=== PATIENT | male | born 1950 | race Caucasian/White ===

== ENCOUNTER 2025-01-01 07:08 | Outpatient (CLI) | payer OTHER, SELFPAY ==
--- NOTE | ~2025-01-01 | CT_ITS ---
EXAMINATION: CT abdomen pelvis wo/w con DATE: 01/01/2025 08:11 INDICATION: Stage III chronic kidney disease TECHNIQUE: Computed tomography (CT) of the abdomen and pelvis was performed without intravenous contr ast. CT of the abdomen and pelvis was then performed with a total of 130 mL Omnipaque-350 intravenous contrast using a double-bolus technique for simultaneous opacification of the renal parenchyma and r enal collecting system. Automated exposure control and iterative reconstruction technique were employ ed. The dose-length product was 4096.37 mGy-cm. COMPARISON: None FINDINGS: Mild discoid atelectasis/scarring at the bilateral lung bases. Heart size is normal. No pericardial o r pleural effusion. Diffuse hepatic steatosis with focal sparing along the gallbladder fossa. Gallbla dder, spleen, pancreas and bilateral adrenal glands are normal. Extensive diverticulosis without salvador cent from trace stranding to suggest diverticular colitis. Likely prior sigmoidectomy with anastomoti c suture line along the short sigmoid colon. Small bowel and appendix are normal. Nephrolithiasis with 2 nonobstructing stones in the right kidney the larger measuring 11 mm at the re nal pelvis and the smaller 2 mm stone in a middle calyx.. No hydronephrosis. The right ureter is opac ified in its near entirety on the post contrast images. No contrast evident within the normal caliber left ureter. No urothelial irregularity is identified at the bilateral renal collecting systems and right ureter. Decompressed bladder is normal. Prostatomegaly. Small fat-containing left inguinal karyna ia. No free intraperitoneal gas or fluid. Severe lumbar and lower thoracic spondylosis. Severe left-s ided and moderate to severe right-sided hip osteoarthritis. IMPRESSION: 1. Bilateral nephrolithiasis including a 3 mm stone in the proximal left ureter without hydronephrosi s. 2. Diffuse hepatic steatosis. 3. Diverticulosis. Reviewed, dictated and finalized at location A. IMPRESSION: 1. Bilateral nephrolithiasis including a 3 mm stone in the proximal left ureter without hydronephrosis. 2. Diffuse hepatic steatosis. 3. Diverticulosis.
--- OUTSIDE RECORDS SUMMARY | 2025-01-01 07:12 | XMS_ITS | Encounter Summary ---
Author Organization [facility] Address 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
--- OUTSIDE RECORDS SUMMARY | 2025-01-01 07:12 | XMS_ITS | Encounter Summary ---
Author Organization [facility] Address [address] [place] [address] Care Team Providers Care Etymology Teacher Name Role Phone Unavailable Primary Care Provider Unavailabl e Encounter Details Date Type Department Care Team (Late st Contact Info) Description 07/24/2018 Lab Requisition [facility] [address] [facility] [place] [address] Gary Bergeron MD [facility] [address] [address] Social History Tobacco Use Types Packs/Day Years Used Date Smoking Tobacco: Never Smokeless Tobacco: Never Sex and Gender Information Value Date Recorded Sex Assigned at Not on file Legal Sex Male 7:37 AM CDT Gender Identity Not on file Sexual Orientation Not on file documented as of this encounter Plan of Treatment Not on file documented as of this encounter Procedures Procedure Name Priority Date/Time Associated Diagnosis Comments DERMATOPATHOLOGY Routine 07/23/2018 12:0 0 AM FLUOROSCOPE OPERATOR documented in this encounter Results * DERMATOPATHOLOGY (07/23/2018 12:00 AM FLUOROSCOPE OPERATOR) Case Report Dermatopathology Report Case: [id number] Authorizing Provider: Gary Bergeron MD Collected: 07/23/2018 12:00 AM Pathologist: Remedios Barriga MD Received: 07/24/2018 09:32 AM Specimen: Skin, mid upper back 8 12:56 PM FLUOROSCOPE OPERATOR DERMATOPATHOLOGY LABORATORY Final Diagnosis Specimen A. SKIN, mid upper back: BASAL CELL CARCINOMA, NODULAR TYPE (C44.519) 8 12:56 PM FLUOROSCOPE OPERATOR DERMATOPATHOLOGY LABORATORY Clinical History R/O BCC 12:56 PM [facility] DERMATOPATHOLOGY LABORATORY Gross Description Specimen A: Received is one formalin filled container labeled with the patient's name and designated mid upper back. The specimen consists of a shave biopsy measuring 6x5x1 mm. Jar 0. 12:56 PM [facility] DERMATOPATHOLOGY LABORATORY Microscopic Description Specimen A. SKIN, mid upper back: Within the dermis there are aggregates of basaloid cells with a high nuclear to cytoplasmic ratio and peripheral palisading. 12:56 PM [facility] DERMATOPATHOLOGY LABORATORY Disclaimer An external and internal positive and negative controls are appropriate for the histochemical, immunohistochemical and immunofluorescence stain(s) in this case (if any), except where stated explicitly. The performance characteristics of the stain(s) cited in this report were developed and its performance characteristic determined by the Dermatopathology Laboratory at [facility]. These tests need not be, and therefore are not, approved by the [place] Food and Drug Administration. The tests are used for clinical purposes. Billing Codes Specimen Charges Stain Charges 93716 1 12:56 PM [facility] DERMATOPATHOLOGY LABORATORY Embedded Images 12:56 PM [facility] DERMATOPATHOLOGY LABORATORY Pathology/Cytolog y TISSUE SPECIMEN FROM SKIN / Unknown 07/23/2018 07/24/2018 9:32 AM FLUOROSCOPE OPERATOR us Gary Bergeron MD LAB - PATHOLOGY/CYTOLOGY ORDERAB LES Final Result DERMATOPATHOLOGY LABORATORY [facility] - Department of Dermatology [address] [place] [address], [address] [place] [address], [facility] [phone] documented in this encounter Visit Diagnoses Not on filedocumented in this encounter
--- OUTSIDE RECORDS SUMMARY | 2025-01-01 07:12 | XMS_ITS | Referral Summary ---
Author Organization [facility] Address [address] [place] [address] Care Team Providers [employer] Engraver Name Role Phone Ever Gr MD Primary Care Provider + Jack Washington MD Unavailable [phone] Ever Gaspar MD Unavailable + [phone] Matt Martinez NP Unavailable [phone] Encounters Date Type Department Care Team Description 12/31/2024 8:28 AM CDT - 12/31/2024 11:59 PM CDT Hospital Encounter [facility] Cardiology [address] [place] [id number] Dyspnea, unspecified type Discharge Disposition: Discharge to home or self care 12/22/2024 8:25 AM CDT Lab [address] [address] 12/17/2024 9:25 AM CDT Lab [address] [address] 12/12/2024 8:10 AM CDT Lab [address] [address] 12/11/2024 10:50 AM CDT [address] [address] 12/08/2024 Orders Only [facility] [address] [place] [id number] Gary Bergeron MD 12/07/2024 8:10 PM CDT - 12/07/2024 10:41 PM CDT Emergency [facility] Emergency Department [address] [place] [address] Rash (Primary Dx) Discharge Disposition: Discharge to home or self care 10/28/2024 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/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:59 PM 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 Hospital Encounter [facility] Diagnostic Imaging [address] [place] [address] Kaleb Noel MD Dyspnea, unspecified type Discharge Disposition: Discharge to home or self care from Last 3 Months Allergies Active Allergy Reactions Criticality Noted Date Comments Hydromorphone Hallucinations Medium 10/14/2017 Naproxen Other (See comments) Low GI upset Penicillins Hives,Other (See comments),Urticaria Medium 07/12/2017 Penicillin Allergy Form Completed Phenytoin Nausea & Vomiting Low 01/21/2019 Medications cholecalciferol (VITAMIN D-3) 1,000 unit tablet Take 2 tablets (2,000 Units total) by mouth daily Active memantine (NAMENDA) 10 mg tablet Take 1 tablet (10 mg total) by mouth 2 (two) times a day Active vitamin B complex capsule Take 1 capsule by mouth daily Active fluticasone-umec lidin-vilanter (Trelegy Ellipta) 200-62.5-25 mcg inhaler Inhale 1 puff daily Active omega-3 fatty acids 1,000 mg capsule Take 1,000 mg by mouth daily Active rosuvastatin (CRESTOR) 40 mg tablet Take 1 tablet (40 mg total) by mouth daily Active donepeziL (ARICEPT) 10 mg tablet Take 1 tablet (10 mg total) by mouth nightly Active tadalafiL (CIALIS) 5 mg tablet Take 0.5 tablets (2.5 mg total) by mouth daily 30 tablet 11 06/08/20 22 Active albuterol 2.5 mg /3 mL (0.083 %) nebulizer solution Take 3 mL (2.5 mg total) by nebulization every 6 (six) hours as needed for wheezing Active Tezspire 210 mg/1.91 mL (110 mg/mL) pen injector 01/08/20 24 Active lactobacillus combination no.4 (Probiotic) 3 billion cell capsule Active Airsupra 90-80 mcg/actuation HFA aerosol inhaler Inhale 2 puffs every 6 (six) hours as needed 05/01/20 24 Active magnesium oxide (MAG-OX) 400 mg (241.3 mg elemental magnesium) tablet Take 1 tablet (400 mg total) by mouth daily Active polyethylene glycol (MIRALAX) 17 gram/dose bulk powder Take 17 g by mouth daily Active multivit-min/fol ic/vit K/lycop (MEN'S MULTIVITAMIN ORAL) Take by mouth Active senna-docusate (PERICOLACE) 8.6-50 mg 1-2 times daily as needed for constipation 60 tablet 1 06/03/20 24 Active ondansetron (ZOFRAN) 4 mg tablet Every 4-6 hours as needed 30 tablet 1 06/03/20 24 Active ascorbic acid (VITAMIN C) 500 mg tablet,chewable Take 1 tablet/chew tab (500 mg total) by mouth 2 (two) times a day 60 tablet/chew tab 06/03/20 24 Active aspirin 81 mg chewable tablet Take 1 tablet (81 mg total) by mouth 2 (two) times a day 60 tablet 06/03/20 24 Active oxyCODONE-acetam inophen (PERCOCET) 5-325 mg per tabletIndication s:Pain Take 1-2 tablets by mouth every 4 (four) hours as needed for pain 63 tablet 06/03/20 24 Active traMADoL (ULTRAM) 50 mg tablet Take 1 tablet (50 mg total) by mouth every 6 (six) hours as needed for pain Active predniSONE (DELTASONE) 10 mg tablet Take 6 tablets (60 mg) by mouth daily for 2 days, THEN 4 tablets (40 mg) daily for 2 days, THEN 3 tablets (30 mg) daily for 2 days, THEN 2 tablets (20 mg) daily for 2 days, THEN 1 tablet (10 mg) daily for 2 days. 32 tablet 12/08/19 25 025 Active Problems Problem Noted Date Diagnosed Date S/P TKR (total knee replacement), right 06/02/20 24 Primary osteoarthritis of right knee 05/14/2024 Arthritis 01/10/2024 Rhinitis 01/10/2024 Mixed hyperlipidemia 05/28/2023 Assessment & Plan (04/28/2024 9:04 AM CDT): Continue Crestor Assessment & Plan (05/28/2023 1:20 PM CDT): Continue Crestor for hyperlipidemia. 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 There are no new EKG changes. The pattern of the chest pain is not compatible with coronary ischemia. I did offer the patient a stress test though he has had 2 negative stress tests over the last 3 years. He defers at this time. Seborrheic keratosis 05/19/2021 Senile angioma 05/19/2021 Sepsis 04/24/2021 Perirectal abscess 04/23/2021 Diastolic dysfunction 04/04/2021 Assessment & Plan (04/03/2022 10:16 AM CDT): Asymptomatic with no evidence of congestive heart failure. Assessment & Plan (04/04/2021 10:57 AM CDT): Stable. His dyspnea has improved with treatment of his asthma. No changes recommended. Left anterior fascicular block 04/04/2021 Assessment & Plan (04/28/2024 9:04 AM CDT): No signs or symptoms of advanced heart block. EKG is stable. Assessment & Plan (05/28/2023 1:19 PM CDT): Stable. No signs or symptoms of advancing heart block. Recheck in 1 year Assessment & Plan (04/03/2022 10:16 AM CDT): Stable and unchanged. Assessment & Plan (04/04/2021 10:57 AM CDT): Stable. No syncope. 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 06/23/2019 Primary osteoarthritis of left knee 05/14/2019 Overview (05/14/2019): Added automatically from request for surgery [id number] Abnormal CT scan 02/16/2019 Overview (02/16/2019): Added automatically from request for surgery [id number] Abnormal feces 02/16/2019 Overview (02/16/2019): Added automatically from request for surgery [id number] Chronic pain of left knee 08/27/2018 Arthritis of left knee 08/27/2018 Acute medial meniscus tear of left knee 08/27/20 18 Preoperative evaluation to r ule out surgical contraindication 06/11/2018 Assessment & Plan (04/28/2024 9:03 AM CDT): The patient is cleared for the proposed total knee replacement. Rotator cuff arthropathy of left shoulder 2017 Overview (05/27/2018): Added automatically from request for surgery [id number] Bicipital tendinitis, left 05/27/2018 Overview (05/27/2018): Added automatically from request for surgery [id number] Localized osteoarthritis of left shoulder 2017 Obstructive sleep apnea syndrome 03/21/2018 Myalgia 02/10/2018 Rotator cuff arthropathy, left 11/21/2017 Overview (11/21/2017): Added automatically from request for surgery [id number] Left bicipital tenosynovitis 11/21/2017 Overview (11/21/2017): Added automatically from request for surgery [id number] Cervicalgia 10/15/2017 Cervical radiculopathy 10/15/2017 Spondylosis of cervical joint without myelopathy 10/15/2017 Cervical spinal stenosis 10/15/2017 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 04/30/2017 Numbness of foot 08/24/2016 Overview (12/13/2016): Numbness of foot 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 Patient is tired of having these debilitating recurrent symptoms. Flex sigmoidoscopy done while in hospital, most recent colonoscopy done 2 years ago. The procedure of robotic assisted sigmoidectomy was explained to the patient along with the risks, benefits, and post operative period including short hospital stay after surgery to which the patient agrees. Immunizations Immunization Administration Dates Next Due Influenza, Unspecified 06/09/2021 Tdap 04/13/2020,10/09/2007 Social History Tobacco Use Types Packs/Day Years Used Date Smoking Tobacco: Never Smokeless Tobacco: Never Tobacco Cessation:Counseling Given: Not Answered Alcohol Use Standard Drinks/Week Comments Yes 1 (1 standard drink = 0.6 oz pur e alcohol) AUDIT-C Answer Date Recorded Q1: How often do you have a drink containing alc ohol? Monthly or less 06/02/2024 Q2: How many drinks containi ng alcohol do you have on a typical day when you are drinking? 1 or 2 06/02/2024 Frequency of Binge Drinking Not on file 05/11 PHQ-2 Answer Date Recorded PHQ-2 Total Score (If total score is 3 or more points, staff should administer the PHQ-9) 0 04/24/2021 Personal Safety Answer Date Recorded Have you ever been in or are you currently in a harmful physical or emotional relationship or is someone making you feel afraid or unsafe? 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 Gender Identity Not on file Sexual Orientation Not on file Last Filed Vital Signs Vital Sign Reading Time Taken Comments Blood Pressure 158/90 12/07/2024 8:06 PM CDT Pulse 73 12/07/2024 8:06 PM CDT Temperature 36.5 C (97.7 F) 12/07/2024 8:06 PM CDT Respiratory Rate 18 12/07/2024 8:06 PM CDT Oxygen Saturation 94% 12/07/2024 8:06 PM CDT Inhaled Oxygen Concentration - - Weight 101.6 kg (224 lb) 12/07/2024 8:06 PM CDT Height 177.8 cm (5' 10 ) 12/07/2024 8:06 PM CDT Body Mass Index 32.14 12/07/2024 8:06 PM CDT Plan of Treatment Not on file Medical Devices Implanted Type Area Tin Roofer Device Identifier Shelf Expiration Date Model / Serial / Lot Exactech 320-38-00 Equinoxe 38mm Reverse Shoulder +0mm Liner Humeral - [id number] - [id number] Implanted:Qty: 1 on 06/10/2018 by Steven Downs MD at [facility] Other - see comments Left: Shoulder Exactech 320-38-00 / [id number] / Exactech 320-01-38 38mm Glenosphere Reverse Shoulder Component Glenoid - [id number] - [id number] Implanted:Qty: 1 on 06/10/2018 by Steven Downs MD at [facility] Other - see comments Left: Shoulder Exactech 05/07/2028 320-01-38 / [id number] / Exactech 320-15-01 Equinoxe Reverse Shoulder Standard Plate Glenoid - [id number] - [id number] Implanted:Qty: 1 on 06/10/2018 by Steven Downs MD at [facility] Other - see comments Left: Shoulder Exactech 04/13/2028 320-15-01 / [id number] / Exactech 320-20-00 Reverse Torque Define Shoulder Kit Screw - [id number] - [id number] Implanted:Qty: 1 on 06/10/2018 by Steven Downs MD at [facility] Other - see comments Left: Shoulder Exactech 05/07/2023 320-20-00 / [id number] / Exactech 320-20-18 Equinoxe 4.5mm 18mm Kit Compression Lock Cap Reverse Shoulder - [id number] - [id number] Implanted:Qty: 1 on 06/10/2018 by Steven Downs MD at [facility] Other - see comments Left: Shoulder Exactech 01/14/2023 320-20-18 / [id number] / Exactech [id number]- Equinoxe Reverse Shoulder +0mm Tray Humeral Adapter - [id number] - [id number] Implanted:Qty: 1 on 06/10/2018 by Steven Downs MD at [facility] Other - see comments Left: Shoulder Exactech 04/07/2028 320-10-00 / [id number] / Exactech 300-30-08 Equinoxe 8mm 70mm Stem Humeral Sterile - [id number] - [id number] Implanted:Qty: 1 on 06/10/2018 by Steven Downs MD at [facility] Other - see comments Left: Shoulder Exactech 11/27/2027 300-30-08 / [id number] / Exactech 320-15-05 Equinoxe Lock Reverse Shoulder Glenosphere Screw Bone - [id number] - [id number] Implanted:Qty: 1 on 06/10/2018 by Steven Downs MD at [facility] Screw Left: Shoulder Exactech 06/08/2023 320-15-05 / [id number] / Exactech 320-20-38 Equinoxe 4.5mm 38mm Kit Compression Lock Cap Reverse Shoulder - [id number] - [id number] Implanted:Qty: 1 on 06/10/2018 by Steven Downs MD at [facility] Screw Left: Shoulder Exactech 01/08/2023 320-20-38 / [id number] / Exactech 320-20-18 Equinoxe 4.5mm 18mm Kit Compression Lock Cap Reverse Shoulder - [id number] - [id number] Implanted:Qty: 1 on 06/10/2018 by Steven Downs MD at [facility] Screw Left: Shoulder Exactech 03/22/2021 320-20-18 / [id number] / Depuy [employer] [id number] Attune 5mm Cruciate Retaining Rotate Platform Knee 8 Insert - [id number] Implanted:Qty: 1 on 06/02/2019 by Steven Downs MD at [facility] Left: Knee [employer] 04/08/2024 [id number] / / [id number] Depuy [employer] [id number] Attune Cruciate Retain Cementless Knee Left 8 Component Femoral - [id number] Implanted:Qty: 1 on 06/02/2019 by Steven Downs MD at [facility] Left: Knee [employer] 10/09/2027 [id number] / / [id number] [employer] [id number] Attune Cementless Rotate Platform Knee 8 Baseplate Tibial - [id number] Implanted:Qty: 1 on 06/02/2019 by Steven Downs MD at [facility] Left: Knee [employer] 06/08/2028 [id number] / / [id number] [employer] Attune Cruciate Retain Cementless Knee Right 8 Component Femoral [id number] - [id number] Implanted:Qty: 1 on 06/02/2024 by Steven Downs MD at [facility] Right: Knee [employer] [id number] 04/08/2034 [id number] / / [id number] [employer] Attune Fb Tib Base Sz 7 Por [id number] - [id number] Implanted:Qty: 1 on 06/02/2024 by Steven Downs MD at [facility] Right: Knee [employer] [id number] 03/08/2034 [id number] / / [id number] [employer] Insert Tibial Knee Fixed Rm Posterior Stabilized Attune 6mm Size 8 Polyethylene [id number] - [id number] Implanted:Qty: 1 on 06/02/2024 by Steven Downs MD at [facility] Right: Knee [employer] [id number] 02/06/2031 [id number] / / [id number] Explanted Type Area Tin Roofer Device Identifier Shelf Expiration Date Model / Serial / Lot [employer] [id number] 6fr 24cm 145cm Radiopaque Positioner Filiform Flexible Tip - [id number] Implanted:Qty: 1 on 09/13/2022 by Kristie Mcfarland MD at [facility] Explanted:Qty: 1 on 09/21/2022 by Kristie Mcfarland MD Left: Ureter [employer] [id number] 12/05/2024 [id number] / / [id number] [employer] [id number] 6fr 24cm 145cm Radiopaque Positioner Filiform Flexible Tip - [id number] Implanted:Qty: 1 on 09/13/2022 by Kristie Mcfarland MD at [facility] Explanted:Qty: 1 on 09/21/2022 by Kristie Mcfarland MD Right: Ureter [employer] [id number] 12/05/2024 [id number] / / [id number] Procedures Procedure Name Priority Date/Time Associated Diagnosis Comments TRANSTHORACIC ECHO (TTE) COMPLETE W DOPPLER/CF WO CONTRAST Routine 12/31/2024 9:39 AM CDT Dyspnea, unspecified type ANTI-DOUBLE STRANDED DNA ANTIBODIES Routine 12/22/2024 8:31 AM CDT ANN MARIE QUALITATIVE WITH REFLEX TO ANN MARIE QUANTITATIVE Routine 12/22/2024 8:31 AM CDT URINALYSIS, MICROSCOPIC ONLY Routine 12/17/2024 9:27 AM CDT URINE CULTURE Routine 12/17/2024 9:27 AM CDT URINALYSIS AND REFLEX TO MICROSCOPIC AND CULTURE Routine 12/17/2024 9:27 AM CDT CRYOGLOBULIN, SERUM ONLY Routine 12/12/2024 8:12 AM CDT URINALYSIS, MICROSCOPIC ONLY Routine 12/11/2024 11:00 AM CDT URINALYSIS AND REFLEX TO MICROSCOPIC Routine 12/11/2024 11:00 AM CDT HEPATITIS PANEL, ACUTE Routine 12/11/2024 11:00 AM CDT URINE CULTURE Routine 12/11/2024 11:00 AM CDT HIV 1/2 ANTIBODY PLUS P24 ANTIGEN Routine 12/11/2024 11:00 AM CDT SURGICAL PATHOLOGY Routine 12/08/2024 12 :00 AM CDT EGFR STAT 12/07/2024 9:48 PM CDT DIFFERENTIAL AUTO STAT 12/07/2024 9:4 8 PM CDT SEPSIS LACTATE WITH REFLEX Routine 12/07/2024 9:48 PM CDT COMPREHENSIVE METABOLIC PANEL STAT 12/07/2024 9:48 PM CDT CBC WITH AUTO DIFFERENTIAL STAT 12/07/2024 9:48 PM CDT XR CHEST PA LATERAL 2 VIEWS Schedule Routine, Read Routine (OP Routine) 10/28/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 Dyspnea, unspecified type PSA SCREEN Routine 02/18/2024 8:12 AM CDT FLEXIBLE SIGMOIDOSCOPY 04/24/2021 9:06 AM CDT COLONOSCOPY 03/10/2019 11:02 AM CDT from Last 3 Months or Most Recently Relevant to Health Maintenance Results * TRANSTHORACIC ECHO (TTE) COMPLETE W DOPPLER/CF WO CONTRAST (12/31/2024 9:39 AM CDT) LV EF 65 % CONS SCIMAGE Anatomical Region Laterality Modality Ultrasound 12/31/2024 9:04 AM CDT Narrative 12/31/2024 2:24 PM CDT [address] [address] Echocardiogram Report Patient Name: CINTHIA VOSS : 1950 Study Date: 12/31/2024 9:04:18 AM Gender: M Tech: CAROL Location: Echo Lab 2 Ref Provider: FRANKLYN NOEL Height(Cm): BSA: Weight(Kg): Quality: Adequate Order Provider: FRANKLYN NOEL PROCEDURES: Echocardiographic Report: Transthoracic echocardiogram with complete 2D, M-Mode, and color Doppler examination. INDICATIONS: Dyspnea and R06.00 Dyspnea, unspecified. MEASUREMENTS: 2D/MM Value Range Doppler Value Range EF Teich MM 47.8 % [ 52.0 - 72.0 ] MCKENZIE Vmax 3.37 cm2 Estimated EF 65 % AV Mean PG 1 mmHg LVIDd MM 4.35 cm [ 4.20 - 5.80 ] AV Peak Herve 0.64 m/s [ 1.00 - 1.70 ] LVIDs MM 3.32 cm [ 2.50 - 4.00 ] AV VTI 11.36 cm LVPWd MM 1.41 cm [ 0.60 - 1.00 ] LVOT Diam 2.43 cm IVSd MM 1.27 cm [ 0.60 - 1.00 ] LVOT Peak Herve 0.46 m/s [ 0.70 - 1.10 ] LA Dimension MM 3.76 cm [ 3.00 - 4.00 ] LVOT VTI 8.57 cm AoR Diam MM 3.80 cm [ 3.10 - 3.70 ] MV E Peak Herve 0.33 m/s [ 0.60 - 1.30 ] MV A Peak Herve 0.57 m/s [ 1.00 - 1.20 ] MV Mean PG 1 mmHg MV PHT 31 msec [ 20 - 100 ] MVA 7.00 MV Decel Time 108 msec [ 104 - 258 ] PV Peak Herve 0.75 m/s [ 0.40 - 0.80 ] RVSP 8.00 mmHg [ 10.00 - 36.00 ] E` 0.04 m/s E/E` 7.93 [ <= 10.00 ] PA Pressure 8.00 mmHg [ 10.00 - 36.00 ] 2D/MM Value Range Doppler Value Range - FINDINGS: Atrial Septum: Normal atrial septum. Left Ventricle: Normal left ventricular systolic function with no focal wall motion abnormalities. Normal left ventricular size. Mild concentric left ventricular hypertrophy. Impaired diastolic relaxation Grade I. Ejection Fraction is estimated to be 65 %. Left Atrium: The left atrium is normal in size. Right Ventricle: Normal right ventricular size. Normal right ventricular systolic function. Right Atrium: The right atrium is normal in size. Aortic Valve: Normal structure of the aortic valve. Mitral Valve: Normal structure of the mitral valve. Pulmonic Valve: Normal structure of the pulmonic valve. Tricuspid Valve: Right Ventricular Systolic Pressure could not be estimated due to inadequate visualization of TR jet. Pericardium: There is an anterior echo free space consistent with epicardial fat pad. Aorta: Normal aortic root. Sinus of Valsalva is normal. Aortic arch is normal. Descending aorta is normal. IVC: Normal size and normal respiratory collapse consistent with normal right atrial pressure (<5 mmHg). Pulmonary Artery: Normal pulmonary artery size. CONCLUSIONS: Normal left ventricular systolic function with no focal wall motion abnormalities. Normal left ventricular size. Mild concentric left ventricular hypertrophy. Impaired diastolic relaxation Grade I. Ejection Fraction is estimated to be 65 %. Right Ventricular Systolic Pressure could not be estimated due to inadequate visualization of TR jet. There is an anterior echo free space consistent with epicardial fat pad. Electronically Signed By: Callum Elias MD 12/31/2024 2:23:23 PM CDT Procedure Note Callum Elias MD - 12/31/[address] [address] Echocardiogram Report Patient Name: CINTHIA VOSS : 1950 Study Date: 12/31/2024 9:04:18 AM Gender: M Tech: CAROL Location: Echo Lab 2 Ref Provider: FRANKLYN NOEL Height(Cm): BSA: Weight(Kg): Quality: Adequate Order Provider: FRANKLYN NOEL PROCEDURES: Echocardiographic Report: Transthoracic echocardiogram with complete 2D, M-Mode, and color Dopplerexamination. INDICATIONS: Dyspnea and R06.00 Dyspnea, unspecified. MEASUREMENTS: 2D/MM Value Range Doppler ValueRange EF Teich MM 47.8 % [ 52.0 - 72.0 ] MCKENZIE Vmax 3.37cm2 Estimated EF 65 % AV Mean PG 1 mmHg LVIDd MM 4.35 cm [ 4.20 - 5.80 ] AV Peak Herve 0.64 m/s[ 1.00 - 1.70 ] LVIDs MM 3.32 cm [ 2.50 - 4.00 ] AV VTI 11.36cm LVPWd MM 1.41 cm [ 0.60 - 1.00 ] LVOT Diam 2.43cm IVSd MM 1.27 cm [ 0.60 - 1.00 ] LVOT Peak Herve 0.46 m/s[ 0.70 - 1.10 ] LA Dimension MM 3.76 cm [ 3.00 - 4.00 ] LVOT VTI 8.57cm AoR Diam MM 3.80 cm [ 3.10 - 3.70 ] MV E Peak Herve 0.33 m/s[ 0.60 - 1.30 ] MV A Peak Herve 0.57 m/s [ 1.00 - 1.20 ] MV Mean PG 1 mmHg MV PHT 31 msec [ 20 - 100 ] MVA 7.00 MV Decel Time 108 msec [ 104 - 258 ] PV Peak Herve 0.75 m/s [ 0.40 - 0.80 ] RVSP 8.00 mmHg [ 10.00 - 36.00 ] E` 0.04 m/s E/E` 7.93 [ <= 10.00 ] PA Pressure 8.00 mmHg [ 10.00 - 36.00 ] 2D/MM Value Range Doppler ValueRange - FINDINGS: Atrial Septum: Normal atrial septum. Left Ventricle: Normal left ventricular systolic function with no focal wall motionabnormalities. Normal left ventricular size. Mild concentric left ventricular hypertrophy.Impaired diastolic relaxation Grade I. Ejection Fraction is estimated to be 65 %. Left Atrium: The left atrium is normal in size. Right Ventricle: Normal right ventricular size. Normal right ventricular systolicfunction. Right Atrium: The right atrium is normal in size. Aortic Valve: Normal structure of the aortic valve. Mitral Valve: Normal structure of the mitral valve. Pulmonic Valve: Normal structure of the pulmonic valve. Tricuspid Valve: Right Ventricular Systolic Pressure could not be estimated due toinadequate visualization of TR jet. Pericardium: There is an anterior echo free space consistent with epicardial fat pad. Aorta: Normal aortic root. Sinus of Valsalva is normal. Aortic arch is normal.Descending aorta is normal. IVC: Normal size and normal respiratory collapse consistent with normal rightatrial pressure (<5 mmHg). Pulmonary Artery: Normal pulmonary artery size. CONCLUSIONS: Normal left ventricular systolic function with no focal wall motionabnormalities. Normal left ventricular size. Mild concentric left ventricular hypertrophy.Impaired diastolic relaxation Grade I. Ejection Fraction is estimated to be 65 %. Right Ventricular Systolic Pressure could not be estimated due toinadequate visualization of TR jet. There is an anterior echo free space consistent with epicardial fat pad. Electronically Signed By: Callum Elias MD 12/31/2024 2:23:23 PM CDT us Franklyn Noel MD CV ECHO PROCEDURES Gena l Result * ANN MARIE ab ql w/rflx to ANN MARIE qn (12/22/2024 8:31 AM CDT) ANN MARIE Negative Comment: Interpretive Data Normal range for ANN MARIE Qualitative Antibody = Negative. 1. ANN MARIE is performed using indirect immunofluorescence against HEp-2 cells 2. ANN MARIE titers are performed on all positive qualitative results. 3. A significantly positive ANN MARIE result is defined as a positive nuclear fluorescence at a titer of 1:80 or greater. 4. 15% of normal people above age 65 have significantly positive ANN MARIE results. 5% or less of normal people age 65 or under have significantly positive ANN MARIE results. Current interpretive data was last revised on 2020. Testing performed by: [facility], [address] [place] [address], [place]., [address] Blood 12/22/2024 8:31 AM CDT 12/22/2024 2:28 PM CDT us Gary Bergeron MD LAB BLOOD ORDERABLES Final Resu lt ASHLYN JASPAL ([place]) 1 [facility] Department [place] [address] * Anti-double stranded DNA abs (12/22/2024 8:31 AM CDT) dsDNA Ab <1.0 <=4.0 IUnits/mL Comment: Interpretive Data Negative: < or = 4 IUnits/mL Indeterminate: 5 - 9 IUnits/mL Positive: > or = 10 IUnits/mL Current interpretive data was last revised on 2017. Testing performed by: [facility], [address] [place] [address], [place]., [address] Blood 12/22/2024 8:31 AM CDT 12/22/2024 2:28 PM CDT Narrative ASHLYN SHAY ([place]) - 12/23/2024 10:57 AM CDT [id number] us Gary Bergeron MD LAB BLOOD ORDERABLES Final Resu lt Performing Organization Address City/[facility]/ZIP Co de Phone Number ASHLYN SHAY ([place]) 1 [facility] [employer] [address] * (ABNORMAL) Urinalysis reflex to microscopic and culture Urine (12/17/2024 9:27 AM CDT) Color, ur Dark-Yellow Clarity, ur Turbid(A) Clear [facility] ([place]) Specific gravity, ur 1.026 1.003 - 1.030 [facility] ([place]) pH, urine 6.0 [facility] ([place]) Comment: Interpretive Data U rine pH is affected by diet, medications, systemic acid-base disturbances, and renal tubular function. pH may affect urinary stone formation. For example, urine pH below 6.0 may help reduce the tendency for calcium phosphate stones and pH greater than 6.0 may reduce the tendency for uric acid stone formation. Source: [facility] [employer] Current Interpretive Data was last revised on 2017 Protein, ur ql 1+(A) Negative [facility] ([place]) Glucose, ur ql Negative Negative [facility] [place]) Ketones, ur Negative Negative [facility] ([place]) Bilirubin, ur Negative Negative [facility] ([place]) Blood, ur 3+(A) Negative [facility] [place]) Urobilinogen, ur <2.0 <2.0 mg/dL [facility] [place]) Nitrite, ur Negative Negative [facility] [place]) Leukocyte esterase, ur 2+(A) Negative [facility] [place]) UA reflex comment Reflex to microscopic UA will be performed. [facility] [place]) Urine 12/17/2024 9:27 AM CDT 12/17/2024 10:41 AM CDT us Ever Gr MD LAB MICROBIOLOGY - GENER AL ORDERABLES Final Result Performing Organization Address City/[facility]/ZIP Co de Phone Number ASHLYN SHAY ([place]) 1 [facility] [place] [address] * (ABNORMAL) Urinalysis, microscopic only (12/17/2024 9:27 AM CDT) WBC, ur 21-50(A) 0 - 5 /HPF RBC, ur >50(A) 0 - 2 /HPF [facility] Epithelial cells, squamous, ur 1-5 0 - 5 /HPF [facility] ([place]) Mucous, ur Present(A) [facility] [place] ([place]) Culture Reflex Comment Reflex to urine culture will be performed. [facility] ([place] Urine 12/17/2024 9:27 AM CDT 12/17/2024 10:41 AM CDT Ever Gr MD LAB URINE ORDERABLES Fin al Result Performing Organization Address [facility]/ZIP Co de Phone Number [facility] ([place]) [address] [place] [address] [place] [address] * Urine culture Urine (12/17/2024 9:27 AM CDT) Report Final Report: Less than 100,000 colonies/mL (clinically insignificant growth based on current clinical standards) Comment:Testing performed by : [facility], [address] [place]., [address] Organism (CLINICALLY INSIGNIFICANT GROWTH ASHLYN [facility] ([place]) Urine 12/17/2024 9:27 AM CDT 12/17/2024 3:34 PM CDT Narrative [facility] ([place]) - 12/19/2024 7:41 AM CDT Urine culture reflexed based upon urinalysis results. Testing performed by [facility] ([phone]) Ever Gr MD LAB MICROBIOLOGY - GENER AL ORDERABLES Final Result Performing Organization Address City/[facility]/ZIP Co de Phone Number ASHLYN [facility] ([place]) 1 [facility] [place] [place] [address] * Cryoglobulin, serum only (12/12/2024 8:12 AM CDT) [facility] Cryoglobulin, quant See Comment Negative [place] ref Lab Comment: Negative. The quantity of serum submitted and received is not sufficient to reliably rule out the presence of a cryoglobulin. Suggest submitting a serum sample of at least 2.0 - 2.5 mL. Test Performed by: [facility] [address] [place] [address] Component Assembler Supervisor: Emerald Solares Ph.D.; CLIA# [id number] Blood 12/12/2024 8:12 AM CDT 12/12/2024 8:17 AM CDT Ever Gr MD LAB BLOOD ORDERABLES Fin al Result Performing Organization Address [facility] Co de Phone Number ASHLYN SHAY ([place]) [address] [place] [id number] [facility] * HIV 1/2 Antibody plus p24 Antigen Blood (12/11/2024 11:00 AM CDT) [facility] HIV 1/2 ab + p24 ag Nonreactive Nonreactive Comment: Nonreactive for HIV-1 antigen and HIV-1/HIV-2 antibodies. No laboratory evidence of HIV infection. If acute HIV infection is suspected, consider testing for HIV-1 RNA. Testing performed by: [facility], [address] [place] [address]., [id number] Blood 12/11/2024 11:0 0 AM CDT 12/11/2024 7:15 PM CDT us Ever Gr MD LAB MICROBIOLOGY - GENER AL ORDERABLES Final Result Performing Organization Address [facility]/ZIP Co de Phone Number ASHLYN SHAY ([place]) 1 [facility] [place] [place] [address] * (ABNORMAL) Urinalysis reflex to microscopic (12/11/2024 11:00 AM CDT) [facility] Color, ur Dark-Yellow Clarity, ur Clear Clear ASHLYN GARCIA ([place]) Specific gravity, ur 1.024 1.003 - 1.030 [facility] ([place]) pH, urine 5.5 [facility] ([place]) Comment: Interpretive Data U rine pH is affected by diet, medications, systemic acid-base disturbances, and renal tubular function. pH may affect urinary stone formation. For example, urine pH below 6.0 may help reduce the tendency for calcium phosphate stones and pH greater than 6.0 may reduce the tendency for uric acid stone formation. Source: [facility] Current Interpretive Data was last revised on 2017 Protein, ur ql 1+(A) Negative [facility] ([place]) Glucose, ur ql Negative Negative [facility] [place]) Ketones, ur Negative Negative [facility] ([place]) Bilirubin, ur Negative Negative [facility] ([place]) Blood, ur 3+(A) Negative [facility] ([place]) Urobilinogen, ur <2.0 <2.0 mg/dL [facility] [place]) Nitrite, ur Negative Negative [facility] [place]) Leukocyte esterase, ur Negative Negative [facility] [place]) UA reflex comment Reflex to microscopic UA will be performed. [facility] ([place]) Urine 12/11/2024 11:0 0 AM CDT 12/11/2024 11:16 AM CDT us Ever Gr MD LAB URINE ORDERABLES Fin al Result [facility] ([place]) 1 [facility] [place] [address] * Hepatitis panel, acute Blood (12/11/2024 11:00 AM CDT) Hep A IgM Nonreactive Nonreactive Comment: Interpretive Data: If Hep A IgM Ab is reported as Equivocal, a new sample should be drawn in two weeks for testing. Current interpretive data was last revised on 19. Testing performed by: [facility], [address] [place] [address]., [id number] Hep B core IgM Nonreactive Nonreactive [facility] ([place]) Comment: Interpretive Data If HepB Core IgM Ab is reported as Equivocal, a new sample should be drawn in two weeks for testing. Current interpretive data was last revised on 19. Testing performed by: [facility], [address] [place] [address]., [id number] Hep C Ab Nonreactive Nonreactive ASHLYN SHAY ([place]) Comment: Interpretive Data Nonreactive: Antibodies to HCV not detected. Does NOT exclude the possibility of recent exposure to HCV. Equivocal: Equivocal for HCV antibodies. Supplemental molecular testing will be automatically performed to determine infection status in accordance with current CDC screening recommendations. Reactive: Positive for HCV antibodies. This may represent current or past HCV infection. Supplemental molecular testing will be automatically performed to determine current infection status in accordance with current CDC screening recommendations. Interpretive data was last revised on 2019. Testing performed by: [facility], [address] [place] [address]., [id number] HepBsAg Nonreactive Nonreactive ASHLYN SHAY ([place]) Comment:Testing performed by : [facility], [address] [place] [address]., [id number] Blood 12/11/2024 11:0 0 AM CDT 12/11/2024 4:22 PM CDT us Ever Gr MD LAB MICROBIOLOGY - GENER AL ORDERABLES Final Result Performing Organization Address [facility] Co de Phone Number ASHLYN SHAY ([place]) 1 [facility] [place] [address] * (ABNORMAL) Urinalysis, microscopic only (12/11/2024 11:00 AM CDT) WBC, ur 6-10(A) 0 - 5 /HPF RBC, ur >50(A) 0 - 2 /HPF [facility] ([place]) Epithelial cells, squamous, ur 1-5 0 - 5 /HPF ASHLYN [facility] ([place]) Mucous, ur Present(A) [facility] ([place]) Urine 12/11/2024 11:0 0 AM CDT 12/11/2024 11:16 AM CDT Ever Gr MD LAB URINE ORDERABLES Fin al Result Performing Organization Address City/[facility]/ZIP Co de Phone Number ASHLYN SHAY ([place]) 1 [facility] Department [place] [address] * Urine culture Urine (12/11/2024 11:00 AM CDT) Report Final Report: Less than 100,000 colonies/mL (clinically insignificant growth based on current clinical standards) Comment:Testing performed by : [facility], [address] [place]., [address] Organism (CLINICALLY INSIGNIFICANT GROWTH ASHLYN SHAY ([place]) Urine 12/11/2024 11:0 0 AM CDT 12/11/2024 2:10 PM CDT Narrative ASHLYN MOLINA) - 12/13/2024 10:27 AM CDT Testing performed by [facility] ([phone]) us Ever Gr MD LAB MICROBIOLOGY - GENER AL ORDERABLES Final Result ASHLYN SHAY ([place]) 1 [facility] Department [place] [address] * Surgical pathology (12/08/2024 12:00 AM CDT) Skin, shave biopsy 12/08/2024 12/09/2024 12:12 PM CDT Narrative 12/17/2024 9:39 PM CDT EPIC results best viewed via link to PDF [facility] [address] [place] [address], [address], [place] [address] [email or web address] Note to Patients: This report may contain a detailed description of human tissue sent by a health care provider to the laboratory for pathologic evaluation. The content of this report is essential for diagnosis and may provide important critical findings. This information may be unfamiliar to patients to review without a medical professional present. It is advised that the patient review this report in the presence of a health care provider who can answer questions and explain the details. FINAL REPORT Patient Information: PATIENT NAME: CINTHIA VOSS SEX: M : 1950 (Age: 74) Specimen Information: COLLECTED: 12/08/2024 RECEIVED: 12/09/2024 REPORTED: 12/17/2024 Submitting Physician Information: Dr. Gary Bergeron M.D. 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 There is no evidence of vasculitis seen in the sections examined. Multiple sections have been cut and studied. Clinical correlation is advised. This case has been reviewed with another member of the dermatopathology faculty who agrees with the diagnosis. exr/spng By this signature, I attest that the above diagnosis is based upon my personal examination of the slides(and/or other material indicated in the diagnosis). Donald Le MD, PhD Report Electronically Reviewed and Signed Out By Donald Le MD, PhD 12/17/2024 21:39:58 CLINICAL INFORMATION SUDDEN DEVELOPMENT OF MULTIPLE RED PAPULES AND SMALL PLAQUES, TORSO AND LOWER EXTS; PALPABLE PURPURA CLINICALLY R/O VASCULITIS, DRUG ERUPTION, ROS: ONE YEAR OF SOB (SHORTNESS OF BREATH), UNKNOWN CAUSE SPECIMEN DATA MICROSCOPIC DESCRIPTION: There is a superficial and deep perivascular inflammatory cell infiltrate that consists of lymphocytes and histiocytes. There is a background of extravasated erythrocytes within the dermis. A PAS stain is negative for the presence fungal hyphal elements. (L98.6) GROSS DESCRIPTION: Received in a formalin-containing bottle is a cylindrical piece of sams, finely scaling skin and adipose tissue measuring 0.4 by 0.3 by 0.3 cm. The surgical margin is inked blue. The specimen is sectioned into 2 pieces and submitted entirely in a single cassette. Due to shrinkage, measurements may be different than those at time of procedure. sxt/mat Clerical Data A; [address], [id number] The characteristics of special, immunohistochemical, and immunofluorescence stains and in-situ hybridization tests performed by the [facility] were deemed acceptable in ongoing clinical quality rn measures and in compliance with regulations drawn from the Clinical Laboratory Improvement Act ru6553 (CLIA '88). Control reactions for all stains performed were deemed adequate and appropriate by a pathologist prior to evaluation of patient tissue. Some diagnoses were rendered with the assistance of laboratory-developed tests utilizing analyte-specific reagents; the performance characteristic of these tests were determined by [facility] and are not cleared or approved by the [place] Food an Drug administration. Laboratory developed test may only be performed in a facility that is certified by the [facility] as a high-complexity laboratory under CLIA '88. These tests are used for clinical purposes and are not investigational. Gary Bergeron MD LAB PATHOLOGY ORDERABLES Final Result * Sepsis Lactate w/ Reflex (12/07/2024 9:48 PM CDT) Sepsis Lactate 1.0 0.7 - 2.0 mmol/L Blood 12/07/2024 9:48 PM CDT 12/07/2024 9:51 PM CDT Cecile MORAES LAB BLOOD ORDERABLES Final Resu lt ASHLYN SHAY [place] 1 [facility] [place] [address] * eGFR (12/07/2024 9:48 PM CDT) eGFR 67 >=60 mL/min/1. 73 m2 Comment: Interpretive Data Reference Interval Normal >/= 90 mL/min/1.73m2 Mildly decreased* 60 - 89 mL/min/1.73m2 Mildly to moderately decreased 45 - 59 mL/min/1.73m2 Moderately to severely decreased 30 - 44 mL/min/1.73m2 Severely decreased 15 - 29 mL/min/1.73m2 Kidney Failure < 15 mL/min/1.73m2 *Relative to young adult level Estimated glomerular filtration rate is determined by the 2020 CKD-EPI equation recommended by the National Kidney Foundation (A Unifying Approach to GFR Estimation: Recommendations of the NKF-ASK Task Force on Reassessing the Inclusion of Race in Diagnosing Kidney Disease, JASN 2020). The CKD-EPI equation should not be used for patients with unstable renal function and has not been validated in children and those over 70. Current interpretive data was last reviewed 2021. Blood 12/07/2024 9:48 PM CDT 12/07/2024 9:51 PM CDT us Cecile MORAES LAB BLOOD ORDERABLES Final Resu lt [facility] ([place]) 1 [facility] [place] [address] * (ABNORMAL) Differential, auto (12/07/2024 9:48 PM CDT) Neutrophil abs 10.8(H) 1.5 - 6.5 K/cumm Imm gran abs 0.1 0.0 - 0.1 K/cumm [facility] ([place]) Lymphocyte abs 2.1 0.8 - 3.3 K/cumm [facility] ([place]) Monocyte abs 0.9(H) 0.2 - 0.8 K/cumm [facility] ([place]) Eosinophil abs 0.2 0.0 - 0.5 K/cumm [facility] ([place]) Basophil abs 0.1 0.0 - 0.1 K/cumm [facility] ([place]) Neutrophil pct 76.4 % [facility] ([place]) Comment: Interpretive Data Percent cell count reference ranges are not reported, since discordance with absolute values may lead to misinterpretation of CBC data. Current Interpretive Data was last revised on 2017. Imm gran pct 0.8 % [facility] ([place]) Comment: Interpretive Data Percent cell count reference ranges are not reported, since discordance with absolute values may lead to misinterpretation of CBC data. Current Interpretive Data was last revised on 2017. Lymphocyte pct 14.9 % [facility] ([place]) Comment: Interpretive Data Percent cell count reference ranges are not reported, since discordance with absolute values may lead to misinterpretation of CBC data. Current Interpretive Data was last revised on 2017. Monocyte pct 6.4 % [facility] ([place]) Comment: Interpretive Data Percent cell count reference ranges are not reported, since discordance with absolute values may lead to misinterpretation of CBC data. Current Interpretive Data was last revised on 2017. Eosinophil pct 1.1 % [facility] ([place]) Comment: Interpretive Data Percent cell count reference ranges are not reported, since discordance with absolute values may lead to misinterpretation of CBC data. Current Interpretive Data was last revised on 2017. Basophil pct 0.4 % [facility] ([place]) Comment: Interpretive Data Percent cell count reference ranges are not reported, since discordance with absolute values may lead to misinterpretation of CBC data. Current Interpretive Data was last revised on 2017. Blood 12/07/2024 9:48 PM CDT 12/07/2024 9:51 PM CDT us Cecile MORAES LAB BLOOD ORDERABLES Final Resu lt [facility] ([place]) 1 [facility] [place] [address] * (ABNORMAL) CBC with auto differential (12/07/2024 9:48 PM CDT) WBC 14.1(H) 3.8 - 9.9 K/cumm Hgb 16.1 13.0 - 17.5 g/dL [facility] ([place]) Hct 47.0 38.9 - 50.3 % [facility] ([place]) Plt 237 150 - 400 K/cumm [facility] ([place]) MPV 9.0(L) 9.1 - 12.3 fL [facility] [place]) RBC 5.52 4.30 - 5.80 M/cumm [facility] [place]) MCV 85.1 81.3 - 96.4 fL [facility] [place]) MCH 29.2 27.1 - 33.3 pg [facility] [place]) MCHC 34.3 32.3 - 35.7 g/dL [facility] [place]) RDW CV 13.7 11.1 - 14.9 % [facility] [place] RDW SD 42.7 35.7 - 48.1 fL [facility] [place]) NRBC abs 0.00 0.00 - 0.01 K/cumm [facility] ([place]) Blood 12/07/2024 9:48 PM CDT 12/07/2024 9:51 PM CDT us Cecile MORAES LAB BLOOD ORDERABLES Final Resu lt [facility] ([place]) 1 [facility] [place] [address] * (ABNORMAL) Comprehensive metabolic panel (12/07/2024 9:48 PM CDT) Sodium 136 135 - 145 mmol/L Potassium, pl 4.0 3.3 - 4.9 mmol/L [facility] ([place]) Chloride 101 97 - 110 mmol/L [facility] [place]) CO2 24 22 - 32 mmol/L [facility] [place] Anion gap 11 2 - 15 mmol/L [facility] [place] BUN 12 6 - 25 mg/dL [facility] [place]) Creatinine 1.15 0.80 - 1.30 mg/dL [facility] [place]) Glucose 123 70 - 199 mg/dL [facility] ([place]) Comment: Interpretive Data Fasting glucose >/= 126 mg/dl is diagnostic for diabetes. Fasting is defined as no caloric intake for at least 8 hours. Fasting glucose between 100 mg/dl to 125 mg/dl is diagnostic of prediabetes. In a patient with classic symptoms of hyperglycemia or hyperglycemic crisis, a random glucose >/= 200 mg/dl is diagnostic for diabetes. In the absence of unequivocal hyperglycemia, results should be confirmed by repeat testing. The classification and Diagnosis of Diabetes Diabetes Care 202; 46: S19-S40. Current interpretive data was last revised 2022. Calcium 10.2 8.5 - 10.3 mg/dL [facility] ([place]) Bilirubin, total 0.8 0.1 - 1.2 mg/dL [facility] ([place]) Protein, pl 6.9 6.5 - 8.5 g/dL [facility] ([place]) Albumin 4.3 3.5 - 5.0 g/dL [facility] [place]) Alk phos 73 40 - 130 Units/L [facility] [place]) ALT 68(H) 7 - 55 Units/L [facility] [place]) AST 44 10 - 50 Units/L [facility] ([place]) Blood 12/07/2024 9:48 PM CDT 12/07/2024 9:51 PM CDT us Cecile MORAES LAB BLOOD ORDERABLES Final Resu lt [facility] ([place]) 1 [facility] [place] [address] * XR Chest PA Lateral 2 Views (10/28/2024 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) Anatomical Region Laterality Modality Body, Chest N/A Computed Radiogr aphy 10/28/2024 9:14 AM 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 Impressions 10/28/2024 9:14 AM 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 No active pulmonary disease. Electronically signed by: Anatoly Ferrari M.D. Narrative 10/28/2024 9:14 AM 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 EXAMINATION: XR CHEST PA LATERAL 2 VIEWS DATE: 10/28/2024 9:00 AM HISTORY: DYSPNEA FINDINGS: There is scarring in the left lower lobe. There is no infiltrate, effusion or pneumothorax. Heart size and pulmonary vascularity are normal. Procedure Note Anatoly Ferrari MD - 10/28/2024 EXAMINATION: XR CHEST PA LATERAL 2 VIEWS DATE: 10/28/2024 9:00 AM HISTORY: DYSPNEA FINDINGS: There is scarring in the left lower lobe. There is no infiltrate, effusion or pneumothorax. Heart size and pulmonary vascularity are normal. IMPRESSION: No active pulmonary disease. Electronically signed by: Anatoly Ferrari M.D. us Kaleb Noel MD IMG XR PROCEDURES Final Result * PSA screen (02/18/2024 8:12 AM CDT) PSA-Total 1.92 <=6.20 ng/mL Comment: Interpretive Data AGE SEX REFERENCE INTERVAL 0 minutes-150 years Female None 0 minutes-49 years Male None 50-59 years Male 0-3.90 60-69 years Male 0-5.40 70-79 years Male 0-6.20 80-150 years Male 0-6.20 The Juan A PSA Total assay procedure was used. Results from different manufacturers or methods may not be comparable. Serial testing should be performed using the same method. Current interpretive data last revised 22. Blood 02/18/2024 8:12 AM CDT 02/18/2024 10:05 AM CDT us Ever Gr MD LAB BLOOD ORDERABLES Fin al Result ASHLYN [facility] ([place]) 1 [facility] [place] [address] * FLEXIBLE SIGMOIDOSCOPY (04/24/2021 9:06 AM CDT) Anatomical Region Laterality Modality Other Narrative Procedure Note Rosa Maria Nielsen MD - 04/24/2021 9:06 AM CDT [facility] Patient Name: Cinthia Voss Procedure Date: 04/24/2021 9:06 AM Date of : 1950 Admit Type: Inpatient Age: 70 Gender: Male Attending MD: Rosa Maria Nielsen M.D. Room: [facility] ENDOSCOPY ROOM 1 Note Status: Finalized Patient Profile: This is a 70 year old male. Patient admitted withthe rectal pain and left lower quadrant pain. CT showed perirectal abscess and questionable mass lesions inside the rectum. Limited sigmoidoscopy forevaluation Procedure: Flexible Sigmoidoscopy Indications: Last colonoscopy: March 2017, Abnormal CT of the GI tract Referring MD: Ever Gr M.D. Providers: Rosa Maria Nielsen M.D. Impression: - No mass lesion inside the rectum. - Internal hemorrhoids - No specimens collected. Recommendation: - Continue present medications. - Surgery consultation - Continue antibiotics. Medicines: None Complications: No immediate complications. Estimated Blood Loss: Estimated blood loss: none. Procedure: Pre-Anesthesia Assessment: - Prior to the procedure, a History and Physicalwas performed, and patient medications and allergieswere reviewed. The patient's tolerance of previous anesthesia was also reviewed. The risks andbenefits of the procedure and the sedation options and risks were discussed with the patient. All questions were answered, and informed consent was obtained. Prior Anticoagulants: The patient has taken no previous anticoagulant or antiplatelet agents. ASA Grade Assessment: II - A patient with mild systemicdisease. After reviewing the risks and benefits, the patient was deemed in satisfactory condition to undergo the procedure. The benefits, risks, and alternatives to theprocedure and sedation were discussed and informed consentwas obtained. The scope was passed under direct vision. The Endoscope [id number] was introduced through the anus and advanced to the the sigmoid colon. The benefits, risks, and alternatives to the procedure and sedation were discussed and informed consent was obtained.The flexible sigmoidoscopy was accomplished without difficulty. The patienttolerated the procedure well. The quality of the bowel preparation was adequate. Findings: Her rectal exam performed earlier showed thickening of the rectalwall in bulging. The scope introduced into the rectum. Stool was found inthe rectum and distal sigmoid colon. Otherwise no mass lesions notedinside the rectum or the distal sigmoid colon. Internal hemorrhoids noted Electronically signed by Rosa Maria Nielsen M.D. Rosa Maria Nielsen M.D. 04/24/2021 9:47:11 AM Number of Addenda: 0 Note Initiated On: 04/24/2021 9:06 AM Procedure Code(s): --- Professional --- 77415, Sigmoidoscopy, flexible; diagnostic, including collection of specimen(s) by brushing or washing, when performed (separateprocedure) Diagnosis Code(s): --- Professional --- R93.3, Abnormal findings on diagnostic imaging of other parts of digestive tract CPT copyright 2019 [employer] [place] [employer]. All rights reserved. The codes documented in this report are preliminary and upon online producer reviewmay be revised to meet current compliance requirements. Recognized by the [employer] [place] [employer] Gastrointestinal End[employer] for promoting quality in endoscopy us Rosa Maria Nielsen MD ENDOSCOPY PROCEDURES Final Result * COLONOSCOPY (03/10/2019 11:02 AM CDT) Anatomical Region Laterality Modality Other Narrative Procedure Note Rosa Maria Nielsen MD - 03/10/2019 11:02 AM CDT Digestive [facility] Patient Name: Cinthia Voss Procedure Date: 03/10/2019 11:02 AM Date of : 1950 Admit Type: Outpatient Age: 68 Gender: Male Attending MD: Rosa Maria Nielsen M.D. Room: [facility] ENDOSCOPY ROOM 1 Note Status: Finalized Patient Profile: 68-year-old white male complains of pain in the left lower quadrant area and the abnormal thin shapedstool. He had recent CT scan of the abdomen pelvis which showed thick narrow segment in the sigmoid colon.Noted he had normal colonoscopy except for diverticulosisin 2018. Procedure: Colonoscopy Indications: Last colonoscopy: March 2017, Abdominal pain in theleft lower quadrant, Abnormal CT of the GI tract, Changein stool caliber Referring MD: Ever Gr M.D. Providers: Rosa Maria Nielsen M.D. Impression: - narrowing in the distal sigmoid colon with sharp angulation and fixation. This likely explain the patient's symptoms. If symptoms continued thenfurther evaluation barium enema and possible surgery can be considered. - Diverticulosis in the entire examined colon. - Internal hemorrhoids. - No specimens collected. Recommendation: - Continue present medications. - Return to GI office if abdominal pain symptoms continued Medicines: Monitored Anesthesia Care Complications: No immediate complications. Estimated Blood Loss: Estimated blood loss: none. Procedure: Pre-Anesthesia Assessment: - Prior to the procedure, a History and Physical was performed, and patient medications and allergieswere reviewed. The patient's tolerance of previous anesthesia was also reviewed. The risks and benefitsof the procedure and the sedation options and riskswere discussed with the patient. All questions were answered, and informed consent was obtained. Prior Anticoagulants: The patient has taken no previous anticoagulant or antiplatelet agents. ASA Grade Assessment: II - A patient with mild systemicdisease. After reviewing the risks and benefits, the patientwas deemed in satisfactory condition to undergo the procedure. The benefits, risks and alternatives of theprocedure and sedation were discussed and informed consent was obtained. All questions were answered. Please referto the signed informed consent document in the medical record. The scope was passed under direct vision.The Pediatric Colonoscope PCF-H190L [id number] was used initially but then replaced with an upper endoscope which was advanced to the hepatic flexure. The colonoscopy was performed without difficulty. The patient tolerated the procedure well. The quality of the bowel preparation was good. Findings: The perianal and digital rectal examinations were normal. There is sharp angulation and narrowing of the distal sigmoid colonat approximately 35 or 40 cm from the anal verge. We tried to pass the pediatric scope through this area but because of the angulation and fixation it was difficult. At this point we pulled out the pediatric scope and used a regular upper endoscopy for the procedure. Multiple small and large-mouthed diverticula were found in the entire colon but seems more prominent and severe and concentrated in thedistal sigmoid colon. No inflammatory changes noted endoscopically. Nopolyps or mass lesions noted.. Internal hemorrhoids were found during retroflexion. The hemorrhoids were small-sized. Electronically signed by Rosa Maria Nielsen M.D. Rosa Maria Nielsen M.D. 03/10/2019 12:31:14 PM Number of Addenda: 0 Note Initiated On: 03/10/2019 11:02 AM Procedure Code(s): --- Professional --- 02930, 52, Colonoscopy, flexible; diagnostic, including collection of specimen(s) by brushing or washing, when performed (separateprocedure) Diagnosis Code(s): --- Professional --- K56.699, Other intestinal obstruction unspecified as to partialversus complete obstruction K64.8, Other hemorrhoids R10.32, Left lower quadrant pain R19.5, Other fecal abnormalities K57.30, Diverticulosis of large intestine without perforation orabscess without bleeding R93.3, Abnormal findings on diagnostic imaging of other parts of digestive tract CPT copyright 2017 [employer] [place] [employer]. All rights reserved. The codes documented in this report are preliminary and upon online producer reviewmay be revised to meet current compliance requirements. Recognized by the [employer] [place] [employer] Gastrointestinal Endoscopy for promoting quality in endoscopy Rosa Maria Nielsen MD ENDOSCOPY PROCEDURES Final Result from Last 3 Months or Most Recently Relevant to Health Maintenance Insurance [facility] PPO MEDICARE 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 Address: [address] [address] [place] [address] AET MEDICARE [facility] H[facility] Address: [address] [address] [place] [address] MEDICARE 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 Address: [address] [address] [place] [address] AET [facility] [employer] [place] HMO/POS Advance Directives For more information, please contact: [phone] Documents on File Type Date Recorded Patient Consulting Project Director Expl anation ADVANCE DIRECTIVE 03/10/2018 6:52 PM * Full Code (Latest Code Status on File) Date Activated Date Inactivated Comments 06/02/2024 5:28 PM 06/03/2024 5:47 PM * Full Code Date Activated Date Inactivated Comments 04/24/2021 9:09 AM 04/27/2021 4:48 PM * Full Code Date Activated Date Inactivated Comments 04/24/2021 12:04 AM 04/24/2021 9:09 AM * Full Code Date Activated Date Inactivated Comments 06/02/2019 4:06 PM 06/05/2019 3:11 AM * Full Code Date Activated Date Inactivated Comments 03/10/2019 10:16 AM 03/10/2019 6:35 PM Care Teams Tire Mold Engraver Relationship Specialty Start Date End Date Ever Gr MD [address] [place] [address] PCP - General Internal Medicine 04/24/18 Jack Washington MD [facility] [facility] [place] [address] Consulting Physician Infectious Diseases 04/26/21 Ever Gaspar MD [facility] [facility] [place] [address] Surgeon General Surgery 04/26/21 Matt Martinez NP [address] [place] [address] [place] [address] Nurse Practitioner Orthopedic Surgery 06/03/24
--- OUTSIDE RECORDS SUMMARY | 2025-01-01 07:12 | XMS_ITS | Encounter Summary ---
Author Organization [facility] Healthcare Address [address] [place] [address] Care Team Providers Care Radio Sales Account Executive Name Role Phone Ever Gr MD Primary Care Provider + Jack Washington MD Unavailable [phone] Ever Gaspar MD Unavailable [phone] Matt Martinez NP Unavailable [phone] Reason for Referral * Cardiology (Routine) - Closed Specialty Diagnoses / Procedures Referred By Ana meraz Referred To Contact Diagnoses Dyspnea, unspecified type Procedures Transthoracic Echo (TTE) Complete W Doppler/[place] [address] [place] [address] Phone: tel: fax: [address] [phone] Referral ID Status Reason Start Date Expiration Date Visits Re quested Visits Authorized [id number] Closed 12/02/2024 01/01/2026 1 1 Reason for Visit * Cardiology (Routine) - Closed Specialty Diagnoses / Procedures Referred By Ana meraz Referred To Contact Diagnoses Dyspnea, unspecified type Procedures Transthoracic Echo (TTE) Complete W Doppler/[place] [address] [place] [address] Phone: tel: fax: [address] [phone] Referral ID Status Reason Start Date Expiration Date Visits Re quested Visits Authorized [id number] Closed 12/02/2024 01/01/2026 1 1 Encounter Details Date Type Department Care Team (Latest Contact Info) Description 12/31/2024 8:28 AM CDT - 12/31/2024 11:59 PM CDT Hospital Encounter [facility] Cardiology [address] [place] [address] Dyspnea, unspecified type Discharge Disposition: Discharge to home or self care Social History Tobacco Use Types Packs/Day Years Used Date Smoking Tobacco: Never Smokeless Tobacco: Never Alcohol Use Standard Drinks/Week Comments Yes 1 [...] on file Legal Sex Male 11:53 PM 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 THERAPY AIDE Gender Identity Not on file Sexual Orientation Not on file documented as of this encounter Medications at Time of Discharge Airsupra 90-80 mcg/actuation HFA aerosol inhaler Inhale 2 puffs every 6 (six) hours as needed 05/01/2024 albuterol 2.5 mg /3 mL (0.083 %) nebulizer solution Take 3 mL (2.5 mg total) by nebulization every 6 (six) hours as needed for wheezing cholecalciferol (VITAMIN D-3) 1,000 unit tablet Take 2 tablets (2,000 Units total) by mouth daily donepeziL (ARICEPT) 10 mg tablet Take 1 tablet (10 mg total) by mouth nightly fluticasone-umecl idin-vilanter (Trelegy Ellipta) 200-62.5-25 mcg inhaler Inhale 1 puff daily lactobacillus combination no.4 (Probiotic) 3 billion cell capsule magnesium oxide (MAG-OX) 400 mg (241.3 mg elemental magnesium) tablet Take 1 tablet (400 mg total) by mouth daily memantine (NAMENDA) 10 mg tablet Take 1 tablet (10 mg total) by mouth 2 (two) times a day multivit-min/foli c/vit K/lycop (MEN'S MULTIVITAMIN ORAL) Take by mouth omega-3 fatty acids 1,000 mg capsule Take 1,000 mg by mouth daily ondansetron (ZOFRAN) 4 mg tablet Every 4-6 hours as needed 30 tablet 1 06/03/2024 oxyCODONE-acetami nophen (PERCOCET) 5-325 mg per tabletIndications :Pain Take 1-2 tablets by mouth every 4 (four) hours as needed for pain 63 tablet 06/03/2024 polyethylene glycol (MIRALAX) 17 gram/dose bulk powder Take 17 g by mouth daily rosuvastatin (CRESTOR) 40 mg tablet Take 1 tablet (40 mg total) by mouth daily senna-docusate (PERICOLACE) 8.6-50 mg 1-2 times daily as needed for constipation 60 tablet 1 06/03/2024 Tezspire 210 mg/1.91 mL (110 mg/mL) pen injector 01/08/2024 traMADoL (ULTRAM) 50 mg tablet Take 1 tablet (50 mg total) by mouth every 6 (six) hours as needed for pain vitamin B complex capsule Take 1 capsule by mouth daily documented as of this encounter Discharge Disposition Disposition Code Departure Means Destination Discharge to home or self care documented in this encounter Plan of Treatment Not on file documented as of this encounter Procedures Procedure Name Priority Date/Time Associated Diagnosis Comments TRANSTHORACIC ECHO (TTE) COMPLETE W DOPPLER/CF WO CONTRAST Routine 12/31/2024 9:39 AM CDT Dyspnea, unspecified type documented in this encounter Results * TRANSTHORACIC ECHO (TTE) COMPLETE W DOPPLER/CF WO CONTRAST (12/31/2024 9:39 AM CDT) LV EF 65 % CONS SCIMAGE Anatomical Region Laterality Modality Ultrasound 12/31/2024 9:04 AM CDT Narrative 12/31/2024 2:24 PM CDT [address] [place] [address] Echocardiogram Report Patient Name: CINTHIA VOSS : [...] Procedure Note Callum Elias MD - 12/31/[address] [place] [address] Echocardiogram Report Patient Name: CINTHIA VOSS : [...] Callum Elias MD 12/31/2024 2:23:23 PM CDT Franklyn Noel MD CV ECHO PROCEDURES Gena l Result documented in this encounter Visit Diagnoses Diagnosis Dyspnea, unspecified type documented in this encounter Care Teams Radio Sales Account Executive Relationship Specialty Start Date End Date Ever Gr MD [address] [place] [address] PCP - General Internal Medicine 04/24/18 Jack Washington MD [facility] [facility] [address] Consulting Physician Infectious Diseases 04/26/21 Ever Gaspar MD [facility] [facility] [place] [address] Surgeon General Surgery 04/26/21 Matt Martinez NP [address] [place] [address] [place] [address] Nurse Practitioner Orthopedic Surgery 06/03/24 documented as of this encounter
--- OUTSIDE RECORDS SUMMARY | 2025-01-01 07:12 | XMS_ITS | Encounter Summary ---
Author Organization [facility] Address [address] [facility] [place] [address] Care Team Providers Care Respite Care Provider Name Role Phone Unavailable Primary Care Provider Unavailabl e Encounter Details Date Type Department Care Team (Late st Contact Info) Description 08/15/2022 Lab Requisition [facility] DermPath Lab [address] [facility] [place] [address] Gary Bergeron MD [facility] [address] Social History Tobacco Use Types [...] Priority Date/Time Associated Diagnosis Comments DERMATOPATHOLOGY Routine 08/14/2022 12:0 0 AM CHRONOMETER ASSEMBLER AND ADJUSTER documented in this encounter Results * DERMATOPATHOLOGY (08/14/2022 12:00 AM CHRONOMETER ASSEMBLER AND ADJUSTER) Case Report Dermatopathology Report Case: [id number] Authorizing Provider: Gary Bergeron MD Collected: 08/14/2022 12:00 AM Ordering Location: [facility] DermPath Lab Received: 08/15/2022 11:05 AM Pathologist: Jazmyne Gutierrez MD Specimen: Skin, upper back 3:24 PM CHRONOMETER ASSEMBLER AND ADJUSTER DERMATOPATHOLOGY LABORATORY Final Diagnosis Specimen A. SKIN, upper back: BASAL CELL CARCINOMA, KERATOTIC TYPE (C44.519) (see microscopic description) 2 3:24 PM [facility] DERMATOPATHOLOGY LABORATORY Clinical History R/O BCC, Sup 2 3:24 PM [facility] DERMATOPATHOLOGY LABORATORY Gross Description Specimen A: Received is one formalin filled container labeled with the patient's name and designated upper back. The specimen consists of a shave biopsy measuring 6x4x1 mm. Jar 0. 2 3:24 PM [facility] DERMATOPATHOLOGY LABORATORY Microscopic Description Specimen A. SKIN, upper back: The dermis is infiltrated by nests of basaloid cells that show peripheral palisading and are associated with fibromyxoid stroma. Both mitotic figures and necrotic cells are identified. There are also areas with squamous differentiation and keratinization within the nests. Additional deeper sections were obtained and reviewed. 3:24 PM [facility] DERMATOPATHOLOGY LABORATORY Disclaimer An external and internal positive and negative controls are appropriate for the histochemical, immunohistochemical and immunofluorescence stain(s) in this case (if any), except where stated explicitly. The performance characteristics of the stain(s) cited in this report were developed and its performance characteristic determined by the Dermatopathology Laboratory at [facility], directed by Dr. Shu Jimenez. These tests need not be, and therefore are not, approved by the [place] Food and Drug Administration. The tests are used for clinical purposes. Billing Codes Specimen Charges Stain Charges 87622 1 2 3:24 PM [facility] DERMATOPATHOLOGY LABORATORY Embedded Images 2 3:24 PM [facility] DERMATOPATHOLOGY LABORATORY Pathology/Cytolog y TISSUE SPECIMEN FROM SKIN / Unknown 08/14/2022 08/15/2022 11:05 AM CHRONOMETER ASSEMBLER AND ADJUSTER us Gary Bergeron MD LAB - PATHOLOGY/CYTOLOGY ORDERAB LES Final Result DERMATOPATHOLOGY LABORATORY [facility] - Department of Dermatology [address] [place] [address], [facility] [phone] documented in this encounter Visit Diagnoses Not on filedocumented in this encounter
--- OUTSIDE RECORDS SUMMARY | 2025-01-01 07:12 | XMS_ITS | Encounter Summary ---
Author Organization [facility] Address [address] [place] [address] Care Team Providers Care Mat Cutter Name Role Phone Unavailable Primary Care Provider Unavailabl e Encounter Details Date Type Department Care Team (Latest Contact Info) Description 02/11/2002 Outpatient Historical [facility] Geoff Landaverde MD [address] [place] [address] LUMBAR DISC DISPLACEMENT (Primary Dx) Social History Tobacco Use Types Packs/Day Years Used Date Smoking Tobacco: Never Assessed Sex and Gender Information Value Date Recorded Sex Assigned at Not on file Legal Sex Male 3:42 AM HEALTHCARE NETWORK CONSULTANT Gender Identity Not on file Sexual Orientation Not on file documented as of this encounter Plan of Treatment Not on file documented as of this encounter Visit Diagnoses Diagnosis Displacement of lumbar intervertebral disc without myelopathy- Primary documented in this encounter
--- OUTSIDE RECORDS SUMMARY | 2025-01-01 07:12 | XMS_ITS ---
Author Organization [facility] Address [address] [place] [address] Care Team Providers Care Architectural Coating Finisher Name Role Phone Ever Gr MD Primary Care Provider + Jack Washington MD Unavailable [phone] Ever Gaspar MD Unavailable + [phone] Matt Martinez NP Unavailable [phone] Active Problems Problem Noted Date Diagnosed Date S/P TKR (total knee replacement), right 06/02/20 Primary osteoarthritis of right knee 05/14/2024 Arthritis [...] (08/08/2022): Added automatically from request for surgery [id number] Kidney stone 08/08/2022 Overview (08/08/2022): Added automatically from request for surgery [id number] High cholesterol 07/27/2022 Other chest pain 04/03/2022 [...] (05/14/2019): Added automatically from request for surgery [id number] Abnormal CT scan 02/16/2019 Overview (02/16/2019): Added automatically from request for surgery [id number] Abnormal feces 02/16/2019 Overview (02/16/2019): Added automatically from request for surgery [id number] Chronic pain of left knee 08/27/2018 Arthritis of left knee 08/27/2018 Acute medial meniscus tear of left knee 08/27/20 18 Preoperative evaluation to r ule out surgical contraindication 06/11/2018 Assessment & Plan (04/28/2024 9:03 AM CDT): The patient is cleared for the proposed total knee replacement. Rotator cuff arthropathy of left shoulder 2017 Overview (05/27/2018): Added automatically from request for surgery [id number] Bicipital tendinitis, left 05/27/2018 Overview (05/27/2018): Added automatically from request for surgery [id number] Localized osteoarthritis of left shoulder 2017 Obstructive sleep apnea syndrome 03/21/2018 Myalgia 02/10/2018 Rotator cuff arthropathy, left 11/21/2017 Overview (11/21/2017): Added automatically from request for surgery [id number] Left bicipital tenosynovitis 11/21/2017 Overview (11/21/2017): Added automatically from request for surgery [id number] Cervicalgia 10/15/2017 Cervical radiculopathy 10/15/2017 Spondylosis of [...] Insomnia 01/23/2014 Overview (12/14/2016): INSOMNIA NEC Dyspnea Current Treatment and Therapy Plans No current plan information found. Past Treatment and Therapy Plans No past plan information found. Lifetime Dose Tracking * Chemical Lifetime Dose Automatic Entry Manual Entr y Fluoro Time 0.5 minutes 0.5 minutes 0 minutes Air kerma at the reference point (Ka,r) 5.8 mGy 5 .8 mGy 0 mGy Resolved Problems Problem Noted Date Diagnosed Date Resolved Date Diverticulitis 05/24/2021 07/18/2021 Overview (05/24/2021): Added automatically from request for surgery [id number] Assessment & Plan (06/16/2021 6:28 AM CDT): [...]
--- OUTSIDE RECORDS SUMMARY | 2025-01-01 07:12 | XMS_ITS | Clinical Summary ---
Author Organization [facility] Address [address] [place] [place] [address] Care Team Providers Care Qa Test Analyst Name Role Phone Unavailable Primary Care Provider Unavailabl e Source Comments [facility],non-owned Affiliates and Associated Physician Practices is amultiple site organization consisting of ambulatory clinics and hospital sitesin [place], [place], [place] and [place]. This disclosure is being madepursuant to the Care Everywhere program and may not contain all information available regarding this patient. Last updated 18.[facility] Allergies Active Allergy Reactions Criticality Noted Date Comments Naproxen Penicillins Urticaria Medium 07/12/2017 Medications * Be aware that medications may not be up to date on this document. Alwaysverify current medications with the patient. donepezil (ARICEPT) 10 MG tablet Take 10 mg by mouth at bedtime Active Memantine HCl (NAMENDA PO) Active Celecoxib (CELEBREX PO) Active Multiple Vitamins-Minera ls (MULTIVITAMIN ADULT PO) Active Cholecalciferol (VITAMIN D-3 PO) Active [place]-3 Fatty Acids (FISH OIL) 500 MG capsule Take by mouth 2 times daily Active rosuvastatin (CRESTOR) 40 MG tablet Take 40 mg by mouth once daily Active Encounters Date Type Department Care Team Description 12/31/2024 Lab Requisition [facility] Derm[facility] Lab [address] [place] [address] Gary Bergeron MD from Last 3 Months Social History Tobacco Use Types Packs/Day Years Used Date Smoking Tobacco: Never Smokeless Tobacco: Never Sex and Gender Information Value Date Recorded Sex Assigned at Not on file Legal Sex Male 7:37 AM CDT Gender Identity Not on file Sexual Orientation Not on file Last Filed Vital Signs Vital Sign Reading Time Taken Comments Blood Pressure 124/82 01/27/2018 8:14 AM CDT Pulse 65 01/27/2018 8:14 AM CDT Temperature 36.8 C (98.3 F) 01/27/2018 8:14 AM CDT Respiratory Rate - - Oxygen Saturation 94% 08/15/2017 8:45 AM ENGINEERING LECTURER Inhaled Oxygen Concentration - - Weight 97.5 kg (215 lb) 01/27/2018 8:14 AM CDT Height 177.8 cm (5' 10 ) 01/27/2018 8:14 AM CDT Body Mass Index 30.85 01/27/2018 8:14 AM CDT Plan of Treatment Health Maintenance Due Date Last Done Comments COLOGUARD (AGES 45-75) - COL ON CA SCREENING 1950 COLON MONITORING 1950 COLONOSCOPY - COLON CA SCREENING 1950 CT COLONOGRAPHY - COLON CA SCREENING 1950 Colorectal Cancer Screening 1950 FIT - COLON CA SCREENING 1950 FLEX SIG - COLON CA SCREENING 1950 HEPATITIS C SCREENING 09/15/1968 DTAP/TDAP/TD VACCINES (1 - Tdap) 1969 PNEUMOCOCCAL VACCINE 50+ (1 of 1 - PCV) 2000 ZOSTER VACCINE (1 of 2) 2000 COVID-19 VACCINE (3 - 2023-2 5 season) 2024 11/30/2020, 11/02/2020 DEPRESSION SCREENING 09/09/2024 INFLUENZA VACCINE (Season Ended) 2025 06/09/2021, 09/09/2013 Respiratory Syncytial Virus (RSV) Vaccine Pt: or over 60 yrs (1 - 1-dose 75+ series) 2025 HEPATITIS B VACCINE Aged Out No longe r eligible based on patient's age to complete this topic HIB VACCINE Aged Out No longer eligi ble based on patient's age to complete this topic HPV VACCINE Aged Out No longer eligi ble based on patient's age to complete this topic MENINGOCOCCAL (Group B) VACCINE SHARED DECISION-MAKING Aged Out No longer eligible based on patient's age to complete this topic MENINGOCOCCAL GROUPS A/C/Y/W VACCINE Aged Out No longer eligible b ased on patient's age to complete this topic Insurance [facility] Address: [address] [place] [address] AETNA AETNA
--- OUTSIDE RECORDS SUMMARY | 2025-01-01 07:12 | XMS_ITS | Encounter Summary ---
Author Organization [facility] Address [address] [place] [address] Care Team Providers Care Adjunct Instructor Of Women'S Studies Name Role Phone Unavailable Primary Care Provider Unavailabl e Encounter Details Date Type Department Care Team (Late st Contact Info) Description 12/31/2024 Lab Requisition [facility] [address], [place] [address] Gary Bergeron MD [address] [address] Social History Tobacco Use Types Packs/Day Years Used Date Smoking Tobacco: Never Smokeless Tobacco: Never Sex and Gender Information Value Date Recorded Sex Assigned at Not on file Legal Sex Male 7:37 AM CDT Gender Identity Not on file Sexual Orientation Not on file documented as of this encounter Plan of Treatment Pending Results Name Type Priority Associated Diagnoses Date /Time DERMATOPATHOLOGY Pathology Cytology Routine 12/30/2024 12:00 AM CDT documented as of this encounter Visit Diagnoses Not on filedocumented in this encounter
--- OUTSIDE RECORDS SUMMARY | 2025-01-01 07:12 | XMS_ITS | Clinical Summary ---
Author Organization [facility] Address [address], [address] [address] Phone Care Team Providers Care Fence Erector Supervisor Name Role Phone Thaddeus Cedeno MD Unavailable [phone] Nataliya Adhikari DPM Unavailable [phone] MD Primary Care Provider [phone] Allergies Active Allergy Reactions Criticality Noted Date Comments Phenytoin Unknown 01/21/2019 Penicillins Unknown Medications Fluticasone Propionate (FLONASE NA) by Nasal route. A ctive pravastatin (PRAVACHOL) 80 MG Tablet Take 80 mg by mouth daily. 1 6 Active cyclobenzaprine (FLEXERIL) 10 MG Tablet Take 10 mg by mouth daily. 0 6 Active glycopyrrolate (ROBINUL) 2 MG Tablet TAKE 1 TABLET BY MOUTH TWICE DAILY 60 Tab 3 6 Active Additional Information Patient not taking.Reported on 01/21/2019 albuterol (VENTOLIN HFA) 108 (90 Base) MCG/ACT Aerosol Solution take 2 Puffs by inhalation. 7 Active alfuzosin (UROXATRAL) 10 MG TABLET SR 24 HR Take 10 mg by mouth. 8 Active aspirin EC 325 MG Tablet Delayed Response Take 325 mg by mouth. 8 Active azelastine (ASTELIN) 0.1 % Solution U 1 TO 2 SPRAYS IEN BID 8 Active budesonide-formo terol fumarate (SYMBICORT) 160-4.5 MCG/ACT Aerosol INL 2 PFS PO BID 8 Active celecoxib (CELEBREX) 200 MG Capsule TK 1 C PO D 8 Active Cholecalciferol (VITAMIN D3) 1000 units Capsule Take by mouth. Activ e cholecalciferol (VITAMIN D-[address]) 1000 UNIT Tablet Take 1,000 Units by mouth. Active Clindamycin HCl 300 MG Capsule TK 2 CS PO ONE HOUR PRIOR TO DENTAL APPOINTMENT 8 Active donepezil (ARICEPT) 10 MG Tablet TK 1 T PO HS 3 9 Active econazole nitrate 1 % Cream GERALD EXT TO THE AFFECTED AND SURROUNDING AREAS BID 2 9 Active fluticasone-carson nterol (BREO ELLIPTA) 200-25 MCG/INH AEROSOL POWDER, BREATH ACTIVATED INHALE ONE PUFF PO D 8 Active HYDROcodone-acet aminophen (NORCO) 5-325 MG Tablet Take 1-2 Tabs by mouth. 8 Active Lactobacillus Acid-Pectin (ACIDOPHILUS-PEC TIN) Capsule Take 1 Cap by mouth. Active LUTEIN PO [The details of the medication are not available because there are pending changes by a home health clinician.] 8 Active Magnesium Oxide 400 MG Capsule Take 1 Cap by mouth. Active memantine (NAMENDA) 10 MG Tablet Take 10 mg by mouth. 7 Active metroNIDAZOLE (FLAGYL) 500 MG Tablet 9 Active Mirabegron ER (MYRBETRIQ) 25 MG TABLET SR 24 HR Take 25 mg by mouth. Active Vitamins/Mineral s Tablet Take by mouth. Activ e Bessemer-3 Fatty Acids (FISH OIL) 500 MG Capsule Take by mouth. Active ondansetron (ZOFRAN-ODT) 4 MG TABLET DISPERSIBLE Take 4 mg by mouth. 8 Active oxyCODONE-acetam inophen (PERCOCET) 5-325 MG Tablet TK 1 T PO Q 4 TO 6 H PRN 9 Active predniSONE (DELTASONE) 20 MG Tablet 1 9 Active rosuvastatin (CRESTOR) 40 MG Tablet TK 1 T PO D 7 Active senna-docusate (SENOKOT S) 8.6-50 MG Tablet Take 1-2 Tabs by mouth. 8 Active Tadalafil (CIALIS) 5 MG Tablet Take 5 mg by mouth. 7 Active tamsulosin (FLOMAX) 0.4 MG Capsule TK 1 C PO QD 8 Active traMADol (ULTRAM) 50 MG Tablet Take 50-100 mg by mouth. 8 Active umeclidinium (INCRUSE ELLIPTA) 62.5 MCG/INH AEROSOL POWDER, BREATH ACTIVATED INL 1 PUFF PO QD 8 Active Active Problems Problem Noted Date Diagnosed Date Rhinitis High cholesterol Arthritis Immunizations Immunization Administration Dates Next Due Covid-19, Mrna, Lnp-s, Pf, 30 Mcg/0.3 Ml Dose (P fizer) 11/30/2020,11/02/2020 Influenza Vaccine greater than 3 yrs 09/09/2013 TD VACCINE 08/09/2014 Zoster Vaccine, live 09/09/2011 Family History Relation Name Status Comments Father Mother Social History Tobacco Use Types Packs/Day Years Used Date Smoking Tobacco: Never Smokeless Tobacco: Never Alcohol Use Standard Drinks/Week Comments Yes 0 (1 standard drink = 0.6 oz pur e alcohol) Sex and Gender Information Value Date Recorded Sex Assigned at Not on file Legal Sex Male 9:07 PM CDT Gender Identity Not on file Sexual Orientation Not on file Last Filed Vital Signs Vital Sign Reading Time Taken Comments Blood Pressure 120/70 07/24/2022 11:20 AM 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 Pulse 78 07/24/2022 11:20 AM VOCATIONAL 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 COUNSELOR Temperature 36.8 C (98.3 F) 01/21/2019 8:42 AM CDT Respiratory Rate 18 07/24/2022 11:20 AM VOCATIONAL 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 COUNSELOR Oxygen Saturation 98% 07/24/2022 11:20 AM VOCATIONAL 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 COUNSELOR Inhaled Oxygen Concentration - - Weight 102.5 kg (226 lb) 07/24/2022 11:20 AM VOCATIONAL 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 COUNSELOR Height 177.8 cm (5' 10 ) 07/24/2022 11:20 AM VOCATIONAL 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 COUNSELOR Body Mass Index 32.43 07/24/2022 11:20 AM VOCATIONAL 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 COUNSELOR Plan of Treatment Health Maintenance Due Date Last Done Comments Hepatitis C Virus (HCV) Screening 1950 Cologuard 2000 Immunochemical Fecal Occult Blood 2000 Pneumococcal Immunization (50+ years) (2 of 2 - PCV) 10/22/2019 10/22/2018 Colonoscopy 11/21/2021 11/22/2011 Colorectal Cancer Screening 11/21/2021 SARS-COV-2 Immunization ( season) 2024 06/09/2022, 12/18/2021, 07/04/2021, Additional history exists Influenza Immunization (Season Ended) 2025 06/21/2022, 06/09/2021, 06/02/2021, Additional history exists Respiratory Syncytial Virus (RSV) Immunization (Adult) (1 - 1-dose 75+ series) 2025 11/22/2011 Pneumococcal Immunization Combined Discontinued 10/22/2018 DTaP/Tdap/Td Immunization Discontinued 2019, 08/09/2014, 10/09/2007 TdaP Immunization Completed 04/13/2020, 10/09/2007 Zoster Immunization Completed 03/14/2021, 01/10/2021, 09/09/2011 Hepatitis B Immunization Aged Out No longer eligible based on patient's age to complete this topic Meningococcal Immunization (ACWY) Aged Out No longer eligible based on patient's age to complete this topic Rotavirus Immunization Aged Out No lo nger eligible based on patient's age to complete this topic Procedures Procedure Name Priority Date/Time Associated Diagnosis Comments COLONOSCOPY Routine 11/22/2011 from Last 3 Months or Most Recently Relevant to Health Maintenance Results * COLONOSCOPY (11/22/2011) Osvaldo Collier MD PROCEDURE/MINOR SURGICAL ORDERABLES Final Result from Last 3 Months or Most Recently Relevant to Health Maintenance Insurance [facility] MED[employer] Care Teams Fence Erector Supervisor Relationship Specialty Start Date End Date Ever Gr MD [address] [address] PCP - General Internal Medicine 03/05/23 Thaddeus Cedeno MD General Surgery 04/05/16 Nataliya Adhikari DPM Consulting Physician Podiatry 07/24/22
--- OUTSIDE RECORDS SUMMARY | 2025-01-01 07:12 | XMS_ITS | Data Portability ---
Author Organization [facility], Main Office Address [address] [facility] [address] [place] [address] Assessment No assessment recorded. Plan of Treatment Reminders Order Date Submit Date Provider Last Modified By Organization Details Last Modified Time Details Appointments None record ed. Lab None record ed. Referral None record ed. Procedures None record ed. Surgeries None record ed. Imaging None record ed. Medication Orders None record ed. Patient TargetsNo targets recorded. Patient InstructionsNo instructions recorded. Reason for Referral None Reported. 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 Gary Bergeron MD [address] [facility] [address] [place], [address], [facility] 2 10:24:17 Verruca vulgaris 15377364 Active 2021 Gary Bergeron MD [address] [facility] [address], [place], [address], [facility] 2 10:24:22 Chronic effect of ultraviolet radiation on normal skin 915448019 Active 2021 Gary Bergeron MD [address] [facility] [address] [place], [address], [facility] 2 10:26:36 Basal cell carcinoma of back 650904933 Active 2022 Gary Bergeron MD [address] [facility] [address], [place], [address], [facility] 3 10:22:26 Inflamed seborrheic keratosis 114784700 Active 2022 Gary Bergeron MD [address] [place], [address], [facility] 3 11:04:35 Benign lymphocytic infiltration of [place] 82629454 Active 2024 Gary Bergeron MD [address] [facility] [address], [place], [address], [facility] 5 17:19:28 Seborrheic keratosis 274493108 Active 2020 Gary Bergeron MD [address] [facility] [address], [place], [address], [facility] 1 11:08:09 Senile angioma 3246561 Active 2020 Gary Bergeron MD [address] [facility] [address], [place], [address], [facility] 1 11:08:11 History of malignant basal cell neoplasm of skin 463995939 Active 2020 Gary Bergeron MD [address] [facility] [address], [place], [address], [facility] 1 11:08:12 Problem Notes None recorded. Procedures Surgical History Date Name Laterality Status Provider Name and Address Organization Details Recorded Time 07/23/2018 Shave Biopsy active Gary gorman MD [address] [facility] [address] [place], [address], [facility] 07/23/2018 09:42:01 Imaging Results None recorded. Procedure Notes None recorded. Medical Equipment None Reported. Allergies Allergen ID Allergen Name Allergen Category Reaction Reaction Severity Criticality Documentation Date Start Date Code Code System Note Provider Name and Address Organization Details Recorded Time 723 Product containin g penicilli n (product) medicatio n Not available Not available Not available 05/14/2018 [id number] [facility] Medications Name Sig Start Date Stop Date Status Note LastModified by Organization Details LastModified Time celecoxib 200 mg capsule TAKE 1 CAPSULE BY MOUTH DAILY active Not Available Not Available No t Available cyclobenzap rine 10 mg tablet 05/18 completed Not Available Not Available Not Available methocarbam ol 500 mg tablet TAKE 2 TABLETS BY MOUTH THREE TIMES DAILY active Not Available Not Available No t Available clotrimazol e 10 mg laxmi 05/18 completed Not Available Not Available Not Available nystatin 100,000 unit/mL oral suspension 05/18 completed Not Available Not Available Not Available prednisone 10 mg tablet TAKE 4 TABLETS BY MOUTH DAILY FOR 4 DAYS THEN TAKE 2 TABLETS BY MOUTH DAILY FOR 4 DAYS THEN TAKE 1 TABLET BY MOUTH DAILY active Not Available Not Available No t Available doxycycline hyclate 100 mg capsule TAKE 1 CAPSULE BY MOUTH TWICE DAILY active Not Available Not Available No t Available clindamycin HCl 300 mg capsule TAKE 2 CAPSULES BY MOUTH 1 HOUR BEFORE DENTAL APPOINTME NT active Not Available Not Available No t Available albuterol sulfate 2.5 mg/3 mL (0.083 %) solution for nebulizatio n USE 1 VIAL VIA NEBULIZER EVERY 4 TO 6 HOURS active Not Available Not Available No t Available cetirizine 10 mg tablet TAKE 1 TABLET BY MOUTH ONCE A DAY active Not Available Not Available No t Available oxybutynin chloride ER 10 mg tablet,exte nded release 24 hr 05/18 completed Not Available Not Available Not Available benzonatate 200 mg capsule 05/18 completed Not Available Not Available Not Available hydrocodone 5 mg-acetamin ophen 325 mg tablet TAKE 1 TABLET BY MOUTH THREE TIMES DAILY active Not Available Not Available No t Available donepezil 10 mg tablet TAKE 1 TABLET BY MOUTH DAILY AT BEDTIME active Not Available Not Available No t Available meloxicam 15 mg tablet active Not Available Not Available Not Available phenazopyri dine 200 mg tablet active Not Available Not Available Not Available ondansetron HCl 4 mg tablet TAKE 1 TABLET BY MOUTH EVERY 4-6 HOURS NEEDED active Not Available Not Available No t Available prednisone 20 mg tablet TAKE 2 TABLETS BY MOUTH EVERY DAY FOR 5 DAYS AND THEN 1 TABLET BY MOUTH EVERY DAY FOR 5 DAYS active Not Available Not Available No t Available clobetasol 0.05 % topical cream APPLY A THIN LAYER TOPICALLY TO THE AFFECTED AREA TWICE DAILY active Not Available Not Available No t Available metronidazo le 500 mg tablet active Not Available Not Available Not Available ciprofloxac in 500 mg tablet active Not Available Not Available Not Available sulfamethox azole 800 mg-trimetho prim 160 mg tablet TAKE 2 TABLETS BY MOUTH THREE TIMES DAILY active Not Available Not Available No t Available doxycycline monohydrate 100 mg tablet TK 1 T PO BID FOR 7 DAYS active Not Available Not Available No t Available tramadol 50 mg tablet TAKE 1 TABLET BY MOUTH EVERY 6 HOURS active Not Available Not Available No t Available oxycodone-a cetaminophe n 5 mg-325 mg tablet TAKE 1 TO 2 TABLETS BY MOUTH EVERY 4 HOURS NEEDED FOR PAIN active Not Available Not Available No t Available aspirin 325 mg tablet,almaz yed release 05/18 completed Not Available Not Available Not Available tamsulosin 0.4 mg capsule TAKE 1 CAPSULE BY MOUTH ONCE DAILY active Not Available Not Available No t Available doxycycline monohydrate 100 mg capsule TAKE 1 CAPSULE BY MOUTH TWICE DAILY DIRECTED active Not Available Not Available No t Available econazole nitrate 1 % topical cream APPLY TO THE AFFECTED AND SURROUNDI NG AREAS OF SKIN BY TOPICAL ROUTE 2 TIMES PER DAY 05/18 completed Not Available Not Available Not Available erythromyci n 5 mg/gram (0.5 %) eye ointment APPLY 1/2 INCH TO RIGHT UPPER EYE LID THREE TIMES DAILY FOR 5 DAYS active Not Available Not Available No t Available gabapentin 300 mg capsule TAKE 1 CAPSULE BY MOUTH EVERY NIGHT active Not Available Not Available No t Available aspirin 81 mg chewable tablet active Not Available Not Available Not Available diclofenac sodium 75 mg tablet,almaz yed release TAKE 1 TABLET BY MOUTH TWICE DAILY active Not Available Not Available No t Available mupirocin 2 % topical ointment APPLY TOPICALLY THREE TIMES DAILY active Not Available Not Available No t Available azelastine 137 mcg (0.1 %) nasal spray USE 1 TO 2 SPRAYS IN EACH NOSTRIL TWICE DAILY NEEDED active Not Available Not Available No t Available epinephrine 0.3 mg/0.3 mL injection, auto-inject or INJECT DIRECTED active Not Available Not Available No t Available methylpredn isolone 4 mg tablets in a dose pack FOLLOW PACKAGE DIRECTION S active Not Available Not Available No t Available albuterol sulfate HFA 90 mcg/actuati on aerosol inhaler INHALE 2 PUFFS BY MOUTH EVERY 4 TO 6 HOURS NEEDED active Not Available Not Available No t Available celecoxib 100 mg capsule TAKE 1 CAPSULE BY MOUTH DAILY active Not Available Not Available No t Available ketoconazol e 2 % topical cream APPLY TO AFFECTED FOOT DAILY active Not Available Not Available No t Available oxybutynin chloride 5 mg tablet active Not Available Not Available No t Available ondansetron 4 mg disintegrat ing tablet 05/18 completed Not Available Not Available Not Available fluticasone propionate 50 mcg/actuati on nasal spray,suspe nsion SHAKE LIQUID AND USE 1 TO 2 SPRAYS IN EACH NOSTRIL EVERY DAY active Not Available Not Available No t Available clotrimazol e 1 % topical cream APPLY TO THE AFFECTED AND SURROUNDI NG AREAS OF SKIN BY TOPICAL ROUTE 2 TIMES PER DAY IN THE MORNING AND EVENING active Not Available Not Available No t Available doxycycline hyclate 100 mg tablet TAKE 1 TABLET BY MOUTH TWICE DAILY active Not Available Not Available No t Available Hibiclens 4 % topical liquid USE DIRECTED TO SCRUB ENTIRE BODY WEEKLY HEAD TO TOE active Not Available Not Available No t Available metaxalone 800 mg tablet TAKE 1 TABLET BY MOUTH THREE TIMES DAILY FOR 7 DAYS active Not Available Not Available No t Available rosuvastati n 40 mg tablet TAKE 1 TABLET BY MOUTH EVERY DAY active Not Available Not Available No t Available alfuzosin ER 10 mg tablet,exte nded release 24 hr active Not Available Not Available Not Available tadalafil 5 mg tablet TAKE 1/2 (ONE-HALF ) TABLET BY MOUTH ONCE DAILY active Not Available Not Available No t Available tadalafil 10 mg tablet TAKE 1/2 TABLET BY MOUTH 1 TIME FOR SEXUAL ACTIVITY. MAY INCREASE TO 1 TABLET IF NOT EFFECTIVE . EFFECTS. MAY LAST 36 HO active Not Available Not Available No t Available memantine 10 mg tablet TAKE 1 TABLET BY MOUTH TWICE DAILY active Not Available Not Available No t Available Symbicort 160 mcg-4.5 mcg/actuati on HFA aerosol inhaler active Not Available Not Available Not Available FeroSul 325 mg (65 mg iron) tablet TAKE 1 TABLET BY MOUTH DAILY WITH BREAKFAST active Not Available Not Available No t Available lubiproston e 8 mcg capsule active Not Available Not Available Not Available Voltaren 1 % topical gel active Not Available Not Available Not Available Probiotic active Not Available Not Marylin ilable Not Available Allergy Relief (fexofenadi ne) 180 mg tablet TAKE 1 TABLET BY MOUTH EVERY DAY active Not Available Not Available No t Available azelastine 137 mcg-flutica sone 50 mcg/spray nasal spray SHAKE LIQUID AND USE 1 TO 2 SPRAYS IN EACH NOSTRIL TWICE DAILY active Not Available Not Available No t Available Stimulant Laxative Plus 8.6 mg-50 mg tablet TAKE 1 TABLET BY MOUTH 1-2 TIMES DAILY NEEDED FOR CONSTIPAT ION active Not Available Not Available No t Available Incruse Ellipta 62.5 mcg/actuati on powder for inhalation 05/18 completed Not Available Not Available Not Available Breo Ellipta 200 mcg-25 mcg/dose powder for inhalation INHALE ONE PUFF BY MOUTH DAILY active Not Available Not Available No t Available Spiriva Respimat 1.25 mcg/actuati on solution for inhalation INHALE 2 PUFFS BY MOUTH DAILY active Not Available Not Available No t Available Linzess 72 mcg capsule active Not Available Not Available Not Available Fasenra 30 mg/mL subcutaneou s syringe active Not Available Not Available No t Available Dupixent 300 mg/2 mL subcutaneou s pen injector active Not Available Not Available Not Available Trelegy Ellipta 200 mcg-62.5 mcg-25 mcg powder for inhalation INHALE 1 PUFF BY MOUTH DAILY active Not Available Not Available No t Available Paxlovid 150 mg-100 mg tablets in a dose pack (Moderate Renal Dose) FOLLOW PACKAGE DIRECTION S FOR 5 DAYS active Not Available Not Available No t Available Tezspire 210 mg/1.91 mL (110 mg/mL) subcutaneou s pen injector active Not Available Not Available Not Available Airsupra 90 mcg-80 mcg/actuati on HFA aerosol inhaler INHALE 2 PUFFS BY MOUTH EVERY 6 HOURS NEEDED active Not Available Not Available No t Available Vitals None Recorded Social History None recorded. Functional Status None recorded. Mental Status None recorded. Family History Nothing Reported. Medical History No medical history recorded. Past Encounters Encounter ID Performer Location Encounter Start Date Encounter Closed Date Diagnosis/Indication Diagnosis SNOMED-CT Code Diagnosis ICD10 Code Diagnosis Note [id number] Gary Bergeron MD Main Office [address] [facility] [address] [place] [phone] 10/10/2022 09:55:15 10/10/2022 10:36:19 Basal cell carcinoma of back 254623860 C44.519 Health Concerns Section Related Observation LastModified by Organization Detai ls LastModified Time None Recorded Concern Status LastModified by Organization Details LastModified Time None Recorded Advance Directives Directive None Recorded Payers None recorded.
--- OUTSIDE RECORDS SUMMARY | 2025-01-01 07:13 | XMS_ITS | Clinical Summary ---
Author Organization [facility] Address [address] 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
--- OUTSIDE RECORDS SUMMARY | 2025-01-01 07:13 | XMS_ITS | Clinical Summary ---
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 Name Role Phone Ever Gr MD Primary Care Provider + Jack Washington MD Unavailable [phone] Ever Gaspar MD Unavailable [phone] Matt Martinez NP Unavailable [phone] Allergies Active Allergy Reactions Criticality Noted Date [...] (08/08/2022): Added automatically from request for surgery [id number] Kidney stone 08/08/2022 Overview (08/08/2022): Added automatically from request for surgery [id number] High cholesterol 07/27/2022 Other chest pain 04/03/2022 [...] 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 06/23/2019 Primary osteoarthritis of left knee 05/14/2019 Overview (05/14/2019): Added automatically from request for surgery [id number] Abnormal CT scan 02/16/2019 Overview (02/16/2019): Added automatically from request for surgery [id number] Abnormal feces 02/16/2019 Overview (02/16/2019): Added automatically from request for surgery [id number] Chronic pain of left knee 08/27/2018 Arthritis of left knee 08/27/2018 Acute medial meniscus tear of left knee 08/27/20 18 Preoperative evaluation to blayne nicholsone out surgical contraindication 06/11/2018 Assessment & Plan (04/28/2024 9:03 AM CDT): The patient is cleared for the proposed total knee replacement. Rotator cuff arthropathy of left shoulder 2017 Overview (05/27/2018): Added automatically from request for surgery [id number] Bicipital tendinitis, left 05/27/2018 Overview (05/27/2018): Added automatically from request for surgery [id number] Localized osteoarthritis of left shoulder 2017 Obstructive sleep apnea syndrome 03/21/2018 Myalgia 02/10/2018 Rotator cuff arthropathy, left 11/21/2017 Overview (11/21/2017): Added automatically from request for surgery [id number] Left bicipital tenosynovitis 11/21/2017 Overview (11/21/2017): Added automatically from request for surgery [id number] Cervicalgia 10/15/2017 Cervical radiculopathy 10/15/2017 Spondylosis of [...] (05/24/2021): Added automatically from request for surgery [id number] Assessment & Plan (06/16/2021 6:28 AM CDT): [...] after surgery to which the patient agrees. Encounters Date Type Department Care Team Description 12/31/2024 8:28 AM CDT - 12/31/2024 11:59 PM CDT Hospital Encounter [facility] Cardiology [address] [place] [address] Dyspnea, unspecified type Discharge Disposition: Discharge to home or self care 12/22/2024 8:25 AM CDT [address] [address] 12/17/2024 9:25 AM CDT [address] [address] 12/12/2024 8:10 AM CDT [address] [address] 12/11/2024 10:50 AM CDT [address] [address] 12/08/2024 Orders Only [facility] PA [address] [address] Gary Bergeron MD 12/07/2024 8:10 PM CDT - 12/07/2024 10:41 PM CDT Emergency [facility] Emergency Department [address] [place] [id number] Rash (Primary Dx) Discharge Disposition: Discharge to home or self care 10/28/2024 9:00 AM 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 - 10/28/2024 11:59 PM 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 Hospital Encounter [facility] [address] [place] [address] Kaleb Noel MD Dyspnea, unspecified type Discharge Disposition: Discharge to home or self care from Last 3 Months Immunizations Immunization Administration Dates Next Due Influenza, Unspecified 06/09/2021 Tdap 04/13/2020,10/09/2007 Surgical History Surgery Date Site/Laterality Comments OTHER SURGICAL HISTORY lt inguinal hernia repair TONSILLECTOMY Tonsillectomy OTHER SURGICAL HISTORY 09/09/2001 - 09/08/2002 surg. lt. shoulder HERNIA REPAIR 09/09/1964 - 09/08/1965 Herniorrhaphy COLONOSCOPY 03/09/2017 - 04/08/2017 JOINT REPLACEMENT LTKA, Bilateral reverse shoulder COLECTOMY 06/16/2021 XI SIGMOID COLECTOMY lAPROSCOPIC ASSISTED ROTATOR CUFF REPAIR Left OTHER SURGICAL HISTORY 09/13/2022 cystoscopy, bilateral retrograde pyelogram, bilateral ureteroscopy, right laser lithotripsy, bilateral stone extraction, bilateral ureteral stent placement Medical History Medical History Date Comments Diverticulosis Sleep apnea CPAP, it works for me ; 05/14/18 last sleep study Osteoarthritis Sleep apnea, obstructive Peripheral neuropathy Colon polyp Asthma Lung disease copd Nephrolithiasis 08/08/2022 Motion sickness Hyperlipidemia COPD (chronic obstructive pu lmonary disease) (HCC) SOBOE (shortness of breath on exertion) COPD Basal cell carcinoma on back Arthritis 01/10/2024 Rhinitis 01/10/2024 Family History Medical History Relation Name Comments Hypertension Brother 2 Hypertension; Other Brother 3 skydiving accid ent; Cause of : skydiving accident Alcohol abuse Father Cirrhosis Father Cirrhosis; Caus e of : Cirrhosis Other Mother Yas Gehrig dise ase; Cause of : Yas Gehrig disease Relation Name Status Comments Brother 1 Brother 2 Brother 3 Father (Age 46) Mother (Age 64) Social History Tobacco Use Types Packs/Day Years [...] on file Legal Sex Male 11:53 PM 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 Gender Identity Not on file Sexual Orientation Not on file Obstetrics History Last Filed Vital Signs Vital Sign Reading [...] 12/07/2024 8:06 PM CDT Plan of Treatment Health Maintenance Due Date Last Done Comments Hepatitis B Screening 1968 Zoster Vaccine (2 of 3) 11/04/2011 09/09/2011 Well Visit 65+ 2015 Pneumococcal vaccine 65+ (2 of 2 - PCV) 10/22/2019 10/22/2018 Depression Screening 04/23/2022 04/23/2021, 05/14/2019, 10/14/2017, Additional history exists Covid-19 Vaccine (3 - 2023-2 5 season) 2024 11/30/2020, 11/02/2020 Influenza Vaccine (Season Ended) 2025 06/09/2021, 05/24/2018, 06/07/2017, Additional history exists Fall Risk Assessment 06/03/2025 06/03/2024 Colon Cancer Screening-Colonoscopy 03/10/2029 03/10/2019, 04/22/2017 DTaP/Tdap/Td Vaccine (4 - Td or Tdap) 04/13/2030 04/13/2020, 08/09/2014, 10/09/2007 Colon Cancer Screening-CT Colonography Discontinued 04/24/2021, 03/10/2019, 04/22/2017 Colon Cancer Screening-DNA Stool Discontinued 04/24/2021, 03/10/2019, 04/22/2017 Colon Cancer Screening-FIT Discontinued 04/24, 03/10/2019, 04/22/2017 Colon Cancer Screening-Sigmoidoscopy Discontinued 04/24/2021, 03/10/2019, 04/22/2017 Prostate Cancer Screening-PSA Discontinued , 02/06/2023, 06/12/2022, Additional history exists Hepatitis C Screening Completed 12/11/2024 Medical Devices Implanted Type Area Upset Welding Machine Operator Device Identifier Shelf Expiration Date Model / Serial / Lot Exactech 32038-00 Equinoxe 38mm Reverse Shoulder +0mm Liner Humeral - [id number] - [id number] Implanted:Qty: 1 on 06/10/2018 by Steven Downs MD at [facility] Other - see comments Left: Shoulder Exactech 320-38-00 / [id number] / Exactech 320-38 38mm Glenosphere Reverse Shoulder Component Glenoid - [id number] - [id number] Implanted:Qty: 1 on 06/10/2018 by Steven Downs MD at [facility] Other - see comments Left: Shoulder Exactech 05/07/2028 320-38 / [id number] / Exactech 32015- Equinoxe Reverse Shoulder Standard Plate Glenoid - [id number] - [id number] Implanted:Qty: 1 on 06/10/2018 by Steven Downs MD at [facility] Other - see comments Left: Shoulder Exactech 04/13/2028 320-15- / [id number] / Exactech 320-20-00 Reverse Torque Define Shoulder Kit Screw - [id number] - [id number] Implanted:Qty: 1 on 06/10/2018 by Steven Downs MD at [facility] Other - see comments Left: Shoulder Exactech 05/07/2023 320-20-00 / [id number] / Exactech 320-20-18 Equinoxe 4.5mm 18mm Kit Compression Lock Cap Reverse Shoulder - [id number] - [id number] Implanted:Qty: 1 on 06/10/2018 by Steven Downs MD at [facility] Other - see comments Left: Shoulder Exactech 01/14/2023 320-20-18 / [id number] / Exactech 320-10-00 Equinoxe Reverse Shoulder +0mm Tray Humeral Adapter - [id number] - [id number] Implanted:Qty: 1 on 06/10/2018 by Steven Downs MD at [facility] Other - see comments Left: Shoulder Exactech 04/07/2028 320-10-00 / [id number] / Exactech 300-30-08 Equinoxe 8mm 70mm Stem Humeral Sterile - [id number] - [id number] Implanted:Qty: 1 on 06/10/2018 by Steven Downs MD at [facility] Other - see comments Left: Shoulder Exactech 11/27/2027 300-30-08 / [id number] / Exactech 320-15-05 Equinoxe Lock Reverse Shoulder Glenosphere Screw Bone - [id number] - [id number] Implanted:Qty: 1 on 06/10/2018 by Steven Downs MD at [facility] Screw Left: Shoulder Exactech 06/08/2023 320-15-05 / [id number] / Exactech 320-20-38 Equinoxe 4.5mm 38mm Kit Compression Lock Cap Reverse Shoulder - [id number] - [id number] Implanted:Qty: 1 on 06/10/2018 by Steven Downs MD at [facility] Screw Left: Shoulder Exactech 01/08/2023 320-20-38 / [id number] / Exactech 320-20-18 Equinoxe 4.5mm 18mm Kit Compression Lock Cap Reverse Shoulder - [id number] - [id number] Implanted:Qty: 1 on 06/10/2018 by Steven Downs MD at [facility] Screw Left: Shoulder Exactech 03/22/2021 320-20-18 / [id number] / [employer]uy [employer] [id number] Attune 5mm Cruciate Retaining Rotate Platform Knee 8 Insert - [id number] Implanted:Qty: 1 on 06/02/2019 by Steven Downs MD at [facility] Left: Knee [employer] 04/08/2024 [id number] / / [id number] [employer] [id number] Attune Cruciate Retain Cementless Knee Left 8 Component Femoral - [id number] Implanted:Qty: 1 on 06/02/2019 by Steven Downs MD at [facility] Left: Knee [employer] 10/09/2027 [id number] / / [id number] [employer] [id number] Attune Cementless Rotate Platform Knee 8 Baseplate Tibial - [id number] Implanted:Qty: 1 on 06/02/2019 by Steven Downs MD at [facility] Left: Knee [employer] 06/08/2028 [id number] / / [id number] [employer] Attune Cruciate Retain Cementless Knee Right 8 Component Femoral [id number] - [id number] Implanted:Qty: 1 on 06/02/2024 by Steven Downs MD at [facility] Right: Knee [employer] [id number] 04/08/2034 [id number] / / [id number] [employer] Attune Fb Tib Base Sz 7 Por [id number] - [id number] Implanted:Qty: 1 on 06/02/2024 by Steven Downs MD at [facility] Right: Knee [employer] [id number] 03/08/2034 [id number] / / [id number] [employer] Insert Tibial Knee Fixed Rm Posterior Stabilized Attune 6mm Size 8 Polyethylene [id number] - [id number] Implanted:Qty: 1 on 06/02/2024 by Steven Downs MD at [facility] Right: Knee [employer] [id number] 02/06/2031 [id number] / / [id number] Explanted Type Area Upset Welding Machine Operator Device Identifier Shelf Expiration Date Model / Serial / Lot [employer] [id number] 6fr 24cm 145cm Radiopaque Positioner Filiform Flexible Tip - [id number] Implanted:Qty: 1 on 09/13/2022 by Kristie Mcfarland MD at [facility] Explanted:Qty: 1 on 09/21/2022 by Kristie Mcfarland MD Left: Ureter [employer] [id number] 12/05/2024 [id number] / / [id number] [employer] [id number] 6fr 24cm 145cm Radiopaque Positioner Filiform Flexible Tip - [id number] Implanted:Qty: 1 on 09/13/2022 by Kristie Mcfarland MD at [facility] Explanted:Qty: 1 on 09/21/2022 by Kristie Mcfarland MD Right: Ureter [employer] [id number] 12/05/2024 [id number] / / [id number] Procedures Procedure Name Priority Date/Time Associated Diagnosis [...] Read Routine (OP Routine) 10/28/2024 9:11 AM 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 Dyspnea, unspecified type PSA SCREEN Routine 02/18/2024 [...] AM CDT Narrative 12/31/2024 2:24 PM [address]T [address] [address] Echocardiogram Report Patient Name: CINTHIA VOSS : [...] Procedure Note Callum Elias MD - 12/31/[address] [address] Echocardiogram Report Patient Name: CINTHIA VOSS : [...] on 2020. Testing performed by: [facility], [address] [facility], [place]., [address] Blood 12/22/2024 8:31 AM CDT 12/22/2024 2:28 PM CDT us Gary Bergeron MD LAB BLOOD ORDERABLES Final Resu lt [facility] ([place]) 1 [facility] Department [place] [address] * Anti-double stranded DNA abs (12/22/2024 8:31 AM CDT) dsDNA Ab <1.0 <=4.0 IUnits/mL Comment: Interpretive Data Negative: < or = 4 IUnits/mL Indeterminate: 5 - 9 IUnits/mL Positive: > or = 10 IUnits/mL Current interpretive data was last revised on 2017. Testing performed by: [facility], [address] [place]., [address] Blood 12/22/2024 8:31 AM CDT 12/22/2024 2:28 PM CDT Narrative A[facility]N [facility] ([place]) - 12/23/2024 10:57 AM CDT [id number] us Gary Bergeron MD LAB BLOOD ORDERABLES Final Resu lt ASHLYN [facility] ([place]) 1 [facility] Department [place] [address] * (ABNORMAL) Urinalysis reflex to microscopic and culture Urine (12/17/2024 9:27 AM CDT) Color, ur Dark-Yellow Clarity, ur Turbid(A) Clear [facility] ([place]) Specific gravity, ur 1.026 1.003 - 1.030 [facility] ([place]) pH, urine 6.0 [facility] ([place]) Comment: Interpretive Data U rine pH is affected by diet, medications, systemic acid-base disturbances, and renal tubular function. pH may affect urinary stone formation. For example, urine pH below 6.0 may help reduce the tendency for calcium phosphate stones and pH greater than 6.0 may reduce the tendency for uric acid stone formation. Source: Egan Voovio aka [employer] Current Interpretive Data was last revised on [...] Reflex to microscopic UA will be performed. [facility] ([place]) Urine 12/17/2024 9:27 AM CDT 12/17/2024 10:41 AM CDT Ever Gr MD LAB MICROBIOLOGY - GENER AL ORDERABLES Final Result Performing Organization Address [facility] Co de Phone Number [facility] ([place]) 1 [facility] [place] [address] * (ABNORMAL) Urinalysis, microscopic only (12/17/2024 9:27 AM CDT) WBC, ur 21-50(A) 0 - 5 /HPF RBC, ur >50(A) 0 - 2 /HPF [facility] ([place]) Epithelial cells, squamous, ur 1-5 0 - 5 /HPF [facility] ([place]) Mucous, ur Present(A) [facility] [place] ([place]) Culture Reflex Comment Reflex to urine culture will be performed. [facility] ([place]) Urine 12/17/2024 9:27 AM CDT 12/17/2024 10:41 AM CDT Ever Gr MD LAB URINE ORDERABLES Fin al Result Performing Organization Address City/[facility]/ZIP Co de Phone Number [facility]N [facility] ([place]) 1 [facility] [employer] [place], [place] [id number] * Urine culture Urine (12/17/2024 9:27 AM CDT) Report Final Report: Less than 100,000 colonies/mL (clinically insignificant growth based on current clinical standards) Comment:Testing performed by : [facility], 1 [facility] [place]., [address] Organism (CLINICALLY INSIGNIFICANT GROWTH [facility] ([place]) Urine 12/17/2024 9:27 AM CDT 12/17/2024 3:34 PM CDT Narrative [facility] ([place]) - 12/19/2024 7:41 AM CDT Urine culture reflexed based upon urinalysis results. Testing performed by [facility] ([phone]) Ever Gr MD LAB MICROBIOLOGY - GENER AL ORDERABLES Final Result Performing Organization Address [facility] de Phone Number [facility] ([place]) [address] [place] [address] * Cryoglobulin, serum only (12/12/2024 8:12 AM CDT) Pathologist [facility] Cryoglobulin, quant See Comment Negative [facility] Comment: Negative. The quantity of serum submitted and received is not sufficient to reliably rule out the presence of a cryoglobulin. Suggest submitting a serum sample of at least 2.0 - 2.5 mL. Test Performed by: [facility] [address] [place] [address] Shoe Puller: Emerald Solares Ph.D.; CLIA# [id number] Blood 12/12/2024 8:12 AM CDT 12/12/2024 8:17 AM CDT Ever Gr MD LAB BLOOD ORDERABLES Fin al Result Performing Organization Address [facility] Co de Phone Number [facility] ([place]) 1 [facility] [place] [address] [facility] * HIV 1/2 Antibody plus p24 Antigen Blood (12/11/2024 11:00 AM CDT) [facility] HIV 1/2 ab + p24 ag Nonreactive Nonreactive Comment: Nonreactive for HIV-1 antigen and HIV-1/HIV-2 antibodies. No laboratory evidence of HIV infection. If acute HIV infection is suspected, consider testing for HIV-1 RNA. Testing performed by: [address], [place]., [address] Blood 12/11/2024 11:0 0 AM CDT 12/11/2024 7:15 PM CDT us Ever Gr MD LAB MICROBIOLOGY - GENER AL ORDERABLES Final Result [facility] [place]ASPAL ([place]) 1 [facility] Department [place] [address] * (ABNORMAL) Urinalysis reflex to microscopic (12/11/2024 11:00 AM CDT) Color, ur Dark-Yellow Clarity, ur Clear Clear [facility] ([place]) Specific gravity, ur 1.024 1.003 - 1.030 [...] for uric acid stone formation. Source: [facility] [employer] Current Interpretive Data was last revised on [...] LAB URINE ORDERABLES Fin al Result [facility] SHAY ([place]) 1 [facility] [employer] [place] [address] * Hepatitis panel, acute Blood (12/11/2024 11:00 AM CDT) Hep A IgM Nonreactive Nonreactive Comment: Interpretive Data: If Hep A IgM Ab is reported as Equivocal, a new sample should be drawn in two weeks for testing. Current interpretive data was last revised on 19. Testing performed by: [address] [address] Hep B core IgM Nonreactive Nonreactive Misael SHAY ([place]) Comment: Interpretive Data If HepB Core IgM Ab is reported as Equivocal, a new sample should be drawn in two weeks for testing. Current interpretive data was last revised on 19. Testing performed by: [address] [address] Hep C Ab Nonreactive Nonreactive ASHLYN SHAY [...] last revised on 2019. Testing performed by: [address] [address] HepBsAg Nonreactive Nonreactive [facility] SHAY ([place]) Comment:Testing performed by : [address] [address] Blood 12/11/2024 11:0 0 AM CDT 12/11/2024 4:22 PM CDT Ever Gr MD LAB MICROBIOLOGY - GENER AL ORDERABLES Final Result [facility] SH[facility] ([place]) 1 [facility] [employer] [place] [address] * (ABNORMAL) Urinalysis, microscopic only (12/11/2024 11:00 AM CDT) WBC, ur 6-10(A) 0 - 5 /HPF RBC, ur >50(A) 0 - 2 /HPF [facility] ([place]) Epithelial cells, squamous, ur 1-5 0 - 5 /HPF [facility] ([place]) Mucous, ur Present(A) [facility] ([place]) Urine 12/11/2024 11:0 0 AM CDT 12/11/2024 11:16 AM CDT Ever Gr MD LAB URINE ORDERABLES Fin al Result Performing Organization Address [facility] Co de Phone Number [facility] ([place]) [address] [place] [address] * Urine culture Urine (12/11/2024 11:00 AM CDT) Report Final Report: Less than 100,000 colonies/mL (clinically insignificant growth based on current clinical standards) Comment:Testing performed by : [facility], 1 [facility] [place] [address] Organism (CLINICALLY INSIGNIFICANT GR[facility]TH [facility] [facility] Urine 12/11/2024 11:0 0 AM CDT 12/11/2024 2:10 PM CDT Narrative [facility] ([place]) - 12/13/2024 10:27 AM CDT Testing performed by [facility] ([phone]) Ever Gr MD LAB MICROBIOLOGY - GENER AL ORDERABLES Final Result Performing Organization Address City/[facility]/ZIP Co de Phone Number [facility] ([place]) [address] [place] [address] * Surgical pathology (12/08/2024 12:00 AM CDT) Skin, shave biopsy 12/08/2024 12/09/2024 12:12 PM CDT Narrative 12/17/2024 9:39 PM CDT EPIC results best viewed via link to PDF [facility] [address], [place] [address] [email or web address] Note to Patients: This report may contain [...] Physician Information: Dr. Gary Bergeron M.D. [address] [facility] [place], [address] [place] [address], [phone] DERMATOPATHOLOGY REPORT RESULTS DIAGNOSIS: SKIN, LEFT DISTAL [...] time of procedure. sxt/mat Clerical Data A; [address], [address] The characteristics of special, immunohistochemical, and immunofluorescence stains and in-situ hybridization tests performed by the [facility] were deemed acceptable in ongoing quality consultant measures and in compliance with regulations drawn from the Clinical Laboratory Improvement Act ev7245 (CLIA '88). Control reactions for all stains performed were deemed adequate and appropriate by a pathologist prior to evaluation of patient tissue. Some diagnoses were rendered with the assistance of laboratory-developed tests utilizing analyte-specific reagents; the performance characteristic of these tests were determined by [facility] and are not cleared or approved by the [place] Food an Drug administration. Laboratory developed test may only be performed in a facility that is certified by the [facility] as a high-complexity laboratory under CLIA '88. These tests are used for clinical purposes and are not investigational. Gary Bergeron MD LAB PATHOLOGY ORDERABLES Final Result * Sepsis Lactate w/ Reflex (12/07/2024 9:48 PM CDT) Sepsis Lactate 1.0 0.7 - 2.0 mmol/L Blood 12/07/2024 9:48 PM CDT 12/07/2024 9:51 PM CDT Cecile MORAES LAB BLOOD ORDERABLES Final Resu lt A[facility]N SHAY ([place]) 1 [facility] [employer] [place] [address] * eGFR (12/07/2024 9:48 PM [...] LAB BLOOD ORDERABLES Final Resu lt A[facility]N [facility] ([place]) 1 [facility] Department [place] [address] * (ABNORMAL) Differential, auto (12/07/2024 9:48 PM [...] MORAES LAB BLOOD ORDERABLES Final Resu lt XUSYD SHAY ([place]) 1 [facility] Department [place] [address] * (ABNORMAL) CBC with auto differential (12/07/2024 [...] Final Resu lt [facility] ([place]) 1 [facility] Department [place] [address] * (ABNORMAL) Comprehensive metabolic panel (12/07/2024 9:48 [...] BLOOD ORDERABLES Final Resu lt [facility]N SHAY ([place]) 1 [facility] Department [place] [address] * XR Chest PA Lateral 2 Views (10/28/2024 9:11 AM 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) Anatomical Region Laterality Modality Body, Chest N/A Computed Radiogr aphy 10/28/2024 9:14 AM 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 Impressions 10/28/2024 9:14 AM 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 No active pulmonary disease. Electronically signed by: Anatoly Ferrari M.D. Narrative 10/28/2024 9:14 AM 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 EXAMINATION: XR CHEST PA LATERAL 2 VIEWS [...] MD LAB BLOOD ORDERABLES Fin al Result [facility] [place] 1 [facility] Department [place] [address] * FLEXIBLE SIGMOIDOSCOPY (04/24/2021 9:06 AM CDT) Anatomical Region Laterality Modality Other Narrative Procedure Note Rosa Maria Nielsen MD - 04/24/2021 9:06 AM CDT [facility] Patient Name: Cinthia Voss Procedure Date: 04/24/2021 9:06 AM Date of : 1950 Admit Type: Inpatient Age: 70 Gender: Male Attending MD: Rosa Maria Nielsen M.D. Room: [facility] ENDOSCOPY ROOM 1 Note Status: Finalized Patient [...] passed under direct vision. The Endoscope [id number] was introduced through the anus and advanced [...] 9:06 AM Procedure Code(s): --- Professional --- 84752, Sigmoidoscopy, flexible; diagnostic, including collection of specimen(s) by brushing or washing, when performed (separateprocedure) Diagnosis Code(s): --- Professional --- R93.3, Abnormal findings on diagnostic imaging of other parts of digestive tract CPT copyright 2019 [employer]. All rights reserved. The codes documented in this report are preliminary and upon clinical coder reviewmay be revised to meet current compliance requirements. Recognized by the [employer] for promoting quality in endoscopy us Rosa Maria Nielsen MD ENDOSCOPY PROCEDURES Final Result * COLONOSCOPY (03/10/2019 11:02 AM CDT) Anatomical Region Laterality Modality Other Narrative Procedure Note Rosa Maria Nielsen MD - 03/10/2019 11:02 AM CDT [facility] Patient Name: Cinthia Voss Procedure Date: 03/10/2019 11:02 AM Date of : 1950 Admit Type: Outpatient Age: 68 Gender: Male Attending MD: Rosa Maria Nielsen M.D. Room: [facility] ENDOSCOPY ROOM 1 Note Status: Finalized Patient [...] passed under direct vision.The Pediatric Colonoscope PCF-H190L [id number] was used initially but then replaced with [...] 11:02 AM Procedure Code(s): --- Professional --- 34250, 52, Colonoscopy, flexible; diagnostic, including collection of [...] parts of digestive tract CPT copyright 2017 [employer]. All rights reserved. The codes documented in this report are preliminary and upon clinical coder reviewmay be revised to meet current compliance requirements. 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 Expl anation ADVANCE DIRECTIVE 03/10/2018 6:52 PM [...] 10:16 AM 03/10/2019 6:35 PM Care Teams Assistant Men'S Soccer Coach Relationship Specialty Start Date End Date Ever Gr MD [employer] [facility] [address] PCP - General Internal Medicine 04/24/18 Jack Washington MD [address] [place] [address] [place] [address] Consulting Physician Infectious Diseases 04/26/21 Ever Gaspar MD [address] [place] [address] [place] [address] Surgeon General Surgery 04/26/21 Matt Martinez NP [address] [place] [address] [place] [address] Nurse Practitioner Orthopedic Surgery 06/03/24
[2025-01-01 07:45] LABS: Estimated Glomerular Filt Rate 46
== END 2025-01-01 07:09 | disposition home or self-care (01) ==
PROVIDERS: PCP Internal Medicine; Visit Provider Internal Medicine
DX: N20.2 Calculus of kidney with calculus of ureter (principal); K76.0 Fatty (change of) liver, not elsewhere classified; K57.90 Diverticulosis of intestine, part unspecified, without perforation or abscess without bleeding; N18.30 Chronic kidney disease, stage 3 unspecified; D48.5 Neoplasm of uncertain behavior of skin
CPT/HCPCS: 74178; Q9967

== ENCOUNTER 2025-01-11 15:46 | Outpatient (CLI) | payer OTHER, SELFPAY ==
--- NOTE | ~2025-01-11 | XR_ITS ---
Supine and upright views of the abdomen Clinical history: Renal stone Findings: Bowel gas pattern is nonspecific. No evidence for obstruction or free air. Suspected somewh at amorphous 10 mm calcification projecting just right of the L3-L4 disc space.. Osseous structures a re intact. Impression: Somewhat amorphous 10 mm calcification just right of the L3-L4 disc space. Right renal pelvis stone i s a consideration. Reviewed, dictated and finalized at location . Impression: Somewhat amorphous 10 mm calcification just right of the L3-L4 disc space. Righ t renal pelvis stone is a consideration.
== END 2025-01-11 15:47 | disposition home or self-care (01) ==
LOC: MICIMG 15:48
PROVIDERS: PCP Internal Medicine; Visit Provider Urology
DX: M51.87 Other intervertebral disc disorders, lumbosacral region (principal); N20.0 Calculus of kidney
CPT/HCPCS: 74018

== ENCOUNTER 2025-01-19 08:51 | Outpatient (CLI) | payer OTHER, SELFPAY ==
--- NOTE | 2025-01-19 09:00 | ECG_ITS ---
Test Date: 2025-01-19 09:20:28 Measurements Intervals Solo Rate: 67 P: 48 MS: 180 QRS: -59 QRSD: 93 T: 47 QT: 362 QTc: 383 Interpretive Statements SINUS RHYTHM MARKED LEFT AXIS DEVIATION [QRS AXIS < -30] INCOMPLETE RIGHT BUNDLE BRANCH BLOCK [90+ ms QRS DURATION, TERMINAL R IN V1/V2, 40+ ms S IN I/aVL/V4/V5/V6] POSSIBLE ANTERIOR MYOCARDIAL INFARCTION [30 ms Q WAVE IN V3/V4, OR R < 0.2 mV IN V4], OF INDETERMINATE AGE No previous ECG available for comparison Electronically Signed On 01-19-2025 15:00:13 CDT by Arthur Church M.D.
--- OUTSIDE RECORDS SUMMARY | 2025-01-19 09:02 | XMS_ITS ---
Author Organization [facility] Address [address] [place] [address] Care Team Providers Care Clinical Research Monitor Name Role Phone Ever Gr MD Primary Care Provider + Jack Washington MD Unavailable [phone] Ever Gaspar MD Unavailable + [phone] Matt Martinez NP Unavailable [phone] Active Problems Problem Noted Date Diagnosed Date S/P TKR (total knee replacement), right 06/02/20 Primary osteoarthritis of right knee 05/14/2024 Arthritis 01/10/2024 Rhinitis 01/10/2024 Mixed hyperlipidemia 05/28/2023 Assessment & Plan (01/12/2025 12:34 PM CDT): Continue rosuvastatin. Assessment & Plan (04/28/2024 9:04 AM CDT): Continue Crestor Assessment & Plan (05/28/2023 1:20 PM CDT): Continue Crestor for hyperlipidemia. 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 08/10/2022 Neoplasm of uncertain behavior of skin Verruca vulgaris 08/10/2022 Nephrolithiasis 08/08/2022 Overview (08/08/2022): Added automatically from request for surgery [id number] Kidney stone 08/08/2022 Overview (08/08/2022): Added automatically from request for surgery [id number] High cholesterol 07/27/2022 Other chest pain 04/03/2022 [...] (05/14/2019): Added automatically from request for surgery [id number] Abnormal CT scan 02/16/2019 Overview (02/16/2019): Added automatically from request for surgery [id number] Abnormal feces 02/16/2019 Overview (02/16/2019): Added automatically from request for surgery [id number] Chronic pain of left knee 08/27/2018 Arthritis of left knee 08/27/2018 Acute medial meniscus tear of left knee 08/27/20 18 Preoperative evaluation to r lyne out surgical contraindication 06/11/2018 Assessment & Plan (04/28/2024 9:03 AM CDT): The patient is cleared for the proposed total knee replacement. Rotator cuff arthropathy of left shoulder 2017 Overview (05/27/2018): Added automatically from request for surgery [id number] Bicipital tendinitis, left 05/27/2018 Overview (05/27/2018): Added automatically from request for surgery [id number] Localized osteoarthritis of left shoulder 2017 Obstructive sleep apnea syndrome 03/21/2018 Myalgia 02/10/2018 Rotator cuff arthropathy, left 11/21/2017 Overview (11/21/2017): Added automatically from request for surgery [id number] Left bicipital tenosynovitis 11/21/2017 Overview (11/21/2017): Added automatically from request for surgery [id number] Cervicalgia 10/15/2017 Cervical radiculopathy 10/15/2017 Spondylosis of [...] Insomnia 01/23/2014 Overview (12/14/2016): INSOMNIA NEC Dyspnea on exertion Assessment & Plan (01/12/2025 12:36 PM CDT): Dyspnea exertion that is progressive and does not have a definite diagnosis. Though noninvasive cardiac testing has only shown diastolic dysfunction I recommend a right and left heart catheterization tentatively define the the patient is hemodynamics including coronary arteries anatomy and presence or absence of pulmonary hypertension. Current Treatment and Therapy Plans No current [...] (05/24/2021): Added automatically from request for surgery [id number] Assessment & Plan (06/16/2021 6:28 AM CDT): [...]
--- OUTSIDE RECORDS SUMMARY | 2025-01-19 09:02 | XMS_ITS | Encounter Summary ---
Author Organization [facility] Address [address] [place] [address] Care Team Providers Care Sheet Metal Apprentice Name Role Phone Unavailable Primary Care Provider Unavailabl e Encounter Details Date Type Department Care Team (Late st Contact Info) Description 12/31/2024 Lab Requisition [facility] - DermPath Lab [address] [place] [address] Gary Bergeron MD [address] [place] [id number] Social History Tobacco Use Types Packs/Day [...] Priority Date/Time Associated Diagnosis Comments DERMATOPATHOLOGY Routine 12/30/2024 12:0 0 AM CDT documented in this encounter Results * DERMATOPATHOLOGY (12/30/2024 12:00 AM CDT) Case Report Dermatopathology Report Case: [id number] Authorizing Provider: Gary Bergeron MD Collected: 12/30/2024 12:00 AM Ordering Location: [facility] - Received: 12/31/2024 12:40 PM DermPath Lab Pathologist: Jazmyne Gutierrez MD Specimen: Skin, upper back 3:01 PM CDT DERMATOPATHOLOGY LABORATORY Final Diagnosis Specimen A. SKIN, upper back: BASAL CELL CARCINOMA (C44.519) (see microscopic description) 3:01 PM CDT DERMATOPATHOLOGY LABORATORY at 1501 CDT Clinical History BCC 3:01 PM CDT DERMATOPATHOLOGY LABORATORY Gross Description Specimen A: Received is one formalin filled container labeled with the patient's name and designated upper back. The specimen consists of a shave biopsy measuring 4x4x1 mm. Jar 0. 3:01 PM CDT DERMATOPATHOLOGY LABORATORY Microscopic Description Specimen A. SKIN, upper back: Sections show superficial fragments of skin. Collections of basaloid cells are present in the dermis, which are highlighted on a Gideon-EP4 immunohistochemical stain. Original and deeper sections were reviewed. 3:01 PM CDT DERMATOPATHOLOGY LABORATORY Disclaimer An external and internal positive and negative controls are appropriate for the histochemical, immunohistochemical and immunofluorescence stain(s) in this case (if any), except where stated explicitly. The performance characteristics of the stain(s) cited in this report were developed and its performance characteristic determined by the Dermatopathology Laboratory at [facility], directed by Dr. Shu Jimenez. These tests need not be, and therefore are not, approved by the [place] Food and Drug Administration. The tests are used for clinical purposes. Billing Codes Specimen Charges Stain Charges 88445 1 65343 1 3:01 PM CDT DERMATOPATHOLOGY LABORATORY Embedded Images 3:01 PM CDT DERMATOPATHOLOGY LABORATORY Pathology/Cytolog y TISSUE SPECIMEN FROM SKIN / Unknown 12/30/2024 12/31/2024 12:40 PM CDT us Gary Bergeron MD LAB - PATHOLOGY/CYTOLOGY ORDERAB LES Final Result DERMATOPATHOLOGY LABORATORY [facility] - Department of Dermatology [address] [place] [address], [facility] [phone] documented in this encounter Visit Diagnoses Not on filedocumented in this encounter
--- OUTSIDE RECORDS SUMMARY | 2025-01-19 09:02 | XMS_ITS | Clinical Summary ---
Author Organization [facility] Address [address] [place] [address] Care Team Providers Care Corporate Tax Manager Name Role Phone Unavailable Primary Care Provider Unavailabl e Source Comments [facility],non-owned Affiliates and Associated Physician Practices is amultiple site organization consisting of ambulatory clinics and hospital sitesin [place], [place], [place] and [place]. This disclosure is being madepursuant to the Care Everywhere program and may not contain all information available regarding this patient. Last updated 18.[facility] Allergies Active Allergy Reactions Criticality Noted Date [...] PO) Active Cholecalciferol (VITAMIN D-3 PO) Active [place]-3 Fatty Acids (FISH OIL) 500 MG capsule Take by mouth 2 times daily Active rosuvastatin (CRESTOR) 40 MG tablet Take 40 mg by mouth once daily Active Encounters Date Type Department Care Team Description 12/31/2024 Lab Requisition [facility] - DermPath Lab [address] [place] [id number] Gary Bergeron MD from Last 3 Months [...] - Oxygen Saturation 94% 08/15/2017 8:45 AM BAREBACK RIDER Inhaled Oxygen Concentration - - Weight 97.5 [...] DERMATOPATHOLOGY Routine 12/30/2024 12:0 0 AM CDT from Last 3 Months Results * DERMATOPATHOLOGY (12/30/2024 12:00 AM CDT) Case Report Dermatopathology Report Case: [id number] Authorizing Provider: Gary Bergeron MD Collected: 12/30/2024 12:00 AM Ordering Location: [facility] - Received: 12/31/2024 12:40 PM [...] characteristic determined by the Dermatopathology Laboratory at [facility], directed by Dr. Shu Jimenez. These tests need not be, and therefore are not, approved by the [place] Food and Drug Administration. The tests are used for clinical purposes. Billing Codes Specimen Charges Stain Charges 44785 1 42778 1 3:01 PM CDT DERMATOPATHOLOGY LABORATORY Embedded Images 3:01 PM CDT DERMATOPATHOLOGY LABORATORY Pathology/Cytolog y TISSUE SPECIMEN FROM SKIN / Unknown 12/30/2024 12/31/2024 12:40 PM CDT Gary Bergeron MD LAB - PATHOLOGY/CYTOLOGY ORDERAB LES Final Result DERMATOPATHOLOGY LABORATORY [facility] - Department of Dermatology [facility] [address] [place] [address], [facility] [phone] from Last 3 Months Insurance [facility] Address: [facility] [id number] [place] [address] AETNA [facility] [facility] Address: [facility] [address] [place] [address]
--- OUTSIDE RECORDS SUMMARY | 2025-01-19 09:02 | XMS_ITS | Encounter Summary ---
Author Organization [facility] Address [address] [place] [address] Care Team Providers Care Mill Set Up Name Role Phone Unavailable Primary Care Provider Unavailabl e Encounter Details Date Type Department Care Team (Late st Contact Info) Description 08/15/2022 Lab Requisition [facility] DermPath Lab [address] [facility] [place] [address] Gary Bergeron MD [facility] [address] [id number] Social History Tobacco Use Types [...] Comments DERMATOPATHOLOGY Routine 08/14/2022 12:0 0 AM SMALL PARTS ASSEMBLER documented in this encounter Results * DERMATOPATHOLOGY (08/14/2022 12:00 AM SMALL PARTS ASSEMBLER) Case Report Dermatopathology Report Case: [id number] Authorizing Provider: Gary Bergeron MD Collected: 08/14/2022 12:00 AM Ordering Location: [facility] DermPath Lab Received: 08/15/2022 11:05 AM Pathologist: Jazmyne Gutierrez MD Specimen: Skin, upper back 3:24 PM SMALL PARTS ASSEMBLER DERMATOPATHOLOGY LABORATORY Final Diagnosis Specimen A. SKIN, upper back: BASAL CELL CARCINOMA, KERATOTIC TYPE (C44.519) (see microscopic description) 2 3:24 PM [facility] DERMATOPATHOLOGY LABORATORY Clinical History R/O BCC, Sup 2 3:24 PM [facility] DERMATOPATHOLOGY LABORATORY Gross Description Specimen A: Received is one formalin filled container labeled with the patient's name and designated upper back. The specimen consists of a shave biopsy measuring 6x4x1 mm. Jar 0. 2 3:24 PM [facility] DERMATOPATHOLOGY LABORATORY Microscopic Description Specimen A. SKIN, upper back: The dermis is infiltrated by nests of basaloid cells that show peripheral palisading and are associated with fibromyxoid stroma. Both mitotic figures and necrotic cells are identified. There are also areas with squamous differentiation and keratinization within the nests. Additional deeper sections were obtained and reviewed. 3:24 PM [facility] DERMATOPATHOLOGY LABORATORY Disclaimer An external and internal positive and negative controls are appropriate for the histochemical, immunohistochemical and immunofluorescence stain(s) in this case (if any), except where stated explicitly. The performance characteristics of the stain(s) cited in this report were developed and its performance characteristic determined by the Dermatopathology Laboratory at [facility], directed by Dr. Shu Jimenez. These tests need not be, and therefore are not, approved by the [place] Food and Drug Administration. The tests are used for clinical purposes. Billing Codes Specimen Charges Stain Charges 46331 1 2 3:24 PM [facility] DERMATOPATHOLOGY LABORATORY Embedded Images 2 3:24 PM [facility] DERMATOPATHOLOGY LABORATORY Pathology/Cytolog y TISSUE SPECIMEN FROM SKIN / Unknown 08/14/2022 08/15/2022 11:05 AM SMALL PARTS ASSEMBLER us Gary Bergeron MD LAB - PATHOLOGY/CYTOLOGY ORDERAB LES Final Result DERMATOPATHOLOGY LABORATORY [facility] - Department of Dermatology [address] [place] [address], [facility] [phone] documented in this encounter Visit Diagnoses Not on filedocumented in this encounter
--- OUTSIDE RECORDS SUMMARY | 2025-01-19 09:02 | XMS_ITS | Data Portability ---
Author Organization [facility], Main Office Address [address] [facility] [address] [place] [address] Assessment No assessment recorded. Plan of Treatment Reminders Order Date Submit Date Provider Last Modified By Organization Details Last Modified Time Details Appointments PROCEDURE 30 2024 09:00A M Dr. Bergeron Not available Not available Not available Lab None recorded. Referral None recorded. Procedures None recorded. Surgeries None recorded. Imaging None recorded. Medication Orders None recorded. Patient TargetsNo targets recorded. Patient InstructionsNo instructions recorded. Reason for Referral None Reported. Problems Name Problem SNOMED Code Status Onset Date Resolution Date Notes Provider Name and Address Organization Details Recorded Time Neoplasm of uncertain behavior of skin 99812316 Active 2021 Gary Bergeron MD [address] [facility] [address], [place], [address], [facility] 2 10:24:17 Verruca vulgaris 61962738 Active 2021 Gary Bergeron MD [address] [facility] [address], [place], [address], [facility] 2 10:24:22 Chronic effect of ultraviolet radiation on normal skin 764886239 Active 2021 Gary Bergeron MD [address] [facility] [address], [place], [address], [facility] 2 10:26:36 Basal cell carcinoma of back 906942838 Active 2022 Gary Bergeron MD [address] [address], [place], [address], [facility] 3 10:22:26 Inflamed seborrheic keratosis 921087017 Active 2022 Gary Bergeron MD [address] [facility] [address], [place], [address], [facility] 3 11:04:35 Benign lymphocytic infiltration of Jess[place] 94103328 Active 2024 Gary Bergeron MD [address] [facility] [address], [place], [address], [facility] 5 17:19:28 Seborrheic keratosis 643571033 Active 2020 Gary Bergeron MD [address] [facility] [address], [place], [address], [facility] 1 11:08:09 Senile angioma 9102057 Active 2020 Gary Bergeron MD [address] [facility] [address], [place], [address], [facility] 1 11:08:11 History of malignant basal cell neoplasm of skin 911950868 Active 2020 Gary Bergeron MD [address] [facility] [address], [place], [address], [facility] 1 11:08:12 Problem Notes None recorded. Procedures Surgical History Date Name Laterality Status Provider Name and Address Organization Details Recorded Time 07/23/2018 Shave Biopsy active Gary gorman MD [address] [facility] [address], [place], [address], [facility] 07/23/2018 09:42:01 Imaging Results None recorded. Procedure Notes None recorded. Medical Equipment None Reported. Allergies Allergen ID Allergen Name Allergen Category Reaction Reaction Severity Criticality Documentation Date Start Date Code Code System Note Provider Name and Address Organization Details Recorded Time 723 Product containin g penicilli n (product) medicatio n Not available Not available Not available 05/14/2018 13078 8001 SNOMED Nena Gomez [facility] 8 10:10:14 Medications Name Sig Start Date [...] SNOMED-CT Code Diagnosis ICD10 Code Diagnosis Note [id number] Gary Bergeron MD Main Office [address] [facility] [address] [place] [address] 10/10/2022 09:55:15 10/10/2022 10:36:19 Basal cell carcinoma of back 612866270 C44.519 Health Concerns Section Related Observation LastModified by Organization Detai ls LastModified Time None Recorded Concern Status LastModified by Organization Details LastModified Time None Recorded Advance Directives Directive None Recorded Payers None recorded.
--- OUTSIDE RECORDS SUMMARY | 2025-01-19 09:02 | XMS_ITS | Encounter Summary ---
Author Organization [facility] Address [address] [facility] [place] [address] Care Team Providers Care Guitar Repair Technician Name Role Phone Unavailable Primary Care Provider Unavailabl e Encounter Details Date Type Department Care Team (Late st Contact Info) Description 07/24/2018 Lab Requisition [facility] Care DermPath Lab [address] [facility], [place] [address] Gary Bergeron MD [facility] [address] Social History Tobacco Use Types [...] Comments DERMATOPATHOLOGY Routine 07/23/2018 12:0 0 AM RIM TURNING FINISHER documented in this encounter Results * DERMATOPATHOLOGY (07/23/2018 12:00 AM RIM TURNING FINISHER) Case Report Dermatopathology Report Case: [id number] Authorizing Provider: Gary Bergeron MD Collected: 07/23/2018 12:00 AM Pathologist: Remedios Barriga MD Received: 07/24/2018 09:32 AM Specimen: Skin, mid upper back 8 12:56 PM RIM TURNING FINISHER DERMATOPATHOLOGY LABORATORY Final Diagnosis Specimen A. SKIN, mid upper back: BASAL CELL CARCINOMA, NODULAR TYPE (C44.519) 8 12:56 PM RIM TURNING FINISHER DERMATOPATHOLOGY LABORATORY Clinical History R/O BCC 12:56 PM [facility] DERMATOPATHOLOGY LABORATORY Gross Description Specimen A: Received is one formalin filled container labeled with the patient's name and designated mid upper back. The specimen consists of a shave biopsy measuring 6x5x1 mm. Jar 0. 12:56 PM [facility] DERMATOPATHOLOGY LABORATORY Microscopic Description Specimen A. SKIN, mid upper back: Within the dermis there are aggregates of basaloid cells with a high nuclear to cytoplasmic ratio and peripheral palisading. 12:56 PM [facility] DERMATOPATHOLOGY LABORATORY Disclaimer An external and internal positive and negative controls are appropriate for the histochemical, immunohistochemical and immunofluorescence stain(s) in this case (if any), except where stated explicitly. The performance characteristics of the stain(s) cited in this report were developed and its performance characteristic determined by the Dermatopathology Laboratory at [facility]. These tests need not be, and therefore are not, approved by the [place] Food and Drug Administration. The tests are used for clinical purposes. Billing Codes Specimen Charges Stain Charges 13723 1 12:56 PM [facility] DERMATOPATHOLOGY LABORATORY Embedded Images 12:56 PM [facility] DERMATOPATHOLOGY LABORATORY Pathology/Cytolog y TISSUE SPECIMEN FROM SKIN / Unknown 07/23/2018 07/24/2018 9:32 AM RIM TURNING FINISHER us Gary Bergeron MD LAB - PATHOLOGY/CYTOLOGY ORDERAB LES Final Result DERMATOPATHOLOGY LABORATORY [facility] - Department of Dermatology [address] [place] [address], [address]th [place] [address], [facility] [phone] documented in this encounter Visit Diagnoses Not on filedocumented in this encounter
--- OUTSIDE RECORDS SUMMARY | 2025-01-19 09:02 | XMS_ITS | Clinical Summary ---
Author Organization [facility] Address [address], [address] [address] Phone Care Team Providers Care Founder & Ceo Name Role Phone Thaddeus Cedeno MD Unavailable [phone] Nataliya Adhikari DPM Unavailable [phone] Ever Gr MD Primary Care Provider [phone] Allergies Active Allergy Reactions Criticality Noted Date [...] s Tablet Take by mouth. Activ e Franklin-3 Fatty Acids (FISH OIL) 500 MG Capsule [...] Comments Blood Pressure 120/70 07/24/2022 11:20 AM DIRECTOR CALL CENTER SALES Pulse 78 07/24/2022 11:20 AM DIRECTOR CALL CENTER SALES Temperature 36.8 C (98.3 F) 01/21/2019 8:42 AM CDT Respiratory Rate 18 07/24/2022 11:20 AM DIRECTOR CALL CENTER SALES Oxygen Saturation 98% 07/24/2022 11:20 AM DIRECTOR CALL CENTER SALES Inhaled Oxygen Concentration - - Weight 102.5 kg (226 lb) 07/24/2022 11:20 AM DIRECTOR CALL CENTER SALES Height 177.8 cm (5' 10 ) 07/24/2022 11:20 AM DIRECTOR CALL CENTER SALES Body Mass Index 32.43 07/24/2022 11:20 AM DIRECTOR CALL CENTER SALES Plan of Treatment Health Maintenance Due Date [...] Most Recently Relevant to Health Maintenance Insurance [facility] MEDIC[facility] Care Teams Founder & Ceo Relationship Specialty Start Date End Date Ever Gr MD [address] [address] PCP - General Internal Medicine 03/05/23 Thaddeus Cedeno MD General Surgery 04/05/16 Nataliya Adhikari DPM Consulting Physician Podiatry 07/24/22
--- OUTSIDE RECORDS SUMMARY | 2025-01-19 09:02 | XMS_ITS | Referral Summary ---
Author Organization [facility] Address [address] [place] [address] Care Team Providers Care Jig Filler Name Role Phone Ever Gr MD Primary Care Provider + Jack Washington MD Unavailable [phone] Ever Gaspar MD Unavailable [phone] Matt Martinez NP Unavailable [phone] Encounters Date Type Department Care Team Description 01/12/2025 10:00 AM CDT Office Visit [facility] [address] [place] [address] Walter Yao MD Diastolic dysfunction (Primary Dx); Mixed hyperlipidemia; Left anterior fascicular block; Dyspnea on exertion 01/05/2025 Telephone [facility] [address] [place] [address] Walter Yao MD 12/31/2024 8:28 AM CDT - 12/31/2024 11:59 PM CDT Hospital Encounter [facility] Cardiology [address] [place] [address] Dyspnea, unspecified type Discharge Disposition: Discharge to home or self care 12/22/2024 8:25 AM CDT Lab [address] [address] 12/17/2024 9:25 AM CDT Lab [address] [address] 12/12/2024 8:10 AM CDT Lab [address] [address] 12/11/2024 10:50 AM CDT [address] [address] 12/08/2024 Orders Only [facility] [address] [place] [address] Gary Bergeron MD 12/07/2024 8:10 PM CDT - 12/07/2024 10:41 PM CDT Emergency [facility] Emergency Department [address] [place] [address] Rash (Primary Dx) Discharge Disposition: Discharge to home or self care 10/28/2024 9:00 AM QUALITY CONTROL CHECKER - 10/28/2024 11:59 PM QUALITY CONTROL CHECKER Hospital Encounter [facility] Diagnostic Imaging [address] [place] [address] Kaleb Noel MD Dyspnea, unspecified type Discharge [...] total) by mouth daily 30 tablet 11 2 Active Additional Information Patient not taking.Reported on 01/12/2025 albuterol 2.5 mg /3 mL (0.083 %) nebulizer solution Take 3 mL (2.5 mg total) by nebulization every 6 (six) hours as needed for wheezing Active Tezspire 210 mg/1.91 mL (110 mg/mL) pen injector 4 Active lactobacillus combination no.4 (Probiotic) 3 billion cell capsule Active Airsupra 90-80 mcg/actuation HFA aerosol inhaler Inhale 2 puffs every 6 (six) hours as needed 4 Active magnesium oxide (MAG-OX) 400 mg (241.3 mg elemental magnesium) tablet Take 1 tablet (400 mg total) by mouth daily Active polyethylene glycol (MIRALAX) 17 gram/dose bulk powder Take 17 g by mouth daily Active multivit-min/fol ic/vit K/lycop (MEN'S MULTIVITAMIN ORAL) Take by mouth Active senna-docusate (PERICOLACE) 8.6-50 mg 1-2 times daily as needed for constipation 60 tablet 1 4 Active ondansetron (ZOFRAN) 4 mg tablet Every 4-6 hours as needed 30 tablet 1 4 Active ascorbic acid (VITAMIN C) 500 mg tablet,chewable Take 1 tablet/chew tab (500 mg total) by mouth 2 (two) times a day 60 tablet/chew tab 4 Active aspirin 81 mg chewable tablet Take 1 tablet (81 mg total) by mouth 2 (two) times a day 60 tablet 4 Active oxyCODONE-acetam inophen (PERCOCET) 5-325 mg per tabletIndication s:Pain Take 1-2 tablets by mouth every 4 (four) hours as needed for pain 63 tablet 4 Active Additional Information Patient not taking.Reported on 01/12/2025 traMADoL (ULTRAM) 50 mg tablet Take 1 tablet (50 mg total) by mouth every 6 (six) hours as needed for pain Active Active Problems Problem Noted Date Diagnosed [...] (08/08/2022): Added automatically from request for surgery [id number] Kidney stone 08/08/2022 Overview (08/08/2022): Added automatically from request for surgery [id number] High cholesterol 07/27/2022 Other chest pain 04/03/2022 [...] (05/14/2019): Added automatically from request for surgery [id number] Abnormal CT scan 02/16/2019 Overview (02/16/2019): Added automatically from request for surgery [id number] Abnormal feces 02/16/2019 Overview (02/16/2019): Added automatically from request for surgery [id number] Chronic pain of left knee 08/27/2018 Arthritis of left knee 08/27/2018 Acute medial meniscus tear of left knee 08/27/20 18 Preoperative evaluation to r ule out surgical contraindication 06/11/2018 Assessment & Plan (04/28/2024 9:03 AM CDT): The patient is cleared for the proposed total knee replacement. Rotator cuff arthropathy of left shoulder 2017 Overview (05/27/2018): Added automatically from request for surgery [id number] Bicipital tendinitis, left 05/27/2018 Overview (05/27/2018): Added automatically from request for surgery [id number] Localized osteoarthritis of left shoulder 2017 Obstructive sleep apnea syndrome 03/21/2018 Myalgia 02/10/2018 Rotator cuff arthropathy, left 11/21/2017 Overview (11/21/2017): Added automatically from request for surgery [id number] Left bicipital tenosynovitis 11/21/2017 Overview (11/21/2017): Added automatically from request for surgery [id number] Cervicalgia 10/15/2017 Cervical radiculopathy 10/15/2017 Spondylosis of [...] and presence or absence of pulmonary hypertension. Resolved Problems Problem Noted Date Diagnosed Date Resolved Date Diverticulitis 05/24/2021 07/18/2021 Overview (05/24/2021): Added automatically from request for surgery [id number] Assessment & Plan (06/16/2021 6:28 AM CDT): [...] on file Legal Sex Male 11:53 PM QUALITY CONTROL CHECKER Gender Identity Not on file Sexual Orientation Not on file Last Filed Vital Signs Vital Sign Reading Time Taken Comments Blood Pressure 118/79 01/12/2025 9:52 AM CDT Pulse 81 01/12/2025 9:52 AM CDT Temperature 36.5 C (97.7 F) 12/07/2024 8:06 PM CDT Respiratory Rate 16 01/12/2025 9:52 AM CDT Oxygen Saturation 96% 01/12/2025 9:52 AM CDT Inhaled Oxygen Concentration - - Weight 97.1 kg (214 lb) 01/12/2025 9:52 AM CDT Height 177.8 cm (5' 10 ) 12/07/2024 8:06 PM CDT Body Mass Index 30.71 12/07/2024 8:06 PM CDT Plan of Treatment Not on file Medical Devices Implanted Type Area Therapy Director Device Identifier Shelf Expiration Date Model / Serial / Lot Exactech 320-38-00 Equinoxe 38mm Reverse Shoulder +0mm Liner Humeral - [id number] - [id number] Implanted:Qty: 1 on 06/10/2018 by Steven Downs MD at [facility] Other - see comments Left: Shoulder Exactech 32038-00 / [id number] / Exactech 320-38 38mm Glenosphere Reverse Shoulder Component Glenoid - [id number] - [id number] Implanted:Qty: 1 on 06/10/2018 by Steven Downs MD at [facility] Other - see comments Left: Shoulder Exactech 05/07/2028 320--38 / [id number] / Exactech 32015- Equinoxe Reverse Shoulder Standard Plate Glenoid - [id number] - [id number] Implanted:Qty: 1 on 06/10/2018 by Steven Downs MD at [facility] Other - see comments Left: Shoulder Exactech 04/13/2028 32015- / [id number] / Exactech 32020- Reverse Torque Define Shoulder Kit Screw - [id number] - [id number] Implanted:Qty: 1 on 06/10/2018 by Steven Downs MD at [facility] Other - see comments Left: Shoulder Exactech 05/07/2023 320-20-00 / [id number] / Exactech 320-20-18 Equinoxe 4.5mm 18mm Kit Compression Lock Cap Reverse Shoulder - [id number] - [id number] Implanted:Qty: 1 on 06/10/2018 by Steven Downs MD at [facility] Other - see comments Left: Shoulder Exactech 01/14/2023 320-20-18 / [id number] / Exactech 320-10-00 Equinoxe Reverse Shoulder +0mm Tray Humeral Adapter - [id number] - [id number] Implanted:Qty: 1 on 06/10/2018 by Steven Downs MD at [facility] Other - see comments Left: Shoulder Exactech 04/07/2028 320-10-00 / [id number] / Exactech 300-30-08 Equinoxe 8mm 70mm Stem Humeral Sterile - [id number] - [id number] Implanted:Qty: 1 on 06/10/2018 by Steven Downs MD at [facility] Other - see comments Left: Shoulder Exactech 11/27/2027 300-30-08 / [id number] / Exactech 320-15-05 Equinoxe Lock Reverse Shoulder Glenosphere Screw Bone - [id number] - [id number] Implanted:Qty: 1 on 06/10/2018 by Steven Downs MD at [facility] Screw Left: Shoulder Exactech 06/08/2023 320-15-05 / [id number] / Exactech 320-20-38 Equinoxe 4.5mm 38mm Kit Compression Lock Cap Reverse Shoulder - [id number] - [id number] Implanted:Qty: 1 on 06/10/2018 by Steven Downs MD at [facility] Screw Left: Shoulder Exactech 01/08/2023 320-20-38 / [id number] / Exactech 320-20-18 Equinoxe 4.5mm 18mm Kit Compression Lock Cap Reverse Shoulder - [id number] - [id number] Implanted:Qty: 1 on 06/10/2018 by Steven Downs MD at [facility] Screw Left: Shoulder Exactech 03/22/2021 320-20-18 / [id number] / [employer] [id number] Attune 5mm Cruciate Retaining Rotate Platform Knee 8 Insert - [id number] Implanted:Qty: 1 on 06/02/2019 by Steven Downs MD at [facility] Left: Knee [employer] 04/08/2024 [id number] / / [id number] [employer] [id number] Attune Cruciate Retain Cementless Knee Left 8 Component Femoral - [id number] Implanted:Qty: 1 on 06/02/2019 by Steven Downs MD at [facility] Left: Knee [employer] 10/09/2027 [id number] / / [id number] [employer] [id number] Attune Cementless Rotate Platform Knee 8 Baseplate Tibial - [id number] Implanted:Qty: 1 on 06/02/2019 by Steven Downs MD at [facility] Left: Knee [employer] 06/08/2028 [id number] / / [id number] [employer] Attune Cruciate Retain Cementless Knee Right 8 Component Femoral [id number] - [id number] Implanted:Qty: 1 on 06/02/2024 by Steven Downs MD at [facility] Right: Knee [employer] [id number] 04/08/2034 [id number] / / [id number] [employer] Attune Fb Tib Base Sz 7 Por [id number] - [id number] Implanted:Qty: 1 on 06/02/2024 by Steven Downs MD at [facility] Right: Knee [employer] [id number] 03/08/2034 [id number] / / [id number] [employer] Insert Tibial Knee Fixed Rm Posterior Stabilized Attune 6mm Size 8 Polyethylene [id number] - [id number] Implanted:Qty: 1 on 06/02/2024 by Steven Downs MD at [facility] Right: Knee [employer] [id number] 02/06/2031 [id number] / / [id number] Explanted Type Area Therapy Director Device Identifier Shelf Expiration Date Model / Serial / Lot [place] [employer] [id number] 6fr 24cm 145cm Radiopaque Positioner Filiform Flexible Tip - [id number] Implanted:Qty: 1 on 09/13/2022 by Kristie Mcfarland MD at [facility] Explanted:Qty: 1 on 09/21/2022 by Kristie Mcfarland MD Left: Ureter [employer] [id number] 12/05/2024 [id number] / / [id number] [employer] [id number] 6fr 24cm 145cm Radiopaque Positioner Filiform Flexible Tip - [id number] Implanted:Qty: 1 on 09/13/2022 by Kristie Mcfarland MD at [facility] Explanted:Qty: 1 on 09/21/2022 by Kristie Mcfarland MD Right: Ureter [employer] [id number] 12/05/2024 [id number] / / [id number] Procedures Procedure Name Priority Date/Time Associated Diagnosis [...] Read Routine (OP Routine) 10/28/2024 9:11 AM QUALITY CONTROL CHECKER Dyspnea, unspecified type PSA SCREEN Routine 02/18/2024 [...] AM CDT Narrative 12/31/2024 2:24 PM [address]T [address] [address] Echocardiogram Report Patient Name: CINTHIA VOSS : [...] Procedure Note Callum Elias MD - 12/31/[address] [address] Echocardiogram Report Patient Name: CINTHIA VOSS : [...] last revised on 2020. Testing performed by: [facility], [address] [facility] [place]., [address] Blood 12/22/2024 8:31 AM CDT 12/22/2024 2:28 PM CDT us Gary Bergeron MD LAB BLOOD ORDERABLES Final Resu lt [facility] ([place]) [address] [facility] Department [place] [address] * Anti-double stranded DNA abs (12/22/2024 8:31 AM CDT) dsDNA Ab <1.0 <=4.0 IUnits/mL Comment: Interpretive Data Negative: < or = 4 IUnits/mL Indeterminate: 5 - 9 IUnits/mL Positive: > or = 10 IUnits/mL Current interpretive data was last revised on 2017. Testing performed by: [facility], [address] [place]., [address] Blood 12/22/2024 8:31 AM CDT 12/22/2024 2:28 PM CDT Narrative [facility] ([place]) - 12/23/2024 10:57 AM CDT [id number] us Gary Bergeron MD LAB BLOOD ORDERABLES Final Resu lt [facility] ([place]) [address] [facility] Department [place] [address] * (ABNORMAL) Urinalysis reflex to microscopic and [...] tendency for uric acid stone formation. Source: Directly Current Interpretive Data was last revised on [...] - GENER AL ORDERABLES Final Result [facility] ([place] [address] [facility] Department [place] [address] * (ABNORMAL) Urinalysis, microscopic only (12/17/2024 9:27 AM CDT) WBC, ur 21-50(A) 0 - 5 /HPF RBC, ur >50(A) 0 - 2 /HPF [facility] ([place]) Epithelial cells, squamous, ur 1-5 0 - 5 /HPF [facility] ([place]) Mucous, ur Present(A) [facility] ([place]) Culture Reflex Comment Reflex to urine culture will be performed. [facility] Specimen (Source) Anatomical Location / Laterality Collection Method / Volume Collecti [id number]|2025-01-19 09:02:00|2025-01-19 09:02:00|XMS_ITS|SYEDG DAALISSA|External Medical Summaries|[id number]|" Encounter Summary Created on: January 19, 2025 Cinthia Voss : 1950 Sex: Male Author Organization [facility] Address [address] [place] [address] Care Team Providers Care Jig Filler Name Role Phone Unavailable Primary Care Provider Unavailabl e Encounter Details Date Type Department Care Team (Latest Contact Info) Description 02/11/2002 Outpatient [facility] Geoff Landaverde MD LUMBAR DISC DISPLACEMENT (Primary Dx) Social History Tobacco Use Types Packs/Day Years Used Date Smoking Tobacco: Never Assessed Sex and Gender Information Value Date Recorded Sex Assigned at Not on file Legal Sex Male 3:42 AM QUALITY CONTROL CHECKER Gender Identity Not on file Sexual Orientation Not on file documented as of this encounter Plan of Treatment Not on file documented as of this encounter Visit Diagnoses Diagnosis Displacement of lumbar intervertebral disc without myelopathy- Primary documented in this encounter "
--- OUTSIDE RECORDS SUMMARY | 2025-01-19 09:03 | XMS_ITS | Encounter Summary ---
Author Organization [facility] Address 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
--- OUTSIDE RECORDS SUMMARY | 2025-01-19 09:03 | XMS_ITS | Clinical Summary ---
Author Organization [facility] Address [address] [place] [address] Care Team Providers Care Jacquard Loom Fixer Name Role Phone Ever Gr MD Primary Care Provider + Jack Washington MD Unavailable [phone] Ever Gaspar MD Unavailable [phone] Matt Martinez NP Unavailable [phone] Allergies Active Allergy Reactions Criticality Noted Date [...] (08/08/2022): Added automatically from request for surgery [id number] Kidney stone 08/08/2022 Overview (08/08/2022): Added automatically from request for surgery [id number] High cholesterol 07/27/2022 Other chest pain 04/03/2022 [...] (05/14/2019): Added automatically from request for surgery [id number] Abnormal CT scan 02/16/2019 Overview (02/16/2019): Added automatically from request for surgery [id number] Abnormal feces 02/16/2019 Overview (02/16/2019): Added automatically from request for surgery [id number] Chronic pain of left knee 08/27/2018 Arthritis of left knee 08/27/2018 Acute medial meniscus tear of left knee 08/27/20 18 Preoperative evaluation to r ule out surgical contraindication 06/11/2018 Assessment & Plan (04/28/2024 9:03 AM CDT): The patient is cleared for the proposed total knee replacement. Rotator cuff arthropathy of left shoulder 2017 Overview (05/27/2018): Added automatically from request for surgery [id number] Bicipital tendinitis, left 05/27/2018 Overview (05/27/2018): Added automatically from request for surgery [id number] Localized osteoarthritis of left shoulder 2017 Obstructive sleep apnea syndrome 03/21/2018 Myalgia 02/10/2018 Rotator cuff arthropathy, left 11/21/2017 Overview (11/21/2017): Added automatically from request for surgery [id number] Left bicipital tenosynovitis 11/21/2017 Overview (11/21/2017): Added automatically from request for surgery [id number] Cervicalgia 10/15/2017 Cervical radiculopathy 10/15/2017 Spondylosis of [...] (05/24/2021): Added automatically from request for surgery [id number] Assessment & Plan (06/16/2021 6:28 AM CDT): [...] Description 01/12/2025 10:00 AM CDT Office Visit [facility] [address] [facility] [address] [place] [address] Walter Yao MD Diastolic dysfunction (Primary Dx); Mixed hyperlipidemia; Left anterior fascicular block; Dyspnea on exertion 01/05/2025 Telephone [facility] [address] [facility] [address] [place] [address] Walter Yao MD 12/31/2024 8:28 AM CDT - 12/31/2024 11:59 PM CDT Hospital Encounter [facility] Cardiology [address] [place] [address] Dyspnea, unspecified type Discharge Disposition: Discharge to home or self care 12/22/2024 8:25 AM CDT Lab [address] [address] 12/17/2024 9:25 AM CDT Lab [address] [address] 12/12/2024 8:10 AM CDT Lab [address] [address] 12/11/2024 10:50 AM CDT [address] [address] 12/08/2024 Orders Only [facility] [address] [place] [address] Gary Bergeron MD 12/07/2024 8:10 PM CDT - 12/07/2024 10:41 PM CDT Emergency [facility] Emergency Department [address] [place] [address] Rash (Primary Dx) Discharge Disposition: Discharge to home or self care 10/28/2024 9:00 AM LINER CHECKER - 10/28/2024 11:59 PM LINER CHECKER Hospital Encounter [facility] [address] [place] [address] Kaleb Noel MD Dyspnea, unspecified type Discharge [...] History Relation Name Comments Hypertension Brother 2 Paulo Hypertension; Other Brother 3 skydiving accid ent; Cause of : skydiving accident Alcohol abuse Father Q Cirrhosis Father Q Cirrhosis; Caus e of : Cirrhosis Other Mother Yas Gehrig dise ase; Cause of : Yas Gehrig disease Relation Name Status Comments Brother 1 Brother 2 Paulo Brother 3 Father Q (Age 46) Mother (Age 64) Social History [...] on file Legal Sex Male 11:53 PM LINER CHECKER Gender Identity Not on file Sexual [...] Completed 12/11/2024 Medical Devices Implanted Type Area Sow Farm Barn Technician Device Identifier Shelf Expiration Date Model / Serial / Lot Exactech 320-38-00 Equinoxe 38mm Reverse Shoulder +0mm Liner Humeral - [id number] - [id number] Implanted:Qty: 1 on 06/10/2018 by Steven Downs MD at [facility] Other - see comments Left: Shoulder Exactech 320-38-00 / [id number] / Exactech 320-01-38 38mm Glenosphere Reverse Shoulder Component Glenoid - [id number] - [id number] Implanted:Qty: 1 on 06/10/2018 by Steven Downs MD at [facility] Other - see comments Left: Shoulder Exactech 05/07/2028 320-01-38 / [id number] / Exactech 320-15-01 Equinoxe Reverse Shoulder Standard Plate Glenoid - [id number] - [id number] Implanted:Qty: 1 on 06/10/2018 by Steven Downs MD at [facility] Other - see comments Left: Shoulder Exactech 04/13/2028 320-15-01 / [id number] / Exactech 320-20-00 Reverse Torque Define Shoulder Kit Screw - [id number] - [id number] Implanted:Qty: 1 on 06/10/2018 by Steven Downs MD at [facility] Other - see comments Left: Shoulder Exactech 05/07/2023 320-20-00 / [id number] / Exactech 320-20-18 Equinoxe 4.5mm 18mm Kit Compression Lock Cap Reverse Shoulder - [id number] - [id number] Implanted:Qty: 1 on 06/10/2018 by Steven Downs MD at [facility] Other - see comments Left: Shoulder Exactech 01/14/2023 320-20-18 / [id number] / Exactech 320-10-00 Equinoxe Reverse Shoulder +0mm Tray Humeral Adapter - [id number] - [id number] Implanted:Qty: 1 on 06/10/2018 by Steven Downs MD at [facility] Other - see comments Left: Shoulder Exactech 04/07/2028 320-10-00 / [id number] / Exactech 300-30-08 Equinoxe 8mm 70mm Stem Humeral Sterile - [id number] - [id number] Implanted:Qty: 1 on 06/10/2018 by Steven Downs MD at [facility] Other - see comments Left: Shoulder Exactech 11/27/2027 300-30-08 / [id number] / Exactech 320-15-05 Equinoxe Lock Reverse Shoulder Glenosphere Screw Bone - [id number] - [id number] Implanted:Qty: 1 on 06/10/2018 by Steven Downs MD at [facility] Screw Left: Shoulder Exactech 06/08/2023 320-15-05 / [id number] / Exactech 320-20-38 Equinoxe 4.5mm 38mm Kit Compression Lock Cap Reverse Shoulder - [id number] - [id number] Implanted:Qty: 1 on 06/10/2018 by Steven Downs MD at [facility] Screw Left: Shoulder Exactech 01/08/2023 320-20-38 / [id number] / Exactech 320-20-18 Equinoxe 4.5mm 18mm Kit Compression Lock Cap Reverse Shoulder - [id number] - [id number] Implanted:Qty: 1 on 06/10/2018 by Steven Downs MD at [facility] Screw Left: Shoulder Exactech 03/22/2021 320-20-18 / [id number] / Depuy [employer] [id number] Attune 5mm Cruciate Retaining Rotate Platform Knee 8 Insert - [id number] Implanted:Qty: 1 on 06/02/2019 by Steven Downs MD at [facility] Left: Knee [employer] 04/08/2024 [id number] / / [id number] Depuy [employer] [id number] Attune Cruciate Retain Cementless Knee Left 8 Component Femoral - [id number] Implanted:Qty: 1 on 06/02/2019 by Steven Downs MD at [facility] Left: Knee [employer] 10/09/2027 [id number] / / [id number] Depuy [employer] [id number] Attune Cementless Rotate Platform Knee 8 Baseplate Tibial - [id number] Implanted:Qty: 1 on 06/02/2019 by Steven Downs MD at [facility] Left: Knee [employer] 06/08/2028 [id number] / / [id number] [employer] Attune Cruciate Retain Cementless Knee Right 8 Component Femoral [id number] - [id number] Implanted:Qty: 1 on 06/02/2024 by Steven Downs MD at [facility] Right: Knee [employer] [id number] 04/08/2034 [id number] / / [id number] Depuy [employer] Attune Fb Tib Base Sz 7 Por [id number] - [id number] Implanted:Qty: 1 on 06/02/2024 by Steven Downs MD at [facility] Right: Knee [employer] [id number] 03/08/2034 [id number] / / [id number] Depuy [employer] Insert Tibial Knee Fixed Rm Posterior Stabilized Attune 6mm Size 8 Polyethylene [id number] - [id number] Implanted:Qty: 1 on 06/02/2024 by Steven Downs MD at [facility] Right: Knee [employer] [id number] 02/06/2031 [id number] / / [id number] Explanted Type Area Sow Farm Barn Technician Device Identifier Shelf Expiration Date Model / Serial / Lot sharing.it [id number] 6fr 24cm 145cm Radiopaque Positioner Filiform Flexible Tip - [id number] Implanted:Qty: 1 on 09/13/2022 by Kristie Mcfarland MD at [facility] Explanted:Qty: 1 on 09/21/2022 by Kristie Mcfarland MD Left: Ureter [employer] [id number] 12/05/2024 [id number] / / [id number] [employer] [id number] 6fr 24cm 145cm Radiopaque Positioner Filiform Flexible Tip - [id number] Implanted:Qty: 1 on 09/13/2022 by Kristie Mcfarland MD at [facility] Explanted:Qty: 1 on 09/21/2022 by Kristie Mcfarland MD Right: Ureter [employer] [id number] 12/05/2024 [id number] / / [id number] Procedures Procedure Name Priority Date/Time Associated Diagnosis [...] Read Routine (OP Routine) 10/28/2024 9:11 AM LINER CHECKER Dyspnea, unspecified type PSA SCREEN Routine [...] AM CDT Narrative 12/31/2024 2:24 PM CDT [address] [place] [address] Echocardiogram Report Patient Name: CINTHIA VOSS : [...] Procedure Note Callum Elias MD - 12/31/[address] [place] [address] Echocardiogram Report Patient Name: CINTHIA VOSS : [...] last revised on 2020. Testing performed by: [facility], [address] [place]., [address] Blood 12/22/2024 8:31 AM CDT 12/22/2024 2:28 PM CDT us Gary Bergeron MD LAB BLOOD ORDERABLES Final Resu lt [facility] [address] [facility] [place] [address] * Anti-double stranded DNA abs (12/22/2024 8:31 AM CDT) dsDNA Ab <1.0 <=4.0 IUnits/mL Comment: Interpretive Data Negative: < or = 4 IUnits/mL Indeterminate: 5 - 9 IUnits/mL Positive: > or = 10 IUnits/mL Current interpretive data was last revised on 2017. Testing performed by: [facility], [address] [place]., [address] Blood 12/22/2024 8:31 AM CDT 12/22/2024 2:28 PM CDT Narrative [id number]|2025-01-19 09:03:00|2025-01-19 09:02:00|XMS_ITS|BKG DAEMON|External Medical Summaries|[id number]|" Clinical Summary Created on: January 19, 2025 Cinthia Voss : 1950 Sex: Male Author Organization [facility] Address [address] [place]: [place] [address] Care Team Providers Care Jacquard Loom Fixer Name Role Phone Unavailable Primary Care Provider Unavailabl e Social History Tobacco Use Types Packs/Day Years Used Date Smoking Tobacco: Never Assessed Sex and Gender Information Value Date Recorded Sex Assigned at Not on file Legal Sex Male 3:42 AM LINER CHECKER Gender Identity Not on file Sexual [...] ) (1 - 1-dose 75+ series) 2025 "
[2025-01-19 10:48] LABS: INR 0.9; Prothrombin Time 12.9 Seconds (11.1-14.7)
[2025-01-19 10:49] LABS: Partial Thromboplastin Time 24.8 Seconds (22.3-36.8)
== END 2025-01-19 08:52 | disposition home or self-care (01) ==
LOC: ANHSURGERY 08:55
PROVIDERS: PCP Internal Medicine; Visit Provider Urology
DX: Z01.818 Encounter for other preprocedural examination (principal); N20.0 Calculus of kidney; E78.00 Pure hypercholesterolemia, unspecified
CPT/HCPCS: 36415; 85610; 85730; 87086; 93005

== ENCOUNTER 2025-01-29 00:51 | Day surgery (SDC) | payer OTHER, SELFPAY ==
[2025-01-15 14:41] VITALS: BMI 30.7
--- NOTE | 2025-01-15 15:14 | PC.NURSE ---
Report to the Outpatient Waiting Room, entrance under the green pavilion located off [facility], at time ___8:00AM____ on date ___01/29/25____. Planned Procedure Time: ___10:00AM .? Time changes happen often and if your time is changed the preop area will call you the afternoon before. - You and your visitor will be asked to self-screen and do not enter if you have any COVID symptoms. Please call surgeon if you need to reschedule. - A mask is optional within the hospital at this time. Patients may have clear liquids (water, carbonated beverages, clear teas, apple juice) until 3 hours prior to surgery (7:00AM) with a maximum of 20 ounces. - No food from midnight until time of surgery and no smoking, or chewing tobacco (or any form of nicotine). No chewing gum, candy or mints. Take only the following medications with a SIP of water on the morning of surgery: ___TRELEGY ELIPTA INHALER. MAY USE AIRSUPRA INHALER, NEBULIZER AND TRAMADOL NEEDED. DO NOT STOP ANY OF YOUR OTHER PRESCRIPTION MEDICATIONS PRIOR TO SURGERY EXCEPT THE FOLLOWING Medications to discontinue per physician __HOLD DICLOFENAC/VOLTAREN (NSAIDS) & VITAMINS/SUPPLEMENTS (FISH OIL) 7 DAYS PRE-OP PER DR ABREU____ Date to take last dose 01/21/25 Please no make-up, nail maori, hairspray, perfume, deodorant, or body powder the day of surgery.? No jewelry (including any body piercings) or valuables the day of surgery, leave them at home.? Please take a shower or bath the night before, or the morning of, surgery with an antibacterial soap.? Wear comfortable, loose fitting clothing.? - Jewelry must be removed prior to entering the operating room.? Rings and piercings that are not removed may be cut off. - The hospital will not accept responsibility for valuables.? - Please leave all valuables, including medications, at home the day of surgery. If you are going home after surgery, a licensed driver/refuse collector must drive you home.? - NO public transportation without another adult if you receive anesthesia. - We recommend that an adult stay with you for 24 hours following discharge. - We also recommend that you do not drive, make important decision, drink alcoholic beverages, or take any drugs that were not prescribed by your health care provider for at least 24 hours after your discharge time. Follow any additional instructions given to you from your surgeon. Telephone instructions given to ____PATIENT and asked if any additional questions and then verbalized understanding. Patient advised to call surgeon office or pre surgery nurse liaison [phone] if any additional questions.
[2025-01-29] VITALS (8 sets, daily range): BP systolic 128–147; BP diastolic 62–85; PULSE 55–82; RESP 14–20; TEMP 36.2–36.4; O2SAT 95–99
--- NOTE | ~2025-01-29 | XR_ITS ---
XR abdomen/kub 1V 01/29/2025 07:12 Indication: Right renal stone Procedure: KUB Comparison: 01/11/2025 Findings: There is a right renal stone measuring 1.4 x 0.8 cm. Severe lumbar spondylosis. Severe oste oarthritis of the hips. No acute bone or joint abnormality. Nonobstructive bowel gas pattern. There i s left basilar atelectasis. Impression: 1: Right nephrolithiasis. Reviewed, dictated and finalized at location B. Impression: 1: Right nephrolithiasis.
--- OUTSIDE RECORDS SUMMARY | 2025-01-29 00:53 | XMS_ITS | Clinical Summary ---
Author Organization [facility] Address [address] [facility] [place] [address] Care Team Providers Care Crushing Foreman Name Role Phone Unavailable Primary Care Provider Unavailabl e Source Comments [facility],non-owned Affiliates and Associated Physician Practices is amultiple site organization consisting of ambulatory clinics and hospital sitesin [place], [place], [place] and [place]. This disclosure is being madepursuant to the Care Everywhere program and may not contain all information available regarding this patient. Last updated 18.[facility] Allergies Active Allergy Reactions Criticality Noted Date [...] PO) Active Cholecalciferol (VITAMIN D-3 PO) Active [place]-3 Fatty Acids (FISH OIL) 500 MG capsule Take by mouth 2 times daily Active rosuvastatin (CRESTOR) 40 MG tablet Take 40 mg by mouth once daily Active Encounters Date Type Department Care Team Description 12/31/2024 Lab Requisition [facility] - DermPath Lab [address] [place] [address] Gary Bergeron MD from Last 3 Months [...] - Oxygen Saturation 94% 08/15/2017 8:45 AM SUPERVISOR MACHINE SETTER Inhaled Oxygen Concentration - - Weight 97.5 [...] AM CDT) Case Report Dermatopathology Report Case: [id number] Authorizing Provider: Gary Bergeron MD Collected: 12/30/2024 12:00 AM Ordering Location: [facility] - Received: 12/31/2024 12:40 PM [...] characteristic determined by the Dermatopathology Laboratory at [facility], directed by Dr. Shu Jimenez. These tests need not be, and therefore are not, approved by the [place] Food and Drug Administration. The tests are used for clinical purposes. Billing Codes Specimen Charges Stain Charges 90240 1 82023 1 3:01 PM CDT DERMATOPATHOLOGY LABORATORY Embedded Images 3:01 PM CDT DERMATOPATHOLOGY LABORATORY Pathology/Cytolog y TISSUE SPECIMEN FROM SKIN / Unknown 12/30/2024 12/31/2024 12:40 PM CDT us Gary Bergeron MD LAB - PATHOLOGY/CYTOLOGY ORDERAB LES Final Result DERMATOPATHOLOGY LABORATORY [facility] - Department of Dermatology [address] [place] [address], [facility] [phone] from Last 3 Months Insurance [employer]
--- OUTSIDE RECORDS SUMMARY | 2025-01-29 00:53 | XMS_ITS | Clinical Summary ---
Author Organization [facility] Address [address], [address] [address] Phone Care Team Providers Care College Basketball Coach Name Role Phone Thaddeus Cedeno MD Unavailable [phone] Nataliya Adhikari DPM Unavailable [phone] Ever Gr MD Primary Care Provider [phone] Allergies Active Allergy Reactions Criticality Noted Date [...] s Tablet Take by mouth. Activ e [place]-3 Fatty Acids (FISH OIL) 500 MG Capsule [...] Comments Blood Pressure 120/70 07/24/2022 11:20 AM MANAGER OF QUALITY Pulse 78 07/24/2022 11:20 AM MANAGER OF QUALITY Temperature 36.8 C (98.3 F) 01/21/2019 8:42 AM CDT Respiratory Rate 18 07/24/2022 11:20 AM MANAGER OF QUALITY Oxygen Saturation 98% 07/24/2022 11:20 AM MANAGER OF QUALITY Inhaled Oxygen Concentration - - Weight 102.5 kg (226 lb) 07/24/2022 11:20 AM MANAGER OF QUALITY Height 177.8 cm (5' 10 ) 07/24/2022 11:20 AM MANAGER OF QUALITY Body Mass Index 32.43 07/24/2022 11:20 AM MANAGER OF QUALITY Plan of Treatment Health Maintenance Due Date [...] Most Recently Relevant to Health Maintenance Insurance [facility] MEDICARE Care Teams College Basketball Coach Relationship Specialty Start Date End Date Ever Gr MD [address] [address] PCP - General Internal Medicine 03/05/23 Thaddeus Cedeno MD General Surgery 04/05/16 Nataliya Adhikari DPM Consulting Physician Podiatry 07/24/22
--- OUTSIDE RECORDS SUMMARY | 2025-01-29 00:53 | XMS_ITS | Encounter Summary ---
Author Organization [facility] Address [address] [facility] [place] [address] Care Team Providers Care Store Group Manager Name Role Phone Unavailable Primary Care Provider Unavailabl e Encounter Details Date Type Department Care Team (Late st Contact Info) Description 07/24/2018 Lab Requisition [facility] Care DermPath Lab [address] [facility] [place] [address] Gary Bergeron MD [facility] [address] Social History Tobacco Use Types [...] Comments DERMATOPATHOLOGY Routine 07/23/2018 12:0 0 AM INSIDE POLISHER documented in this encounter Results * DERMATOPATHOLOGY (07/23/2018 12:00 AM INSIDE POLISHER) Case Report Dermatopathology Report Case: [id number] Authorizing Provider: Gary Bergeron MD Collected: 07/23/2018 12:00 AM Pathologist: Remedios Barriga MD Received: 07/24/2018 09:32 AM Specimen: Skin, mid upper back 8 12:56 PM INSIDE POLISHER DERMATOPATHOLOGY LABORATORY Final Diagnosis Specimen A. SKIN, mid upper back: BASAL CELL CARCINOMA, NODULAR TYPE (C44.519) 8 12:56 PM INSIDE POLISHER DERMATOPATHOLOGY LABORATORY at [address] INSIDE POLISHER Clinical History R/O BCC 12:56 PM [facility] DERMATOPATHOLOGY LABORATORY Gross Description Specimen A: Received is one formalin filled container labeled with the patient's name and designated mid upper back. The specimen consists of a shave biopsy measuring 6x5x1 mm. Jar 0. 12:56 PM [facility] DERMATOPATHOLOGY LABORATORY Microscopic Description Specimen A. SKIN, mid upper back: Within the dermis there are aggregates of basaloid cells with a high nuclear to cytoplasmic ratio and peripheral palisading. 12:56 PM [facility] DERMATOPATHOLOGY LABORATORY Disclaimer An external and internal positive and negative controls are appropriate for the histochemical, immunohistochemical and immunofluorescence stain(s) in this case (if any), except where stated explicitly. The performance characteristics of the stain(s) cited in this report were developed and its performance characteristic determined by the Dermatopathology Laboratory at [facility]. These tests need not be, and therefore are not, approved by the [place] Food and Drug Administration. The tests are used for clinical purposes. Billing Codes Specimen Charges Stain Charges 79804 1 12:56 PM [facility] DERMATOPATHOLOGY LABORATORY Embedded Images 12:56 PM [facility] DERMATOPATHOLOGY LABORATORY Pathology/Cytolog y TISSUE SPECIMEN FROM SKIN / Unknown 07/23/2018 07/24/2018 9:32 AM INSIDE POLISHER us Gary Bergeron MD LAB - PATHOLOGY/CYTOLOGY ORDERAB LES Final Result DERMATOPATHOLOGY LABORATORY [facility] - Department of Dermatology [address] [facility] [place] [address], [facility] [phone] documented in this encounter Visit Diagnoses Not on filedocumented in this encounter
--- OUTSIDE RECORDS SUMMARY | 2025-01-29 00:53 | XMS_ITS ---
Author Organization [facility] Address [address] [place] [address] Care Team Providers Care Vaccine Key Customer Leader Name Role Phone Ever Gr MD Primary Care Provider + Jack Washington MD Unavailable [phone] Ever Gaspar MD Unavailable [phone] Matt Martinez NP Unavailable [phone] Active Problems Problem Noted Date Diagnosed Date [...] (08/08/2022): Added automatically from request for surgery [id number] Kidney stone 08/08/2022 Overview (08/08/2022): Added automatically from request for surgery [id number] High cholesterol 07/27/2022 Other chest pain 04/03/2022 [...] (05/14/2019): Added automatically from request for surgery [id number] Abnormal CT scan 02/16/2019 Overview (02/16/2019): Added automatically from request for surgery [id number] Abnormal feces 02/16/2019 Overview (02/16/2019): Added automatically from request for surgery [id number] Chronic pain of left knee 08/27/2018 Arthritis of left knee 08/27/2018 Acute medial meniscus tear of left knee 08/27/20 18 Preoperative evaluation to r lyne out surgical contraindication 06/11/2018 Assessment & Plan (04/28/2024 9:03 AM CDT): The patient is cleared for the proposed total knee replacement. Rotator cuff arthropathy of left shoulder 2017 Overview (05/27/2018): Added automatically from request for surgery [id number] Bicipital tendinitis, left 05/27/2018 Overview (05/27/2018): Added automatically from request for surgery [id number] Localized osteoarthritis of left shoulder 2017 Obstructive sleep apnea syndrome 03/21/2018 Myalgia 02/10/2018 Rotator cuff arthropathy, left 11/21/2017 Overview (11/21/2017): Added automatically from request for surgery [id number] Left bicipital tenosynovitis 11/21/2017 Overview (11/21/2017): Added automatically from request for surgery [id number] Cervicalgia 10/15/2017 Cervical radiculopathy 10/15/2017 Spondylosis of [...] (05/24/2021): Added automatically from request for surgery [id number] Assessment & Plan (06/16/2021 6:28 AM CDT): [...]
--- OUTSIDE RECORDS SUMMARY | 2025-01-29 00:53 | XMS_ITS | Encounter Summary ---
Author Organization [facility] Address [address] [facility] [place] [address] Care Team Providers Care Power Tool Repair Technician Name Role Phone Unavailable Primary Care Provider Unavailabl e Encounter Details Date Type Department Care Team (Late st Contact Info) Description 08/15/2022 Lab Requisition [facility] DermPath Lab [address] [facility] [place] [address] Gary Bergeron MD [facility] [address] [address] Social History Tobacco Use Types [...] Comments DERMATOPATHOLOGY Routine 08/14/2022 12:0 0 AM EDUCATION FACULTY MEMBER documented in this encounter Results * DERMATOPATHOLOGY (08/14/2022 12:00 AM EDUCATION FACULTY MEMBER) Case Report Dermatopathology Report Case: [id number] Authorizing Provider: Gary Bergeron MD Collected: 08/14/2022 12:00 AM Ordering Location: [facility] Received: 08/15/2022 11:05 AM Pathologist: Jazmyne Gutierrez MD Specimen: Skin, upper back 3:24 PM EDUCATION FACULTY MEMBER DERMATOPATHOLOGY LABORATORY Final Diagnosis Specimen A. SKIN, upper back: BASAL CELL CARCINOMA, KERATOTIC TYPE (C44.519) (see microscopic description) 2 3:24 PM [facility] DERMATOPATHOLOGY LABORATORY at [address]24 EDUCATION FACULTY MEMBER Clinical History R/O BCC, Sup 2 3:24 PM [facility] DERMATOPATHOLOGY LABORATORY Gross Description Specimen A: Received is one formalin filled container labeled with the patient's name and designated upper back. The specimen consists of a shave biopsy measuring 6x4x1 mm. Jar 0. 2 3:24 PM [facility] DERMATOPATHOLOGY LABORATORY Microscopic Description Specimen A. SKIN, upper back: The dermis is infiltrated by nests of basaloid cells that show peripheral palisading and are associated with fibromyxoid stroma. Both mitotic figures and necrotic cells are identified. There are also areas with squamous differentiation and keratinization within the nests. Additional deeper sections were obtained and reviewed. 2 3:24 PM [facility] DERMATOPATHOLOGY LABORATORY Disclaimer An external and internal positive and negative controls are appropriate for the histochemical, immunohistochemical and immunofluorescence stain(s) in this case (if any), except where stated explicitly. The performance characteristics of the stain(s) cited in this report were developed and its performance characteristic determined by the Dermatopathology Laboratory at [facility], directed by Dr. Shu Jimenez. These tests need not be, and therefore are not, approved by the [place] Food and Drug Administration. The tests are used for clinical purposes. Billing Codes Specimen Charges Stain Charges 06492 1 2 3:24 PM [facility] DERMATOPATHOLOGY LABORATORY Embedded Images 2 3:24 PM [facility] DERMATOPATHOLOGY LABORATORY Pathology/Cytolog y TISSUE SPECIMEN FROM SKIN / Unknown 08/14/2022 08/15/2022 11:05 AM EDUCATION FACULTY MEMBER us Gary Bergeron MD LAB - PATHOLOGY/CYTOLOGY ORDERAB LES Final Result DERMATOPATHOLOGY LABORATORY [facility] - Department of Dermatology [address] [place] [address], [facility] [phone] documented in this encounter Visit Diagnoses Not on filedocumented in this encounter
--- OUTSIDE RECORDS SUMMARY | 2025-01-29 00:53 | XMS_ITS | Encounter Summary ---
Author Organization [facility] Address [address] [facility] [address] [place] [address] Care Team Providers Care Outbound Sales Consultant Name Role Phone Unavailable Primary Care Provider Unavailabl e Encounter Details Date Type Department Care Team (Late st Contact Info) Description 12/31/2024 Lab Requisition [facility] - DermPath Lab [address] [place] [address] Gary Bergeron MD [address] [place] [phone] Social History Tobacco Use Types Packs/Day [...] AM CDT) Case Report Dermatopathology Report Case: [id number] Authorizing Provider: Gary Bergeron MD Collected: 12/30/2024 12:00 AM Ordering Location: [facility] - Received: 12/31/2024 12:40 [...] characteristic determined by the Dermatopathology Laboratory at [facility], directed by Dr. Shu Jimenez. These tests need not be, and therefore are not, approved by the [place] Food and Drug Administration. The tests are used for clinical purposes. Billing Codes Specimen Charges Stain Charges 62087 1 06439 1 3:01 PM CDT DERMATOPATHOLOGY LABORATORY Embedded Images 3:01 PM CDT DERMATOPATHOLOGY LABORATORY Pathology/Cytolog y TISSUE SPECIMEN FROM SKIN / Unknown 12/30/2024 12/31/2024 12:40 PM CDT us Gary Bergeron MD LAB - PATHOLOGY/CYTOLOGY ORDERAB LES Final Result DERMATOPATHOLOGY LABORATORY [facility] - Department of Dermatology [address] [place] [address], [facility] [phone] documented in this encounter Visit Diagnoses Not on filedocumented in this encounter
--- OUTSIDE RECORDS SUMMARY | 2025-01-29 00:53 | XMS_ITS | Data Portability ---
Author Organization [facility], Main Office Address [address] [facility] [address] [place] [phone] Assessment No assessment recorded. 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 Gary Bergeron MD [address] [facility] [address], [place], [phone], [facility] 2 10:24:17 Verruca vulgaris 92164176 Active 2021 Gary Bergeron MD [address] [facility] [address], [place], [phone], [facility] 2 10:24:22 Chronic effect of ultraviolet radiation on normal skin 122461135 Active 2021 Gary Bergeron MD [address] [facility] [address], [place], [phone], [facility] 2 10:26:36 Basal cell carcinoma of back 676213384 Active 2022 Gary Bergeron MD [address] [place], [phone], [facility] 3 10:22:26 Inflamed seborrheic keratosis 443909270 Active 2022 Gary Bergeron MD [address] [facility] [address], [place], [phone], 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 5 17:19:28 Seborrheic keratosis 789710216 Active 2020 Gary Bergeron MD [address] [facility] [address], [place], [address], 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 1 11:08:11 History of malignant basal cell neoplasm of skin 973569682 Active 2020 Gary Bergeron MD [address] [facility] [address], [place], [address], [facility] 1 11:08:12 Problem Notes None recorded. Procedures Surgical History Date Name Laterality Status Provider Name and Address Organization Details Recorded Time 07/23/2018 Shave Biopsy active Gary gorman MD [address] [facility] [address], [place], [phone], [facility] 07/23/2018 09:42:01 Imaging Results None recorded. Procedure Notes None recorded. Medical Equipment None Reported. Allergies Allergen ID Allergen Name Allergen Category Reaction Reaction Severity Criticality Documentation Date Start Date Code Code System Note Provider Name and Address Organization Details Recorded Time 723 Product containin g penicilli n (product) medicatio n Not available Not available Not available 05/14/2018 [id number] SNOMED Nena Gomez [facility] 8 10:10:14 Medications Name Sig Start Date [...] SNOMED-CT Code Diagnosis ICD10 Code Diagnosis Note [id number] Gary Bergeron MD Main Office [address] [facility] [address] [place] [phone] 10/10/2022 09:55:15 10/10/2022 10:36:19 Basal cell carcinoma of back [id number] C44.519 Health Concerns Section Related Observation LastModified by Organization Detai ls LastModified Time None Recorded Concern Status LastModified by Organization Details LastModified Time None Recorded Advance Directives Directive None Recorded Payers None recorded.
--- OUTSIDE RECORDS SUMMARY | 2025-01-29 00:54 | XMS_ITS | Clinical Summary ---
Author Organization [facility] Address [address] [place] [address] Care Team Providers Care Route Delivery Service Driver Name Role Phone Ever Gr MD Primary Care Provider + Jack Washington MD Unavailable [phone] Ever Gaspar MD Unavailable [phone] Matt Martinez NP Unavailable [phone] Allergies Active Allergy Reactions Criticality Noted Date [...] (08/08/2022): Added automatically from request for surgery [id number] Kidney stone 08/08/2022 Overview (08/08/2022): Added automatically from request for surgery [id number] High cholesterol 07/27/2022 Other chest pain 04/03/2022 [...] (05/14/2019): Added automatically from request for surgery [id number] Abnormal CT scan 02/16/2019 Overview (02/16/2019): Added automatically from request for surgery [id number] Abnormal feces 02/16/2019 Overview (02/16/2019): Added automatically from request for surgery [id number] Chronic pain of left knee 08/27/2018 Arthritis of left knee 08/27/2018 Acute medial meniscus tear of left knee 08/27/20 18 Preoperative evaluation to r ule out surgical contraindication 06/11/2018 Assessment & Plan (04/28/2024 9:03 AM CDT): The patient is cleared for the proposed total knee replacement. Rotator cuff arthropathy of left shoulder 2017 Overview (05/27/2018): Added automatically from request for surgery [id number] Bicipital tendinitis, left 05/27/2018 Overview (05/27/2018): Added automatically from request for surgery [id number] Localized osteoarthritis of left shoulder 2017 Obstructive sleep apnea syndrome 03/21/2018 Myalgia 02/10/2018 Rotator cuff arthropathy, left 11/21/2017 Overview (11/21/2017): Added automatically from request for surgery [id number] Left bicipital tenosynovitis 11/21/2017 Overview (11/21/2017): Added automatically from request for surgery [id number] Cervicalgia 10/15/2017 Cervical radiculopathy 10/15/2017 Spondylosis of [...] (05/24/2021): Added automatically from request for surgery [id number] Assessment & Plan (06/16/2021 6:28 AM CDT): [...] Encounters Date Type Department Care Team Description 01/22/2025 Telephone [place] [employer] [address] [place] [phone] Nancy Catherine MA R/[facility] Denial 01/19/2025 Orders Only [place] [employer] [address] [place] [phone] Walter Yao MD Dyspnea on exertion (Primary Dx) 01/12/2025 10:00 AM CDT Office Visit [place] [employer] [address] [place] [phone] Walter Yao MD Diastolic dysfunction (Primary Dx); Mixed hyperlipidemia; Left anterior fascicular block; Dyspnea on exertion 01/05/2025 Telephone [place] [employer] [address] [place] [phone] Walter Yao MD 12/31/2024 8:28 AM CDT - 12/31/2024 11:59 PM CDT Hospital Encounter [facility] [address] [place] [address] Dyspnea, unspecified type Discharge Disposition: Discharge to home or self care 12/22/2024 8:25 AM CDT Lab [address] [phone] 12/17/2024 9:25 AM CDT Lab [address] [address] 12/12/2024 8:10 AM CDT Lab [address] [address] 12/11/2024 10:50 AM CDT [address] [phone] 12/08/2024 [place] [address] Gary Bergeron MD 12/07/2024 8:10 PM CDT - 12/07/2024 10:41 PM CDT Emergency [facility] Emergency Department [address] [place] [address] Rash (Primary Dx) Discharge Disposition: Discharge to [...] on file 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 Gender Identity Not on file Sexual Orientation [...] Completed 12/11/2024 Medical Devices Implanted Type Area Stone Sawyer Device Identifier Shelf Expiration Date Model / Serial / Lot Exactech 320-38-00 Equinoxe 38mm Reverse Shoulder +0mm Liner Humeral - [id number] - [id number] Implanted:Qty: 1 on 06/10/2018 by Steven Downs MD at [facility] Other - see comments Left: Shoulder Exactech 320-38-00 / [id number] / Exactech 320-01-38 38mm Glenosphere Reverse Shoulder Component Glenoid - [id number] - [id number] Implanted:Qty: 1 on 06/10/2018 by Steven Downs MD at [facility] Other - see comments Left: Shoulder Exactech 05/07/2028 320-01-38 / [id number] / Exactech 320-15-01 Equinoxe Reverse Shoulder Standard Plate Glenoid - [id number] - [id number] Implanted:Qty: 1 on 06/10/2018 by Steven Downs MD at [facility] Other - see comments Left: Shoulder Exactech 04/13/2028 320-15-01 / [id number] / Exactech 320-20-00 Reverse Torque Define Shoulder Kit Screw - [id number] - [id number] Implanted:Qty: 1 on 06/10/2018 by Steven Downs MD at [facility] Other - see comments Left: Shoulder Exactech 05/07/2023 320-20-00 / [id number] / Exactech 320-20-18 Equinoxe 4.5mm 18mm Kit Compression Lock Cap Reverse Shoulder - [id number] - [id number] Implanted:Qty: 1 on 06/10/2018 by Steven Downs MD at [facility] Other - see comments Left: Shoulder Exactech 01/14/2023 320-20-18 / [id number] / Exactech 320-10-00 Equinoxe Reverse Shoulder +0mm Tray Humeral Adapter - [id number] - [id number] Implanted:Qty: 1 on 06/10/2018 by Steven Downs MD at [facility] Other - see comments Left: Shoulder Exactech 04/07/2028 320-10-00 / [id number] / Exactech 300-30-08 Equinoxe 8mm 70mm Stem Humeral Sterile - [id number] - [id number] Implanted:Qty: 1 on 06/10/2018 by Steven Downs MD at [facility] Other - see comments Left: Shoulder Exactech 11/27/2027 300-30-08 / [id number] / Exactech 320-15-05 Equinoxe Lock Reverse Shoulder Glenosphere Screw Bone - [id number] - [id number] Implanted:Qty: 1 on 06/10/2018 by Steven Downs MD at [facility] Screw Left: Shoulder Exactech 06/08/2023 320-15-05 / [id number] / Exactech 320-20-38 Equinoxe 4.5mm 38mm Kit Compression Lock Cap Reverse Shoulder - [id number] - [id number] Implanted:Qty: 1 on 06/10/2018 by Steven Downs MD at [facility] Screw Left: Shoulder Exactech 01/08/2023 320-20-38 / [id number] / Exactech 320-20-18 Equinoxe 4.5mm 18mm Kit Compression Lock Cap Reverse Shoulder - [id number] - [id number] Implanted:Qty: 1 on 06/10/2018 by Steven Downs MD at [facility] Screw Left: Shoulder Exactech 03/22/2021 320-20-18 / [id number] / [employer] [id number] Attune 5mm Cruciate Retaining Rotate Platform Knee 8 Insert - [id number] Implanted:Qty: 1 on 06/02/2019 by Steven Downs MD at [facility] Left: Knee [employer] 04/08/2024 [id number] / / [id number] [employer] [id number] Attune Cruciate Retain Cementless Knee Left 8 Component Femoral - [id number] Implanted:Qty: 1 on 06/02/2019 by Steven Downs MD at [facility] Left: Knee [employer] 10/09/2027 [id number] / / [id number] [employer] [id number] Attune Cementless Rotate Platform Knee 8 Baseplate Tibial - [id number] Implanted:Qty: 1 on 06/02/2019 by Steven Downs MD at [facility] Left: Knee [employer] 06/08/2028 [id number] / / [id number] [employer] Attune Cruciate Retain Cementless Knee Right 8 Component Femoral [id number] - [id number] Implanted:Qty: 1 on 06/02/2024 by Steven Downs MD at [facility] Right: Knee [employer] [id number] 04/08/2034 [id number] / / [id number] [employer] Attune Fb Tib Base Sz 7 Por [id number] - [id number] Implanted:Qty: 1 on 06/02/2024 by Steven Downs MD at [facility] Right: Knee [employer] [id number] 03/08/2034 [id number] / / [id number] [employer] Insert Tibial Knee Fixed Rm Posterior Stabilized Attune 6mm Size 8 Polyethylene [id number] - [id number] Implanted:Qty: 1 on 06/02/2024 by Steven Downs MD at [facility] Right: Knee [employer] [id number] 02/06/2031 [id number] / / [id number] Explanted Type Area Stone Sawyer Device Identifier Shelf Expiration Date Model / Serial / Lot [employer] [id number] 6fr 24cm 145cm Radiopaque Positioner Filiform Flexible Tip - [id number] Implanted:Qty: 1 on 09/13/2022 by Kristie Mcfarland MD at [facility] Explanted:Qty: 1 on 09/21/2022 by Kristie Mcfarland MD Left: Ureter [employer] [id number] 12/05/2024 [id number] / / [id number] [employer] [id number] 6fr 24cm 145cm Radiopaque Positioner Filiform Flexible Tip - [id number] Implanted:Qty: 1 on 09/13/2022 by Kristie Mcfarland MD at [facility] Explanted:Qty: 1 on 09/21/2022 by Kristie Mcfarland MD Right: Ureter [employer] [id number] 12/05/2024 [id number] / / [id number] Procedures Procedure Name Priority Date/Time Associated Diagnosis [...] 11:00 AM CDT HEPATITIS PANEL, ACUTE Routine 11:00 AM CDT URINE CULTURE Routine 12/11/2024 [...] AUTO DIFFERENTIAL STAT 12/07/2024 9:48 PM CDT PSA SCREEN Routine 02/18/2024 8:12 AM CDT FLEXIBLE SIGMOIDOSCOPY 9:06 AM CDT COLONOSCOPY 03/10/2019 11:02 AM CDT from Last 3 Months or Most Recently Relevant to Health Maintenance Results * TRANSTHORACIC ECHO (TTE) COMPLETE W DOPPLER/CF WO CONTRAST (12/31/2024 9:39 AM CDT) LV EF 65 % CONS SCIMAGE Anatomical Region Laterality Modality Ultrasound 12/31/2024 9:04 AM CDT Narrative 12/31/2024 2:24 PM CDT [address] , [place] [address] Echocardiogram Report Patient Name: CINTHIA VOSS : 1950 Study Date: 12/31/2024 9:04:18 AM Gender: M Tech: CAROL Location: Echo Lab 2 Ref Provider: FRANKLYN NOLE Height(Cm): BSA: Weight(Kg): Quality: Adequate Order Provider: [...] Procedure Note Callum Elias MD - 12/31/[address] [place] [address] Echocardiogram Report Patient Name: CINTHIA VOSS : [...] revised on 2020. Testing performed by: [facility], [address] [place]., [address] Blood 12/22/2024 8:31 AM CDT 12/22/2024 2:28 PM CDT Gary Bergeron MD LAB BLOOD ORDERABLES Final Resu lt Performing Organization Address 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 Co de Phone Number [facility] 1 [facility] [place] [address] * Anti-double stranded DNA abs (12/22/2024 8:31 AM CDT) Pathologist [facility] dsDNA Ab <1.0 <=4.0 IUnits/mL Comment: Interpretive Data Negative: < or = 4 IUnits/mL Indeterminate: 5 - 9 IUnits/mL Positive: > or = 10 IUnits/mL Current interpretive data was last revised on 2017. Testing performed by: [facility], [address] [place]., [address] Blood 12/22/2024 8:31 AM CDT 12/22/2024 2:28 PM CDT Narrative ASHLYN [facility] ([place]) - 12/23/2024 10:57 AM CDT [id number] Gary Bergeron MD LAB BLOOD ORDERABLES Final Resu lt Performing Organization Address 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 Co de Phone Number [facility] [place] 1 [facility] [place] [address] * (ABNORMAL) Urinalysis reflex to microscopic and culture Urine (12/17/2024 9:27 AM CDT) Color, ur Dark-Yellow Clarity, ur Turbid(A) Clear [facility] Conrad ([place]) Specific gravity, ur 1.026 1.003 - 1.030 [...] tendency for uric acid stone formation. Source: [facility] [employer] Current Interpretive Data was last revised on [...] us Ever Gr MD LAB MICROBIOLOGY - [facility] AL ORDERABLES Final Result [facility] ([place]) 1 [facility] Department [place] [address] * (ABNORMAL) Urinalysis, microscopic only (12/17/2024 9:27 AM CDT) WBC, ur 21-50(A) 0 - 5 /HPF RBC, ur >50(A) 0 - 2 /HPF [facility] ([place]) Epithelial cells, squamous, ur 1-5 0 - 5 /HPF [facility] ([place]) Mucous, ur Present(A) [facility] ([place]) Culture Reflex Comment Reflex to urine culture will be performed. [facility] ([place]) Urine 12/17/2024 9:27 AM CDT 12/17/2024 10:41 AM CDT Ever Gr MD LAB URINE ORDERABLES Fin al Result Performing Organization Address 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 Co de Phone Number [facility] SHAY ([place]) [address] [place] [address] * Urine culture Urine (12/17/2024 9:27 AM CDT) Report Final Report: Less than 100,000 colonies/mL (clinically insignificant growth based on current clinical standards) Comment:Testing performed by : [facility], 1 [place] [address] Organism (CLINICALLY INSIGNIFICANT GROWTH A[facility]N SHAY ([place]) Urine 12/17/2024 9:27 AM CDT 12/17/2024 3:34 PM CDT Narrative [facility] SHAY ([place]) - 12/19/2024 7:41 AM CDT Urine culture reflexed based upon urinalysis results. Testing performed by [facility] Microbiology Laboratory ([phone]) Ever Gr MD LAB MICROBIOLOGY - GENER AL ORDERABLES Final Result Performing Organization Address [facility] de Phone Number [facility] SHAY ([place]) [address] [place] [address] * Cryoglobulin, serum only (12/12/2024 8:12 AM CDT) Cryoglobulin, quant See Comment Negative [facility] Comment: Negative. The quantity of serum submitted and received is not sufficient to reliably rule out the presence of a cryoglobulin. Suggest submitting a serum sample of at least 2.0 - 2.5 mL. Test Performed by: [facility] [address] [place] [address] Occupational Therapy Teacher: Emerald Solares Ph.D.; CLIA# [id number] Blood 12/12/2024 8:12 AM CDT 12/12/2024 8:17 AM CDT Ever Gr MD LAB BLOOD ORDERABLES Fin al Result Performing Organization Address City/[facility]/ZIP Co de Phone Number A[facility]N SHAY ([place]) 1 [facility] [place] [place] [address] [facility] * HIV 1/2 Antibody plus p24 Antigen Blood (12/11/2024 11:00 AM CDT) HIV 1/2 ab + p24 ag Nonreactive Nonreactive Comment: Nonreactive for HIV-1 antigen and HIV-1/HIV-2 antibodies. No laboratory evidence of HIV infection. If acute HIV infection is suspected, consider testing for HIV-1 RNA. Testing performed by: [facility], [address] [place] [address], [address] Blood 12/11/2024 11:0 0 AM CDT 12/11/2024 7:15 PM CDT Ever Gr MD LAB MICROBIOLOGY - GENER AL ORDERABLES Final Result Performing Organization Address 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 Co de Phone Number [facility] SHAY ([place]) 1 [facility] [place] [address] * (ABNORMAL) Urinalysis reflex to microscopic (12/11/2024 11:00 AM CDT) Color, ur Dark-Yellow Clarity, ur Clear Clear [facility] Conrad ([place]) Specific gravity, ur 1.024 1.003 - 1.030 [facility] ([place]) pH, urine 5.5 [facility] ([place]) Comment: Interpretive Data U rine pH is affected by diet, medications, systemic acid-base disturbances, and renal tubular function. pH may affect urinary stone formation. For example, urine pH below 6.0 may help reduce the tendency for calcium phosphate stones and pH greater than 6.0 may reduce the tendency for uric acid stone formation. Source: [facility] [employer] Current Interpretive Data was last revised on [...] to microscopic UA will be performed. [facility] ([place]) Urine 12/11/2024 11:0 0 AM CDT 12/11/2024 11:16 AM CDT us Ever Gr MD LAB URINE ORDERABLES Fin al Result ASHLYN [facility] ([place]) 1 [facility] Department [place] [address] * Hepatitis panel, acute Blood (12/11/2024 11:00 AM CDT) Hep A IgM Nonreactive Nonreactive Comment: Interpretive Data: If Hep A IgM Ab is reported as Equivocal, a new sample should be drawn in two weeks for testing. Current interpretive data was last revised on 19. Testing performed by: [address] [address] Hep B core IgM Nonreactive Nonreactive [facility] ([place]) Comment: Interpretive Data If HepB Core IgM Ab is reported as Equivocal, a new sample should be drawn in two weeks for testing. Current interpretive data was last revised on 19. Testing performed by: [address] [address] Hep C Ab Nonreactive Nonreactive [facility] ([place] Comment: Interpretive Data Nonreactive: Antibodies to [...] last revised on 2019. Testing performed by: [facility], [address] [place] [address], [place]., [address] HepBsAg Nonreactive Nonreactive ASH[facility]N [facility] ([place]) Comment:Testing performed by : [facility], [address] [place] [address]., [address] Blood 12/11/2024 11:0 0 AM CDT 12/11/2024 4:22 PM CDT us Ever Gr MD LAB MICROBIOLOGY - GENER AL ORDERABLES Final Result Performing Organization Address 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 Co de Phone Number ASHLYN [facility] ([place]) 1 [facility] [place] [address] * (ABNORMAL) Urinalysis, microscopic only (12/11/2024 11:00 AM CDT) WBC, ur 6-10(A) 0 - 5 /HPF RBC, ur >50(A) 0 - 2 /HPF [facility] ([place]) Epithelial cells, squamous, ur 1-5 0 - 5 /HPF [facility] ([place]) Mucous, ur Present(A) [facility] ([place]) Urine 12/11/2024 11:0 0 AM CDT 12/11/2024 11:16 AM CDT us Ever Gr MD LAB URINE ORDERABLES Fin al Result Performing Organization Address 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 Co de Phone Number ASHLNY [facility] ([place]) 1 [facility] [place] [place] [address] * Urine culture Urine (12/11/2024 11:00 AM CDT) Report Final Report: Less than 100,000 colonies/mL (clinically insignificant growth based on current clinical standards) Comment:Testing performed by : [facility], 1 [place] [address] Organism (CLINICALLY INSIGNIFICANT GROWTH ASHLYN [facility] ([place]) Urine 12/11/2024 11:0 0 AM CDT 12/11/2024 2:10 PM CDT Narrative ASHLYN MOLINA) - 12/13/2024 10:27 AM CDT Testing performed by [facility] Microbiology Laboratory ([phone]) us Ever Gr MD LAB MICROBIOLOGY - GENER AL ORDERABLES Final Result ASHLYN MOLINA) 1 [facility] Department of Laboratories [place], [place] [id number] * Surgical pathology (12/08/2024 12:00 AM CDT) Skin, shave biopsy 12/08/2024 12/09/2024 12:12 PM CDT Narrative 12/17/2024 9:39 PM CDT EPIC results best viewed via link to PDF [facility] [address] [place] [address], [address], [place] [address] [email or web address] Note to Patients: This report may [...] Physician Information: Dr. Gary Bergeron M.D. [address] [facility], [address] [place] [address], [phone] DERMATOPATHOLOGY REPORT RESULTS DIAGNOSIS: SKIN, LEFT DISTAL [...] time of procedure. sxt/mat Clerical Data A; [address], [address] The characteristics of special, immunohistochemical, and immunofluorescence stains and in-situ hybridization tests performed by the [facility] were deemed acceptable in ongoing quality assurance analyst measures and in compliance with regulations drawn from the Clinical Laboratory Improvement Act an2878 (CLIA '88). Control reactions for all stains performed were deemed adequate and appropriate by a pathologist prior to evaluation of patient tissue. Some diagnoses were rendered with the assistance of laboratory-developed tests utilizing analyte-specific reagents; the performance characteristic of these tests were determined by [facility] and are not cleared or approved by the [place] Food an Drug administration. Laboratory developed test may only be performed in a facility that is certified by the [facility] as a high-complexity laboratory under CLIA '88. These tests are used for clinical purposes and are not investigational. us Gary Bergeron MD LAB PATHOLOGY ORDERABLES Final Result * Sepsis Lactate w/ Reflex (12/07/2024 9:48 PM CDT) Sepsis Lactate 1.0 0.7 - 2.0 mmol/L Blood 12/07/2024 9:48 PM CDT 12/07/2024 9:51 PM CDT Cecile MORAES LAB BLOOD ORDERABLES Final Resu lt [facility] ([place]) 1 [facility] [place] [place] [address] * eGFR (12/07/2024 9:48 PM CDT) eGFR [...] lt [facility] ([place]) 1 [facility] [place] [address] * (ABNORMAL) Differential, auto (12/07/2024 9:48 PM [...] lt [facility] ([place]) 1 [facility] [employer] [place] [place] [address] * (ABNORMAL) CBC with auto differential (12/07/2024 [...] lt [facility] ([place]) 1 [facility] [employer] [place] [place] [address] * (ABNORMAL) Comprehensive metabolic panel (12/07/2024 9:48 PM CDT) Sodium 136 135 - 145 mmol/L Potassium, pl 4.0 3.3 - 4.9 mmol/L [facility] ([place]) Chloride 101 97 - 110 mmol/L CERNER [...] classification and Diagnosis of Diabetes Diabetes Care 2021; 46: S19-S40. Current interpretive data was last revised 2022. Calcium 10.2 8.5 - 10.3 mg/dL [facility] ([place]) Bilirubin, total 0.8 0.1 - 1.2 mg/dL [facility] ([place]) Protein, pl 6.9 6.5 - 8.5 g/dL [facility] [place]) Albumin 4.3 3.5 - 5.0 g/dL [facility] [place]) Alk phos 73 40 - 130 Units/L [facility] [place] ALT 68(H) 7 - 55 Units/L [facility] [place]) AST 44 10 - 50 Units/L [facility] [place]) Blood 12/07/2024 9:48 PM CDT 12/07/2024 9:51 PM CDT us Cecile MORAES LAB BLOOD ORDERABLES Final Resu lt [facility] SHAY [place]) 1 [facility] [place] [address] * PSA screen (02/18/2024 8:12 AM CDT) [...] 8:12 AM CDT 02/18/2024 10:05 AM CDT Ever Gr MD LAB BLOOD ORDERABLES Fin al Result Performing Organization Address 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 Co de Phone Number [facility]SH[facility]N SHAY [place]) 1 [facility] [place] [address] * FLEXIBLE SIGMOIDOSCOPY (04/24/2021 9:06 AM CDT) Anatomical Region Laterality Modality Other Narrative Procedure Note Rosa Maria Nielsen MD - 04/24/2021 9:06 AM CDT [facility] Patient Name: Cinthia Voss Procedure Date: 04/24/2021 9:06 AM Date of : 1950 Admit Type: Inpatient Age: 70 Gender: Male Attending MD: Rosa Maria Nielsen M.D. Room: [facility] ENDOSCOPY ROOM 1 Note Status: Finalized Patient [...] passed under direct vision. The Endoscope [id number]-[id number] was introduced through the anus and advanced [...] 9:06 AM Procedure Code(s): --- Professional --- 50772, Sigmoidoscopy, flexible; diagnostic, including collection of specimen(s) by brushing or washing, when performed (separateprocedure) Diagnosis Code(s): --- Professional --- R93.3, Abnormal findings on diagnostic imaging of other parts of digestive tract CPT copyright 2019 [employer]. All rights reserved. The codes documented in this report are preliminary and upon auger press operator reviewmay be revised to meet current compliance requirements. Recognized by the [employer] for promoting quality in endoscopy Rosa Maria Nielsen MD ENDOSCOPY PROCEDURES Final Result * COLONOSCOPY (03/10/2019 11:02 AM CDT) Anatomical Region Laterality Modality Other Narrative Procedure Note Rosa Maria Nielsen MD - 03/10/2019 11:02 AM CDT [facility] Patient Name: Cinthia Voss Procedure Date: 03/10/2019 11:02 AM Date of : 1950 Admit Type: Outpatient Age: 68 Gender: Male Attending MD: Rosa Maria Nielsen M.D. Room: [facility] ENDOSCOPY ROOM 1 Note Status: Finalized Patient [...] passed under direct vision.The Pediatric Colonoscope [id number]-[id number] was used initially but then replaced with [...] 11:02 AM Procedure Code(s): --- Professional --- 13351, 52, Colonoscopy, flexible; diagnostic, including collection of [...] parts of digestive tract CPT copyright 2017 [employer]. All rights reserved. The codes documented in this report are preliminary and upon auger press operator reviewmay be revised to meet current compliance requirements. Recognized by the [employer] for promoting quality in endoscopy Rosa Maria Nielsen MD ENDOSCOPY PROCEDURES Final Result from Last 3 Months or Most Recently Relevant to Health Maintenance Insurance [facility] PPO MEDICARE [facility] Address: [address] [address] [place] [address] [facility] MEDICARE [facility] HMO/POS MEDICARE [facility] Address: [address] [address] [place] [address] [facility] [employer] [place] HMO/POS Advance Directives For more information, please contact: [phone] Documents on File Type Date Recorded Patient Check Writer Expl anation ADVANCE DIRECTIVE 03/10/2018 6:52 PM [...] 10:16 AM 03/10/2019 6:35 PM Care Teams Route Delivery Service Driver Relationship Specialty Start Date End Date Ever Gr MD [address] [place] [address] [place] [address] PCP - General Internal Medicine 04/24/18 Jack Washington MD [address] [place] [address] [place] [address] Consulting Physician Infectious Diseases 04/26/21 Ever Gaspar MD [address] [place] [address] [place] [address] Surgeon General Surgery 04/26/21 Matt Martinez NP [address] [place] [address] [address] [place] [address] Nurse Practitioner Orthopedic Surgery 06/03/24
--- OUTSIDE RECORDS SUMMARY | 2025-01-29 00:54 | XMS_ITS | Referral Summary ---
Author Organization [facility] Address [address] [place] [address] Care Team Providers Care Hot Stamp Operator Name Role Phone Ever Gr MD Primary Care Provider + Jack Washington MD Unavailable [phone]- [phone] Ever Gaspar MD Unavailable + -[phone] Matt Martinez NP Unavailable [phone] Encounters Date Type Department Care Team Description 01/22/2025 Telephone [place] [employer] Purchasing Agent [address] [place] [phone] Nancy Catherine MA /[facility] Denial 01/19/2025 Orders Only [place] [employer] Purchasing Agent [address] [place] [phone] Walter Yao MD Dyspnea on exertion (Primary Dx) 01/12/2025 10:00 AM CDT Office Visit [place] [employer] For [employer] Purchasing Agent [address] [place] [phone] Walter Yao MD Diastolic dysfunction (Primary Dx); Mixed hyperlipidemia; Left anterior fascicular block; Dyspnea on exertion 01/05/2025 Telephone [place] [employer]and[employer] For Res[employer] Purchasing Agent [address] [place] [phone] Walter Yao MD 12/31/2024 8:28 AM CDT - 12/31/2024 11:59 PM CDT Hospital Encounter [facility] [address] [place] [id number] Dyspnea, unspecified type Discharge Disposition: Discharge to home or self care 12/22/2024 8:25 AM CDT [address] [phone] 12/17/2024 9:25 AM CDT [address] [address] 12/12/2024 8:10 AM CDT [address] [address] 12/11/2024 10:50 AM CDT [address] [phone] 12/08/2024 Orders Only [facility] [address] [address] Gary Bergeron MD 12/07/2024 8:10 PM CDT - 12/07/2024 10:41 PM CDT Emergency [facility] Emergency Department [address] [place] [phone] Rash (Primary Dx) Discharge Disposition: Discharge to [...] (08/08/2022): Added automatically from request for surgery [id number] Kidney stone 08/08/2022 Overview (08/08/2022): Added automatically from request for surgery [id number] High cholesterol 07/27/2022 Other chest pain 04/03/2022 [...] (05/14/2019): Added automatically from request for surgery [id number] Abnormal CT scan 02/16/2019 Overview (02/16/2019): Added automatically from request for surgery [id number] Abnormal feces 02/16/2019 Overview (02/16/2019): Added automatically from request for surgery [id number] Chronic pain of left knee 08/27/2018 Arthritis of left knee 08/27/2018 Acute medial meniscus tear of left knee 08/27/20 18 Preoperative evaluation to r ule out surgical contraindication 06/11/2018 Assessment & Plan (04/28/2024 9:03 AM CDT): The patient is cleared for the proposed total knee replacement. Rotator cuff arthropathy of left shoulder 2017 Overview (05/27/2018): Added automatically from request for surgery [id number] Bicipital tendinitis, left 05/27/2018 Overview (05/27/2018): Added automatically from request for surgery [id number] Localized osteoarthritis of left shoulder 2017 Obstructive sleep apnea syndrome 03/21/2018 Myalgia 02/10/2018 Rotator cuff arthropathy, left 11/21/2017 Overview (11/21/2017): Added automatically from request for surgery [id number] Left bicipital tenosynovitis 11/21/2017 Overview (11/21/2017): Added automatically from request for surgery [id number] Cervicalgia 10/15/2017 Cervical radiculopathy 10/15/2017 Spondylosis of [...] (05/24/2021): Added automatically from request for surgery [id number] Assessment & Plan (06/16/2021 6:28 AM CDT): [...] on file 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 Gender Identity Not on file Sexual Orientation [...] on file Medical Devices Implanted Type Area Time Study Technologist Device Identifier Shelf Expiration Date Model / Serial / Lot Exactech 32038 Equinoxe 38mm Reverse Shoulder +0mm Liner Humeral - [id number] - [id number] Implanted:Qty: 1 on 06/10/2018 by Steven Downs MD at [facility] Other - see comments Left: Shoulder Exactech 32038- / [id number] / Exactech 32038 38mm Glenosphere Reverse Shoulder Component Glenoid - [id number] - [id number] Implanted:Qty: 1 on 06/10/2018 by Steven Downs MD at [facility] Other - see comments Left: Shoulder Exactech 05/07/2028 32038 / [id number] / Exactech 32015- Equinoxe Reverse Shoulder Standard Plate Glenoid - [id number] - [id number] Implanted:Qty: 1 on 06/10/2018 by Steven Downs MD at [facility] Other - see comments Left: Shoulder Exactech 04/13/2028 32015- / [id number] / Exactech 320-20-00 Reverse Torque Define Shoulder Kit Screw - [id number] - [id number] Implanted:Qty: 1 on 06/10/2018 by Steven Downs MD at [facility] Other - see comments Left: Shoulder Exactech 05/07/2023 320-20-00 / [id number] / Exactech 32020-18 Equinoxe 4.5mm 18mm Kit Compression Lock Cap Reverse Shoulder - [id number] - [id number] Implanted:Qty: 1 on 06/10/2018 by Steven Downs MD at [facility] Other - see comments Left: Shoulder Exactech 01/14/2023 320-20-18 / [id number] / Exactech 320-10-00 Equinoxe Reverse Shoulder +0mm Tray Humeral Adapter - [id number] - [id number] Implanted:Qty: 1 on 06/10/2018 by Steven Downs MD at [facility] Other - see comments Left: Shoulder Exactech 04/07/2028 320-10-00 / [id number] / Exactech 300-30-08 Equinoxe 8mm 70mm Stem Humeral Sterile - [id number] - [id number] Implanted:Qty: 1 on 06/10/2018 by Steven Downs MD at [facility] Other - see comments Left: Shoulder Exactech 11/27/2027 300-30-08 / [id number] / Exactech 320-15-05 Equinoxe Lock Reverse Shoulder Glenosphere Screw Bone - [id number] - [id number] Implanted:Qty: 1 on 06/10/2018 by Steven Downs MD at [facility] Screw Left: Shoulder Exactech 06/08/2023 320-15-05 / [id number] / Exactech 320-20-38 Equinoxe 4.5mm 38mm Kit Compression Lock Cap Reverse Shoulder - [id number] - [id number] Implanted:Qty: 1 on 06/10/2018 by Steven Downs MD at [facility] Screw Left: Shoulder Exactech 01/08/2023 320-20-38 / [id number] / Exactech 320-20-18 Equinoxe 4.5mm 18mm Kit Compression Lock Cap Reverse Shoulder - [id number] - [id number] Implanted:Qty: 1 on 06/10/2018 by Steven Downs MD at [facility] Screw Left: Shoulder Exactech 03/22/2021 320-20-18 / [id number] / [employer] [id number] Attune 5mm Cruciate Retaining Rotate Platform Knee 8 Insert - [id number] Implanted:Qty: 1 on 06/02/2019 by Steven Downs MD at [facility] Left: Knee [employer] 04/08/2024 [id number] / / [id number] [employer] [id number] Attune Cruciate Retain Cementless Knee Left 8 Component Femoral - [id number] Implanted:Qty: 1 on 06/02/2019 by Steven Downs MD at [facility] Left: Knee [employer] 10/09/2027 [id number] / / [id number] [employer] [id number] Attune Cementless Rotate Platform Knee 8 Baseplate Tibial - [id number] Implanted:Qty: 1 on 06/02/2019 by Steven Downs MD at [facility] Left: Knee [employer] 06/08/2028 [id number] / / [id number] [employer] Attune Cruciate Retain Cementless Knee Right 8 Component Femoral [id number] - [id number] Implanted:Qty: 1 on 06/02/2024 by Steven Downs MD at [facility] Right: Knee [employer] [id number] 04/08/2034 [id number] / / [id number] [employer] Attune Fb Tib Base Sz 7 Por [id number] - [id number] Implanted:Qty: 1 on 06/02/2024 by Steven Downs MD at [facility] Right: Knee [employer] [id number] 03/08/2034 [id number] / / [id number] [employer] Insert Tibial Knee Fixed Rm Posterior Stabilized Attune 6mm Size 8 Polyethylene [id number] - [id number] Implanted:Qty: 1 on 06/02/2024 by Steven Downs MD at [facility] Right: Knee [employer] [id number] 02/06/2031 [id number] / / [id number] Explanted Type Area Time Study Technologist Device Identifier Shelf Expiration Date Model / Serial / Lot [employer] [id number] 6fr 24cm 145cm Radiopaque Positioner Filiform Flexible Tip - [id number] Implanted:Qty: 1 on 09/13/2022 by Kristie Mcfarland MD at [facility] Explanted:Qty: 1 on 09/21/2022 by Kristie Mcfarland MD Left: Ureter [employer] [id number] 12/05/2024 [id number] / / [id number] [employer] [id number] 6fr 24cm 145cm Radiopaque Positioner Filiform Flexible Tip - [id number] Implanted:Qty: 1 on 09/13/2022 by Kristie Mcfarland MD at [facility] Explanted:Qty: 1 on 09/21/2022 by Kristie Mcfarland MD Right: Ureter [employer] [id number] 12/05/2024 [id number] / / [id number] Procedures Procedure Name Priority Date/Time Associated Diagnosis [...] AM CDT Narrative 12/31/2024 2:24 PM CDT [address] [address] Echocardiogram Report Patient Name: CINTHIA VOSS : [...] Procedure Note Callum Elias MD - 12/31/2024 [place] [id number] Echocardiogram Report Patient Name: CINTHIA VOSS : [...] last revised on 2020. Testing performed by: [facility], [address] [place] [address] Blood 12/22/2024 8:31 AM CDT 12/22/2024 2:28 PM CDT us Gary Bergeron MD LAB BLOOD ORDERABLES Final Resu lt [facility] ([place]) 1 [facility] Department [place] [address] * Anti-double stranded DNA abs (12/22/2024 8:31 AM CDT) dsDNA Ab <1.0 <=4.0 IUnits/mL Comment: Interpretive Data Negative: < or = 4 IUnits/mL Indeterminate: 5 - 9 IUnits/mL Positive: > or = 10 IUnits/mL Current interpretive data was last revised on 2017. Testing performed by: [facility], [address] [place]., [address] Blood 12/22/2024 8:31 AM CDT 12/22/2024 2:28 PM CDT Narrative [facility] ([place]) - 12/23/2024 10:57 AM CDT [id number] us Gary Bergeron MD LAB BLOOD ORDERABLES Final Resu lt [facility] ([place]) 1 [facility] Department [place] [address] * (ABNORMAL) Urinalysis reflex to microscopic and [...] tendency for uric acid stone formation. Source: [employer] Current Interpretive Data was last revised on 2017 Protein, ur ql 1+(A) Negative [facility] ([place]) Glucose, ur ql Negative Negative [facility] ([place]) Ketones, ur Negative Negative [facility] ([place]) Bilirubin, ur Negative Negative [facility] ([place] Blood, ur 3+(A) Negative [facility] [place]) Urobilinogen, ur <2.0 <2.0 mg/dL [facility] ([place]) Nitrite, ur Negative Negative [facility] ([place]) Leukocyte esterase, ur 2+(A) Negative [facility] ([place]) UA reflex comment Reflex to microscopic UA will be performed. [facility] ([place]) Urine 12/17/2024 9:27 AM CDT 12/17/2024 10:41 AM CDT Ever Gr MD LAB MICROBIOLOGY - GENER AL ORDERABLES Final Result Performing Organization Address [facility] de Phone Number [facility]N [facility] ([place]) 1 [facility] [place] [address] * (ABNORMAL) Urinalysis, microscopic only (12/17/2024 9:27 AM CDT) WBC, ur 21-50(A) 0 - 5 /HPF RBC, ur >50(A) 0 - 2 /HPF [facility] ([place]) Epithelial cells, squamous, ur 1-5 0 - 5 /HPF [facility] ([place]) Mucous, ur Present(A) [facility] ([place]) Culture Reflex Comment Reflex to urine culture will be performed. [facility] ([place]) Urine 12/17/2024 9:27 AM CDT 12/17/2024 10:41 AM CDT us Ever Gr MD LAB URINE ORDERABLES Fin al Result Performing Organization Address [facility] Co de Phone Number XUSYD [facility] ([place]) 1 [facility] [place] [address] * Urine culture Urine (12/17/2024 9:27 AM CDT) Report Final Report: Less than 100,000 colonies/mL (clinically insignificant growth based on current clinical standards) Comment:Testing performed by : [facility], 1 [facility], [place]., [address] Organism (CLINICALLY INSIGNIFICANT GROWTH [facility]N [facility] ([place]) Urine 12/17/2024 9:27 AM CDT 12/17/2024 3:34 PM CDT Narrative [facility] ([place]) - 12/19/2024 7:41 AM CDT Urine culture reflexed based upon urinalysis results. Testing performed by [facility] Micro[facility] Laboratory ([phone]) Ever Gr MD LAB MICROBIOLOGY - GENER AL ORDERABLES Final Result Performing Organization Address [facility] Co de Phone Number [facility] ([place]) [address] [place] [address] * Cryoglobulin, serum only (12/12/2024 8:12 AM CDT) Cryoglobulin, quant See Comment Negative [place] ref Lab Comment: Negative. The quantity of serum submitted and received is not sufficient to reliably rule out the presence of a cryoglobulin. Suggest submitting a serum sample of at least 2.0 - 2.5 mL. Test Performed by: [facility] [address] [place] [address] Network Operations Technician: Emerald Solares Ph.D.; CLIA# [id number] Blood 12/12/2024 8:12 AM CDT 12/12/2024 8:17 AM CDT Ever Gr MD LAB BLOOD ORDERABLES Fin al Result Performing Organization Address [facility] Co de Phone Number [facility] ([place]) [address] [place] [address] [facility] * HIV 1/2 Antibody plus p24 Antigen Blood (12/11/2024 11:00 AM CDT) HIV 1/2 ab + p24 ag Nonreactive Nonreactive Comment: Nonreactive for HIV-1 antigen and HIV-1/HIV-2 antibodies. No laboratory evidence of HIV infection. If acute HIV infection is suspected, consider testing for HIV-1 RNA. Testing performed by: [facility], [address] [place] [address], [place]., [address] Blood 12/11/2024 11:0 0 AM CDT 12/11/2024 7:15 PM CDT us Ever Gr MD LAB MICROBIOLOGY - GENER AL ORDERABLES Final Result [facility] ([place]) 1 [facility] Department [place] [address] * (ABNORMAL) Urinalysis reflex to microscopic (12/11/2024 [...] tendency for uric acid stone formation. Source: [facility] [employer] Current Interpretive Data was last revised on [...] Fin al Result [facility] ([place]) 1 [facility] Department [place] [address] * Hepatitis panel, acute Blood (12/11/2024 11:00 AM CDT) Hep A IgM Nonreactive Nonreactive Comment: Interpretive Data: If Hep A IgM Ab is reported as Equivocal, a new sample should be drawn in two weeks for testing. Current interpretive data was last revised on 19. Testing performed by: [address] [address] Hep B core IgM Nonreactive Nonreactive C EDWARD [facility] ([place]) Comment: Interpretive Data If HepB Core IgM Ab is reported as Equivocal, a new sample should be drawn in two weeks for testing. Current interpretive data was last revised on 19. Testing performed by: [address] [address] Hep C Ab Nonreactive Nonreactive A[facility]N SHAY [...] last revised on 2019. Testing performed by: [address] [address] HepBsAg Nonreactive Nonreactive [facility] ([place]) Comment:Testing performed by : [address] [address] Blood 12/11/2024 11:0 0 AM CDT 12/11/2024 4:22 PM CDT us Ever Gr MD LAB MICROBIOLOGY - [facility] AL ORDERABLES Final Result [facility]N [facility]AL ([place]) 1 [facility] Department [place] [address] * (ABNORMAL) Urinalysis, microscopic only (12/11/2024 11:00 [...] ORDERABLES Fin al Result Performing Organization Address City/[facility]/ZIP Co de Phone Number ASHLYN [facility] ([place]) 1 [facility] [place] [place] [address] * Urine culture Urine (12/11/2024 11:00 AM CDT) Report Final Report: Less than 100,000 colonies/mL (clinically insignificant growth based on current clinical standards) Comment:Testing performed by : [facility], [address] [place] [address] Organism (CLINICALLY INSIGNIFICANT GROWTH [facility]ER [facility] ([place]) Urine 12/11/2024 11:0 0 AM CDT 12/11/2024 2:10 PM CDT Narrative [facility] ([place]) - 12/13/2024 10:27 AM CDT Testing performed by [facility]biology Laboratory ([phone]) Ever Gr MD LAB MICROBIOLOGY - GENER AL ORDERABLES Final Result Performing Organization Address City/[facility]/ZIP Co de Phone Number [facility] 1 [facility] [place] [address] * Surgical pathology (12/08/2024 12:00 AM CDT) Skin, shave biopsy 12/08/2024 12/09/2024 12:12 PM CDT Narrative 12/17/2024 9:39 PM CDT EPIC results best viewed via link to PDF [facility] [address], [place] [address] [email or web address] Note to Patients: This report may contain [...] Submitting Physician Information: Dr. Gary Bergeron M.D. [facility]4 [facility], [address] [place] [address], [phone] DERMATOPATHOLOGY REPORT RESULTS DIAGNOSIS: SKIN, LEFT DISTAL [...] time of procedure. sxt/mat Clerical Data A; [address], [address] The characteristics of special, immunohistochemical, and immunofluorescence stains and in-situ hybridization tests performed by the [facility] were deemed acceptable in ongoing quality lead measures and in compliance with regulations drawn from the Clinical Laboratory Improvement Act pa7430 (CLIA '88). Control reactions for all stains performed were deemed adequate and appropriate by a pathologist prior to evaluation of patient tissue. Some diagnoses were rendered with the assistance of laboratory-developed tests utilizing analyte-specific reagents; the performance characteristic of these tests were determined by [facility] and are not cleared or approved by the [place] Food an Drug administration. Laboratory developed test may only be performed in a facility that is certified by the [facility] as a high-complexity laboratory under CLIA '88. These tests are used for clinical purposes and are not investigational. Gary Bergeron MD LAB PATHOLOGY ORDERABLES Final Result * Sepsis Lactate w/ Reflex (12/07/2024 9:48 PM CDT) Pathologist [facility] Sepsis Lactate 1.0 0.7 - 2.0 mmol/L Blood 12/07/2024 9:48 PM CDT 12/07/2024 9:51 PM CDT Cecile MORAES LAB BLOOD ORDERABLES Final Resu lt [facility] ([place]) 1 [facility] Department [place] [address] * eGFR (12/07/2024 9:48 PM [...] LAB BLOOD ORDERABLES Final Resu lt ASHLYN [facility] ([place]) 1 [facility] Department [place] [address] * (ABNORMAL) Differential, auto (12/07/2024 9:48 PM [...] revised on 2017. Monocyte pct 6.4 % [facility] ([place]) Comment: Interpretive Data Percent cell [...] revised on 2017. Basophil pct 0.4 % [facility] ([place]) Comment: Interpretive Data Percent cell count reference ranges are not reported, since discordance with absolute values may lead to misinterpretation of CBC data. Current Interpretive Data was last revised on 2017. Blood 12/07/2024 9:48 PM CDT 12/07/2024 9:51 PM CDT us Cecile MORAES LAB BLOOD ORDERABLES Final Resu lt [facility] ([place]) 1 [facility] Department of Laboratories [place], [place] [id number] * (ABNORMAL) CBC with auto differential (12/07/2024 9:48 PM CDT) WBC 14.1(H) 3.8 - 9.9 K/cumm Hgb 16.1 13.0 - 17.5 g/dL [facility] ([place]) Hct 47.0 38.9 - 50.3 % [...] NRBC abs 0.00 0.00 - 0.01 K/cumm [facility] Blood 12/07/2024 9:48 PM CDT 12/07/2024 9:51 PM CDT us Cecile MORAES LAB BLOOD ORDERABLES Final Resu lt [facility] ([place]) 1 [facility] Department [place] [address] * (ABNORMAL) Comprehensive metabolic panel (12/07/2024 9:48 PM CDT) Sodium 136 135 - 145 mmol/L Potassium, pl 4.0 3.3 - 4.9 mmol/L [facility] Chloride 101 97 - 110 mmol/L [facility] ([place]) CO2 24 22 - 32 mmol/L [facility] [place]) Anion gap 11 2 - 15 mmol/L [facility] [place] BUN 12 6 - 25 mg/dL [facility] [place] Creatinine 1.15 0.80 - 1.30 mg/dL [facility] ([place]) Glucose 123 70 - 199 mg/dL [facility] ([place] Comment: Interpretive Data Fasting glucose [...] Final Resu lt [facility] ([place]) 1 [facility] Department [place] [address] * PSA screen (02/18/2024 8:12 AM CDT) [...] LAB BLOOD ORDERABLES Fin al Result [facility] [place] [address] Department [place] [address] * FLEXIBLE SIGMOIDOSCOPY (04/24/2021 9:06 AM CDT) Anatomical Region Laterality Modality Other Narrative Procedure Note Rosa Maria Nielsen MD - 04/24/2021 9:06 AM CDT [facility] Patient Name: Cinthia Voss Procedure Date: 04/24/2021 9:06 AM Date of : 1950 Admit Type: Inpatient Age: 70 Gender: Male Attending MD: Rosa Maria Nielsen M.D. Room: [facility] ENDOSCOPY ROOM 1 Note Status: Finalized Patient Profile: This is a 70 year old male. Patient admitted withthe rectal pain and left lower quadrant pain. CT showed perirectal abscess and questionable mass lesions inside the rectum. Limited sigmoidoscopy forevaluation Procedure: Flexible Sigmoidoscopy Indications: Last colonoscopy: March 2017, Abnormal CT of the GI tract Referring MD: Ever Gr M.D. Providers: Ahjose manuel Nielsen M.D. Impression: - No mass lesion [...] passed under direct vision. The Endoscope [id number]-H190 [id number] was introduced through the anus and advanced [...] 9:06 AM Procedure Code(s): --- Professional --- 51336, Sigmoidoscopy, flexible; diagnostic, including collection of specimen(s) by brushing or washing, when performed (separateprocedure) Diagnosis Code(s): --- Professional --- R93.3, Abnormal findings on diagnostic imaging of other parts of digestive tract CPT copyright 2019 [employer]. All rights reserved. The codes documented in this report are preliminary and upon insurance verification specialist reviewmay be revised to meet current compliance requirements. Recognized by the [employer] for promoting quality in endoscopy us Rosa Maria Nielsen MD ENDOSCOPY PROCEDURES Final Result * COLONOSCOPY (03/10/2019 11:02 AM CDT) Anatomical Region Laterality Modality Other Narrative Procedure Note Rosa Maria Nielsen MD - 03/10/2019 11:02 AM CDT [facility] Patient Name: Cinthia Voss Procedure Date: 03/10/2019 11:02 AM Date of : 1950 Admit Type: Outpatient Age: 68 Gender: Male Attending MD: Rosa Maria Nielsen M.D. Room: [facility] ENDOSCOPY ROOM 1 Note Status: Finalized Patient [...] passed under direct vision.The Pediatric Colonoscope [id number]-[id number] was used initially but then replaced with [...] 11:02 AM Procedure Code(s): --- Professional --- 32955, 52, Colonoscopy, flexible; diagnostic, including collection of [...] parts of digestive tract CPT copyright 2017 [employer]. All rights reserved. The codes documented in this report are preliminary and upon insurance verification specialist reviewmay be revised to meet current compliance requirements. 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 ADVANCE DIRECTIVE 03/10/2018 6:52 PM [...] 10:16 AM 03/10/2019 6:35 PM Care Teams Hot Stamp Operator Relationship Specialty Start Date End Date Ever Gr MD [address] [place] [address] [place] [address] PCP - General Internal Medicine 04/24/18 Jack Washington MD [address] [place] [address] ANAID CASEY [id number] Consulting Physician Infectious Diseases 04/26/21 Ever Gaspar MD [address] [place] [address] ANAID CASEY [id number] Surgeon General Surgery 04/26/21 Matt Martinez NP [address] [place] [address] DR WELCH [address] [place] [address] Nurse Practitioner Orthopedic Surgery 06/03/24
--- OUTSIDE RECORDS SUMMARY | 2025-01-29 00:54 | XMS_ITS | Clinical Summary ---
Author Organization [employer] Address [address] 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
--- OUTSIDE RECORDS SUMMARY | 2025-01-29 00:54 | XMS_ITS | Encounter Summary ---
Author Organization [facility] Address 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
--- OUTSIDE RECORDS SUMMARY | 2025-01-29 00:54 | XMS_ITS | Encounter Summary ---
Author Organization [facility] Address [address] [place] [address] Care Team Providers Care Principal Architect Name Role Phone Unavailable Primary Care Provider Unavailabl e Encounter Details Date Type Department Care Team (Latest Contact Info) Description 02/11/2002 Outpatient Historical [facility] Geoff Landaverde MD NO ADDRESS ON FILE LUMBAR DISC DISPLACEMENT (Primary Dx) Social History Tobacco Use Types Packs/Day Years Used Date Smoking Tobacco: Never Assessed Sex and Gender Information Value Date Recorded Sex Assigned at Not on file Legal Sex Male 3:42 AM RN MEDICAL INPATIENT SERVICES Gender Identity Not on file Sexual Orientation Not on file documented as of this encounter Plan of Treatment Not on file documented as of this encounter Visit Diagnoses Diagnosis Displacement of lumbar intervertebral disc without myelopathy- Primary documented in this encounter
--- NOTE | 2025-01-29 07:30 | WPDHPUPDATE1 ---
History and Physical Update Update Date/Time: 01/29/25 07:30 History and Physical has been reviewed, including an updated exam of the patient. There are NO changes in the patient's condition. Risks, benefits, and alternatives have been discussed and questions answered. Patient agrees to proceed with procedure.
[2025-01-29] MEDS: LACTATED RINGERS 1,000 ML 30 ML IV CONT (08:00)
--- NOTE | 2025-01-29 08:19 | P.PNAN_ITS ---
Anes - Initial Pre Proc Eval Procedure: Operation Date: 01/29/25 09:00 Proposed Procedures p Right Renal Extracorporeal Shock Wave Lithotripsy, - Fab Mills MD s Possible Cystoscopy, Possible Right Retrograde Pyelogram, Possible Right Stent Placement - Fab Mills MD Date/Time: 01/29/25 08:19 Surgeon: Fab Mills MD Pre Op Diagnosis: right renal stone Patient Data Age: 74 Gender: M Height: 1.78 m Weight: 98.65 kg Last Vital Signs Temp 36.4 C 01/29/25 07:30 Pulse 82 01/29/25 07:30 Resp 14 01/29/25 07:30 BP 128/85 01/29/25 07:30 Pulse Ox 96 01/29/25 07:30 O2 Del Method Room Air 01/29/25 07:30 Allergies Allergy/AdvReac Type Severity Reaction Status Date / Time penicillin G Allergy HIVES Verified 01/29/25 07:52 hydromorphone (From Dilaudid) AdvReac HALLUCINATION, Verified 01/29/25 07:52 NIGHTMARES Home Medications ?Medication ?Instructions ?Recorded ?Confirmed ?Type Lactobacillus acidophilus 10 100 mmu cells PO DAILY 01/15/25 01/15/25 History billion cell capsule (NewFlora) albuterol 90 mcg-budesonide 80 2 inh inhalation TID PRN shortness 01/15/25 01/15/25 History mcg/actuation HFA aerosol inhaler of breath (Airsupra) albuterol sulfate 2.5 mg/3 mL 2.5 mg inhalation .Q12 01/15/25 01/15/25 History (0.083 %) solution for nebulization cholecalciferol (vitamin D3) 25 25 mcg PO DAILY 01/15/25 01/15/25 History mcg (1,000 unit) capsule coenzyme Q10-vit B6-vit B12-vit 1 cap PO DAILY 01/15/25 01/15/25 History B5-mag ox 30 mg-50 mg-50 mcg-50 mg cap diclofenac sodium 1 % topical gel 2.25 inch topical QID PRN pain 01/15/25 01/15/25 History (Voltaren Arthritis Pain) diclofenac sodium 75 mg 75 mg PO Q12H PRN pain 01/15/25 01/15/25 History tablet,delayed release donepezil 10 mg tablet 10 mg PO DAILY 01/15/25 01/15/25 History fluticasone fur. 200 mcg-umeclid 2 inh inhalation QAM 01/15/25 01/15/25 History 62.5 mcg-vilant 25 mcg inhalat.powder (Trelegy Ellipta) magnesium 200 mg tablet 400 mg PO DAILY 01/15/25 01/15/25 History memantine 10 mg tablet 10 mg PO BID 01/15/25 01/15/25 History multivitamin (Daily Value tablet) 1 tablet PO DAILY 01/15/25 01/15/25 History omega-3 fatty acids 1,000 mg PO DAILY 01/15/25 01/29/25 History polyethylene glycol 3350 17 8.5 g PO DAILY PRN constipation 01/15/25 01/15/25 History gram/dose oral powder (Miralax) rosuvastatin 40 mg tablet 40 mg PO DAILY 01/15/25 01/15/25 History tezepelumab-ekko 210 mg/1.91 mL 210 mg subcut MONTHLY 01/15/25 01/15/25 History (110 mg/mL) subcutaneous pen injector (Tezspire) tramadol 50 mg tablet 50 mg PO Q6H PRN pain 01/15/25 01/15/25 History Patient hx anesthesia problems: none Family hx anesthesia problems: none Results Review: All pre-operative results and documents have been reviewed as part of the pre- operative evaluation. FORMERLY [facility], [facility] Social History Social History Smoking status: Never smoker Alcohol intake: current Living arrangements: with family Spiritual care concerns: No Anes - Eval Final PreProcedure Day of Procedure 01/29/25 08:19 Patient weight: obese Heart: regular rate and rhythm Lungs: decreased breath sounds Airway: Mallampati scale class III Neurological: alert and oriented Last oral intake: >/= 8 hours ASA classification: III Emergent: no Anesthetic plan: proceed Anesthesia type and monitoring: general LMA and standard monitoring Results Review: All pre-operative results and documents have been reviewed as part of the pre- operative evaluation. Informed Consent: The patient's anesthetic plan and its attendant risks and benefits were discussed with the patient/family/POA. Questions were solicited and answers provided to the satisfaction of the patient/family/POA.
[2025-01-29] MEDS: ceFAZolin 2 GM/D5W 50 ML 2 GM/50 ML BAG IVPB (08:39)
--- NOTE | 2025-01-29 09:25 | W.PM.PROC2 ---
Procedure Note - Detailed Date of Procedure 01/29/25 Pre-op Diagnosis right UPJ stone Post-op Diagnosis Same Procedure Performed Lithotripsy of right UPJ calculus Surgeon Fab Mills MD Anesthesia General Description of Procedure Patient was taken the operative suite correctly identified. Once anesthesia was obtained the stone was localized in both planes. Two thousand five hundred shocks were given to the stone. Difficult to tell the amount of fragmentation at this time. Patient was adamant about not having a stent placed. Patient is taken recovery stable condition. A follow-up in 7-10 days with KUB. This completes dictation. Please send a copy of op note to my office Estimated Blood Loss 0 Drains No Packing No Pathology None sent Complications No immediate complications Condition Stable Disposition PACU
== END 2025-01-29 10:58 | disposition home or self-care (01) ==
PROVIDERS: PCP Internal Medicine; Visit Provider Urology
PROC: (CPT 50590; principal; 2025-01-29 09:00)
DX: N20.0 Calculus of kidney (principal); E78.00 Pure hypercholesterolemia, unspecified; N52.9 Male erectile dysfunction, unspecified; J44.9 Chronic obstructive pulmonary disease, unspecified; K21.9 Gastro-esophageal reflux disease without esophagitis; F03.90 Unspecified dementia, unspecified severity, without behavioral disturbance, psychotic disturbance, mood disturbance, and anxiety; N40.0 Benign prostatic hyperplasia without lower urinary tract symptoms; R39.15 Urgency of urination; E66.9 Obesity, unspecified; Z68.31 Body mass index [BMI] 31.0-31.9, adult; Z79.891 Long term (current) use of opiate analgesic; Z79.51 Long term (current) use of inhaled steroids; Z79.85 Long-term (current) use of injectable non-insulin antidiabetic drugs; Z98.890 Other specified postprocedural states
CPT/HCPCS: 50590; 74018; J0690; J1100; J2003; J2405; J2704; J3010; J7030; J7120

== ENCOUNTER 2025-02-11 12:44 | Outpatient (CLI) | payer OTHER, SELFPAY ==
--- NOTE | ~2025-02-11 | XR_ITS ---
XR abdomen/kub 1V 02/11/2025 13:14 INDICATION: Flank pain TECHNIQUE: KUB COMPARISON: None FINDINGS: Bowel gas pattern is normal. There is no evidence of free air, mass, organomegaly, ascites or obstruction. No abnormal calculi are seen. The bones appear intact. There are pelvic phlebolith s. Moderate thoracic spondylosis. IMPRESSION: 1: No acute abdominal abnormality identified. Reviewed, dictated and finalized at location A.
--- OUTSIDE RECORDS SUMMARY | 2025-02-11 13:16 | XMS_ITS | Clinical Summary ---
Author Organization [facility] Address [address] [place] [address] Care Team Providers Care Meter Repair Shop Supervisor Name Role Phone Unavailable Primary Care Provider Unavailabl e Source Comments [facility],non-owned Affiliates and Associated Physician Practices is amultiple site organization consisting of ambulatory clinics and hospital sitesin [place], [place], [place] and [place]. This disclosure is being madepursuant to the Care Everywhere program and may not contain all information available regarding this patient. Last updated 18.[facility] [employer] Allergies Active Allergy Reactions Criticality Noted Date [...] PO) Active Cholecalciferol (VITAMIN D-3 PO) Active [place]-3 Fatty Acids (FISH OIL) 500 MG capsule Take by mouth 2 times daily Active rosuvastatin (CRESTOR) 40 MG tablet Take 40 mg by mouth once daily Active Encounters Date Type Department Care Team Description 12/31/2024 Lab Requisition [facility] - DermPath Lab [address] [place] [address] Gary Bergeron MD from Last 3 Months [...] - Oxygen Saturation 94% 08/15/2017 8:45 AM ACCESS LEAD Inhaled Oxygen Concentration - - Weight 97.5 kg (215 lb) 01/27/2018 8:14 AM CDT Height 177.8 cm (5' 10) 01/27/2018 8:14 AM CDT Body Mass Index [...] AM CDT) Case Report Dermatopathology Report Case: [id number] Authorizing Provider: Gary Bergeron MD Collected: 12/30/2024 [...] determined by the Dermatopathology Laboratory at [facility], directed by Dr. Shu Jimenez. These tests need not be, and therefore are not, approved by the [place] Food and Drug Administration. The tests are used for clinical purposes. Billing Codes Specimen Charges Stain Charges 01690 1 33711 1 3:01 PM CDT DERMATOPATHOLOGY LABORATORY Embedded Images 3:01 PM CDT DERMATOPATHOLOGY LABORATORY Pathology/Cytolog y TISSUE SPECIMEN FROM SKIN / Unknown 12/30/2024 12/31/2024 12:40 PM CDT us Gary Bergeron MD LAB - PATHOLOGY/CYTOLOGY ORDERAB LES Final Result DERMATOPATHOLOGY LABORATORY [facility] - Department of Dermatology [address] [place] [address], 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 [phone] from Last 3 Months Insurance [employer]
--- OUTSIDE RECORDS SUMMARY | 2025-02-11 13:16 | XMS_ITS | Encounter Summary ---
Author Organization [facility] Address [address] [place] [address] Care Team Providers Care Hand Cloth Cutter Name Role Phone Unavailable Primary Care Provider Unavailabl e Encounter Details Date Type Department Care Team (Late st Contact Info) Description 07/24/2018 Lab Requisition [facility] DermPath Lab [address] [facility] [place] [address] Gary Bergeron MD [facility] [address] [address] Social History Tobacco Use Types [...] Comments DERMATOPATHOLOGY Routine 07/23/2018 12:0 0 AM GLAZING SUPERINTENDENT documented in this encounter Results * DERMATOPATHOLOGY (07/23/2018 12:00 AM GLAZING SUPERINTENDENT) Case Report Dermatopathology Report Case: [id number] Authorizing Provider: Gary Bergeron MD Collected: 07/23/2018 12:00 AM Pathologist: Remedios Barriga MD Received: 07/24/2018 09:32 AM Specimen: Skin, mid upper back 8 12:56 PM GLAZING SUPERINTENDENT DERMATOPATHOLOGY LABORATORY Final Diagnosis Specimen A. SKIN, mid upper back: BASAL CELL CARCINOMA, NODULAR TYPE (C44.519) 8 12:56 PM GLAZING SUPERINTENDENT DERMATOPATHOLOGY LABORATORY at [address] GLAZING SUPERINTENDENT Clinical History R/O BCC 12:56 PM [facility] DERMATOPATHOLOGY LABORATORY Gross Description Specimen A: Received is one formalin filled container labeled with the patient's name and designated mid upper back. The specimen consists of a shave biopsy measuring 6x5x1 mm. Jar 0. 12:56 PM [facility] DERMATOPATHOLOGY LABORATORY Microscopic Description Specimen A. SKIN, mid upper back: Within the dermis there are aggregates of basaloid cells with a high nuclear to cytoplasmic ratio and peripheral palisading. 12:56 PM [facility] DERMATOPATHOLOGY LABORATORY Disclaimer An external and internal positive and negative controls are appropriate for the histochemical, immunohistochemical and immunofluorescence stain(s) in this case (if any), except where stated explicitly. The performance characteristics of the stain(s) cited in this report were developed and its performance characteristic determined by the Dermatopathology Laboratory at [facility]. These tests need not be, and therefore are not, approved by the [place] Food and Drug Administration. The tests are used for clinical purposes. Billing Codes Specimen Charges Stain Charges 30898 1 12:56 PM [facility] DERMATOPATHOLOGY LABORATORY Embedded Images 12:56 PM [facility] DERMATOPATHOLOGY LABORATORY Pathology/Cytolog y TISSUE SPECIMEN FROM SKIN / Unknown 07/23/2018 07/24/2018 9:32 AM GLAZING SUPERINTENDENT us Gary Bergeron MD LAB - PATHOLOGY/CYTOLOGY ORDERAB LES Final Result DERMATOPATHOLOGY LABORATORY [facility] - Department of Dermatology [address] [place] [address], 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 [phone] documented in this encounter Visit Diagnoses Not on filedocumented in this encounter
--- OUTSIDE RECORDS SUMMARY | 2025-02-11 13:16 | XMS_ITS | Encounter Summary ---
Author Organization [facility] Address [facility] [place] [address] Care Team Providers Care Decal Cutter Name Role Phone Unavailable Primary Care Provider Unavailabl e Encounter Details Date Type Department Care Team (Late st Contact Info) Description 12/31/2024 Lab Requisition [facility] - DermPath Lab [address] [place] [address] Gary Bergeron MD [address] [place] [address] Social History Tobacco Use Types Packs/Day [...] AM CDT) Case Report Dermatopathology Report Case: [id number] Authorizing Provider: Gary Bergeron MD Collected: 12/30/2024 12:00 AM Ordering Location: [facility] - Received: 12/31/2024 12:40 PM [...] characteristic determined by the Dermatopathology Laboratory at [facility], directed by Dr. Shu Jimenez. These tests need not be, and therefore are not, approved by the [place] Food and Drug Administration. The tests are used for clinical purposes. Billing Codes Specimen Charges Stain Charges 95250 1 02336 1 3:01 PM CDT DERMATOPATHOLOGY LABORATORY Embedded Images 3:01 PM CDT DERMATOPATHOLOGY LABORATORY Pathology/Cytolog y TISSUE SPECIMEN FROM SKIN / Unknown 12/30/2024 12/31/2024 12:40 PM CDT us Gary Bergeron MD LAB - PATHOLOGY/CYTOLOGY ORDERAB LES Final Result DERMATOPATHOLOGY LABORATORY [facility] - Department of Dermatology [address] [place] [address], [facility] [[email or web address]] [phone] documented in this encounter Visit Diagnoses Not on filedocumented in this encounter
--- OUTSIDE RECORDS SUMMARY | 2025-02-11 13:16 | XMS_ITS | Clinical Summary ---
Author Organization [facility] Address [address], [address] [address] Phone Care Team Providers Care Site Foreman Name Role Phone Thaddeus Cedeno MD Unavailable [phone] Nataliya Adhikari DPM Unavailable [phone] Ever Gr MD Primary Care Provider [phone] Allergies Active Allergy Reactions Criticality Noted Date [...] s Tablet Take by mouth. Activ e [place]-3 Fatty Acids (FISH OIL) 500 MG Capsule [...] Comments Blood Pressure 120/70 07/24/2022 11:20 AM GEAR TOOTH LAPPING MACHINE OPERATOR Pulse 78 07/24/2022 11:20 AM GEAR TOOTH LAPPING MACHINE OPERATOR Temperature 36.8 C (98.3 F) 01/21/2019 8:42 AM CDT Respiratory Rate 18 07/24/2022 11:20 AM GEAR TOOTH LAPPING MACHINE OPERATOR Oxygen Saturation 98% 07/24/2022 11:20 AM GEAR TOOTH LAPPING MACHINE OPERATOR Inhaled Oxygen Concentration - - Weight 102.5 kg (226 lb) 07/24/2022 11:20 AM GEAR TOOTH LAPPING MACHINE OPERATOR Height 177.8 cm (5' 10) 07/24/2022 11:20 AM GEAR TOOTH LAPPING MACHINE OPERATOR Body Mass Index 32.43 07/24/2022 11:20 AM GEAR TOOTH LAPPING MACHINE OPERATOR Plan of Treatment Health Maintenance Due Date [...] on patient's age to complete this topic Human Papillomavirus (HPV) Immunization Aged Out No longer eligible based [...] Most Recently Relevant to Health Maintenance Insurance [facility] Care Teams Site Foreman Relationship Specialty Start Date End Date Ever Gr MD [address] [address] PCP - General Internal Medicine 03/05/23 Thaddeus Cedeno MD General Surgery 04/05/16 Nataliya Adhikari DPM Consulting Physician Podiatry 07/24/22
--- OUTSIDE RECORDS SUMMARY | 2025-02-11 13:16 | XMS_ITS | Encounter Summary ---
Author Organization [facility] Address [address] [facility] [place] [address] Care Team Providers Care Cargo Tank Mechanic Name Role Phone Unavailable Primary Care Provider Unavailabl e Encounter Details Date Type Department Care Team (Late st Contact Info) Description 08/15/2022 Lab Requisition [facility] DermPath Lab [address] [facility] [place] [address] Gary Bergeron MD [facility] [address] [address] Social History Tobacco Use Types [...] Comments DERMATOPATHOLOGY Routine 08/14/2022 12:0 0 AM WOOLEN MILL UTILITY WORKER documented in this encounter Results * DERMATOPATHOLOGY (08/14/2022 12:00 AM WOOLEN MILL UTILITY WORKER) Case Report Dermatopathology Report Case: [id number] Authorizing Provider: Gary Bergeron MD Collected: 08/14/2022 12:00 AM Ordering Location: [facility] DermPath Lab Received: 08/15/2022 11:05 AM Pathologist: Jazmyne Gutierrez MD Specimen: Skin, upper back 3:24 PM WOOLEN MILL UTILITY WORKER DERMATOPATHOLOGY LABORATORY Final Diagnosis Specimen A. SKIN, upper back: BASAL CELL CARCINOMA, KERATOTIC TYPE (C44.519) (see microscopic description) 2 3:24 PM [facility] DERMATOPATHOLOGY LABORATORY at [address] WOOLEN MILL UTILITY WORKER Clinical History R/O BCC, Sup 2 3:24 PM [facility] DERMATOPATHOLOGY LABORATORY Gross Description Specimen A: Received is one formalin filled container labeled with the patient's name and designated upper back. The specimen consists of a shave biopsy measuring 6x4x1 mm. Jar 0. 2 3:24 PM [facility] DERMATOPATHOLOGY LABORATORY Microscopic Description Specimen A. SKIN, upper back: The dermis is infiltrated by nests of basaloid cells that show peripheral palisading and are associated with fibromyxoid stroma. Both mitotic figures and necrotic cells are identified. There are also areas with squamous differentiation and keratinization within the nests. Additional deeper sections were obtained and reviewed. 2 3:24 PM [facility] DERMATOPATHOLOGY LABORATORY Disclaimer An external and internal positive and negative controls are appropriate for the histochemical, immunohistochemical and immunofluorescence stain(s) in this case (if any), except where stated explicitly. The performance characteristics of the stain(s) cited in this report were developed and its performance characteristic determined by the Dermatopathology Laboratory at [facility], directed by Dr. Shu Jimenez. These tests need not be, and therefore are not, approved by the [place] Food and Drug Administration. The tests are used for clinical purposes. Billing Codes Specimen Charges Stain Charges 83347 1 2 3:24 PM [facility] DERMATOPATHOLOGY LABORATORY Embedded Images 2 3:24 PM [facility] DERMATOPATHOLOGY LABORATORY Pathology/Cytolog y TISSUE SPECIMEN FROM SKIN / Unknown 08/14/2022 08/15/2022 11:05 AM WOOLEN MILL UTILITY WORKER us Gary Bergeron MD LAB - PATHOLOGY/CYTOLOGY ORDERAB LES Final Result DERMATOPATHOLOGY LABORATORY [facility] - Department of Dermatology [address] [place] [address], [facility] [place] [phone] documented in this encounter Visit Diagnoses Not on filedocumented in this encounter
--- OUTSIDE RECORDS SUMMARY | 2025-02-11 13:16 | XMS_ITS ---
Author Organization [facility] Address [address] [place] [address] Care Team Providers Care Invoicing Machine Operator Name Role Phone Ever Gr MD Primary Care Provider + Jack Washington MD Unavailable [phone] Ever Gaspar MD Unavailable [phone] Matt Martinez NP Unavailable [phone] Active Problems Problem Noted Date Diagnosed Date [...] (08/08/2022): Added automatically from request for surgery [id number] Kidney stone 08/08/2022 Overview (08/08/2022): Added automatically from request for surgery [id number] High cholesterol 07/27/2022 Other chest pain 04/03/2022 [...] (05/14/2019): Added automatically from request for surgery [id number] Abnormal CT scan 02/16/2019 Overview (02/16/2019): Added automatically from request for surgery [id number] Abnormal feces 02/16/2019 Overview (02/16/2019): Added automatically from request for surgery [id number] Chronic pain of left knee 08/27/2018 Arthritis of left knee 08/27/2018 Acute medial meniscus tear of left knee 08/27/20 18 Preoperative evaluation to r lyne out surgical contraindication 06/11/2018 Assessment & Plan (04/28/2024 9:03 AM CDT): The patient is cleared for the proposed total knee replacement. Rotator cuff arthropathy of left shoulder 2017 Overview (05/27/2018): Added automatically from request for surgery [id number] Bicipital tendinitis, left 05/27/2018 Overview (05/27/2018): Added automatically from request for surgery [id number] Localized osteoarthritis of left shoulder 2017 Obstructive sleep apnea syndrome 03/21/2018 Myalgia 02/10/2018 Rotator cuff arthropathy, left 11/21/2017 Overview (11/21/2017): Added automatically from request for surgery [id number] Left bicipital tenosynovitis 11/21/2017 Overview (11/21/2017): Added automatically from request for surgery [id number] Cervicalgia 10/15/2017 Cervical radiculopathy 10/15/2017 Spondylosis of [...] (05/24/2021): Added automatically from request for surgery [id number] Assessment & Plan (06/16/2021 6:28 AM CDT): [...]
--- OUTSIDE RECORDS SUMMARY | 2025-02-11 13:16 | XMS_ITS | Data Portability ---
Author Organization [facility], Main Office Address [address] [facility] [address] [place] [address] Assessment No assessment recorded. Plan of Treatment [...] Time Neoplasm of uncertain behavior of skin [id number] Active 2021 Gary Bergeron MD [address] [facility] [address] [place], [phone], [facility] 2 10:24:17 Verruca vulgaris 92018823 Active 2021 Gary Bergeron MD [address] [facility] [address], [place], [address], [facility] 2 10:24:22 Chronic effect of ultraviolet radiation on normal skin 170057983 Active 2021 Gary Bergeron MD [address] [facility] [address], [place], [address], [facility] 2 10:26:36 Basal cell carcinoma of back 237282683 Active 2022 Gary Bergeron MD [address] [place], [address], [facility] 5 12:32:33 Inflamed seborrheic keratosis 907858977 Active 2022 Gary Bergeron MD [address] [facility] [address], [place], [address], [facility] 3 11:04:35 Benign lymphocytic infiltration of [place] 90285744 Active 2024 Gary Bergeron MD [address] [facility] [address], [place], [address], [facility] 5 17:19:28 Seborrheic keratosis 933724822 Active 2020 Gary Bergeron MD [address] [facility] [address], [place], [address], [facility] 1 11:08:09 Senile angioma 7732466 Active 2020 Gary Bergeron MD [address] [facility] [address], [place], [address], [facility] 1 11:08:11 History of malignant basal cell neoplasm of skin 414295771 Active 2020 Gary Bergeron MD [address] [facility] [address], [place], [address], [facility] 1 11:08:12 Problem Notes None recorded. Procedures Surgical History Date Name Laterality Status Provider Name and Address Organization Details Recorded Time 07/23/2018 Shave Biopsy active Gary gorman MD [address] [facility] [address] [place], [phone], [facility] 07/23/2018 09:42:01 Imaging Results None recorded. Procedure Notes None recorded. Medical Equipment None Reported. Allergies Allergen ID Allergen Name Allergen Category Reaction Reaction Severity Criticality Documentation Date Start Date Code Code System Note Provider Name and Address Organization Details Recorded Time 723 Product containin g penicilli n (product) medicatio n Not available Not available Not available 05/14/2018 [id number] SNOMED Nena Gomez [facility] 8 10:10:14 Medications Name Sig Start Date [...] SNOMED-CT Code Diagnosis ICD10 Code Diagnosis Note [id number] Gary Bergeron MD Main Office [address] [facility] [place] [address] [place] [phone] 10/10/2022 09:55:15 10/10/2022 10:36:19 Basal cell carcinoma of back [id number] C44.519 Health Concerns Section Related Observation LastModified by Organization Detai ls LastModified Time None Recorded Concern Status LastModified by Organization Details LastModified Time None Recorded Advance Directives Directive None Recorded Payers None recorded.
--- OUTSIDE RECORDS SUMMARY | 2025-02-11 13:17 | XMS_ITS | Encounter Summary ---
Author Organization [employer] Address [address] [place] [address] Care Team Providers Care Final Inspector Paper Name Role Phone Unavailable Primary Care Provider Unavailabl e Encounter Details Date Type Department Care Team (Latest Contact Info) Description 12/04/2006 Outpatient Historical [facility] Geoff Landaverde MD NO ADDRESS ON FILE Displacement of Lumbar Intervertebral Disc without Myelopathy (Primary Dx) Social History Tobacco Use Types Packs/Day Years Used Date Smoking Tobacco: Never Assessed Sex and Gender Information Value Date Recorded Sex Assigned at Not on file Legal Sex Male 3:42 AM PROFESSOR OF GEOLOGY Gender Identity Not on file Sexual Orientation Not on file documented as of this encounter Plan of Treatment Not on file documented as of this encounter Visit Diagnoses Diagnosis Displacement of lumbar intervertebral disc without myelopathy- Primary documented in this encounter
--- OUTSIDE RECORDS SUMMARY | 2025-02-11 13:17 | XMS_ITS | Encounter Summary ---
Author Organization [employer] Address 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
--- OUTSIDE RECORDS SUMMARY | 2025-02-11 13:17 | XMS_ITS | Referral Summary ---
Author Organization [facility] Address [address] [place] [address] Care Team Providers Care Public Relations Representative Name Role Phone Ever Gr MD Primary Care Provider + Jack Washington MD Unavailable [phone] Ever Gaspar MD Unavailable + [phone] Matt Martinez NP Unavailable [phone] Encounters Date Type Department Care Team Description 02/05/2025 Telephone [place] [employer] Techn[employer] [address] [place] [phone] Results 02/02/2025 8:34 AM CDT - 02/02/2025 11:59 PM CDT Hospital Encounter [facility] [address] [place] [address] [phone] Dyspnea on exertion Discharge Disposition: Discharge to home or self care 01/22/2025 Telephone [place] [employer] Techn[employer] [address] [place] [phone] Nancy Cahterine MA R/[facility] Denial 01/19/2025 Orders Only [place] [employer] [address] [place] [phone] Walter Yao MD Dyspnea on exertion (Primary Dx) 01/12/2025 10:00 AM CDT Office Visit [place] [employer] [address] [facility] [address] [place] [phone] Walter Yao MD Diastolic dysfunction (Primary Dx); Mixed hyperlipidemia; Left anterior fascicular block; Dyspnea on exertion 01/05/2025 Telephone [place] [employer] Techn[employer] [address] [facility] [address] [place] [phone] Walter Yao MD 12/31/2024 8:28 AM CDT - 12/31/2024 11:59 PM CDT Hospital Encounter [facility] Cardiology [address] [place] [phone] Dyspnea, unspecified type Discharge Disposition: Discharge to home or self care 12/22/2024 8:25 AM CDT [address] [phone] 12/17/2024 9:25 AM CDT [address] [phone] 12/12/2024 8:10 AM CDT [address] [phone] 12/11/2024 10:50 AM CDT [address] [address] 12/08/2024 Orders Only GARFIELD MORAES [address] [address] Gary Bergeron MD 12/07/2024 8:10 PM CDT - 12/07/2024 10:41 PM CDT Emergency [facility] Emergency Department [address] [place] [phone] Rash (Primary Dx) Discharge Disposition: Discharge to [...] 08/10/2022 Neoplasm of uncertain behavior of skin 2 Verruca vulgaris 08/10/2022 Nephrolithiasis 08/08/2022 Overview (08/08/2022): Added automatically from request for surgery [id number] Kidney stone 08/08/2022 Overview (08/08/2022): Added automatically from request for surgery [id number] High cholesterol 07/27/2022 Other chest pain 04/03/2022 [...] (05/14/2019): Added automatically from request for surgery [id number] Abnormal CT scan 02/16/2019 Overview (02/16/2019): Added automatically from request for surgery [id number] Abnormal feces 02/16/2019 Overview (02/16/2019): Added automatically from request for surgery [id number] Chronic pain of left knee 08/27/2018 Arthritis of left knee 08/27/2018 Acute medial meniscus tear of left knee 08/27/20 18 Preoperative evaluation to r ule out surgical contraindication 06/11/2018 Assessment & Plan (04/28/2024 9:03 AM CDT): The patient is cleared for the proposed total knee replacement. Rotator cuff arthropathy of left shoulder 2017 Overview (05/27/2018): Added automatically from request for surgery [id number] Bicipital tendinitis, left 05/27/2018 Overview (05/27/2018): Added automatically from request for surgery [id number] Localized osteoarthritis of left shoulder 2017 Obstructive sleep apnea syndrome 03/21/2018 Myalgia 02/10/2018 Rotator cuff arthropathy, left 11/21/2017 Overview (11/21/2017): Added automatically from request for surgery [id number] Left bicipital tenosynovitis 11/21/2017 Overview (11/21/2017): Added automatically from request for surgery [id number] Cervicalgia 10/15/2017 Cervical radiculopathy 10/15/2017 Spondylosis of [...] (05/24/2021): Added automatically from request for surgery [id number] Assessment & Plan (06/16/2021 6:28 AM CDT): [...] on file 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 Gender Identity Not on file Sexual Orientation Not on file Last Filed Vital Signs Vital Sign Reading Time Taken Comments Blood Pressure 137/78 02/02/2025 9:20 AM CDT Pulse 75 02/02/2025 9:36 AM CDT Temperature 36.5 C (97.7 F) 12/07/2024 8:06 PM CDT Respiratory Rate 16 01/12/2025 9:52 AM CDT Oxygen Saturation 96% 01/12/2025 9:52 AM CDT Inhaled Oxygen Concentration - - Weight 97.1 kg (214 lb) 01/12/2025 9:52 AM CDT Height 177.8 cm (5' 10) 12/07/2024 8:06 PM CDT Body Mass Index 30.71 12/07/2024 8:06 PM CDT Plan of Treatment Not on file Medical Devices Implanted Type Area Physical Metallurgist Device Identifier Shelf Expiration Date Model / Serial / Lot Exactech 320-38-00 Equinoxe 38mm Reverse Shoulder +0mm Liner Humeral - [id number] - [id number] Implanted:Qty: 1 on 06/10/2018 by Steven Downs MD at [facility] Other - see comments Left: Shoulder Exactech 320-38-00 / [id number] / Exactech 320-38 38mm Glenosphere Reverse Shoulder Component Glenoid - [id number] - [id number] Implanted:Qty: 1 on 06/10/2018 by Steven Downs MD at [facility] Other - see comments Left: Shoulder Exactech 05/07/2028 320-38 / [id number] / Exactech 320-15-01 Equinoxe Reverse Shoulder Standard Plate Glenoid - [id number] - [id number] Implanted:Qty: 1 on 06/10/2018 by Steven Downs MD at [facility] Other - see comments Left: Shoulder Exactech 04/13/2028 320-15- / [id number] / Exactech 320-20-00 Reverse Torque Define Shoulder Kit Screw - [id number] - [id number] Implanted:Qty: 1 on 06/10/2018 by Steven Downs MD at [facility] Other - see comments Left: Shoulder Exactech 05/07/2023 320-20-00 / [id number] / Exactech 320-20-18 Equinoxe 4.5mm 18mm Kit Compression Lock Cap Reverse Shoulder - [id number] - [id number] Implanted:Qty: 1 on 06/10/2018 by Steven Downs MD at [facility] Other - see comments Left: Shoulder Exactech 01/14/2023 320-20-18 / [id number] / Exactech 320-10-00 Equinoxe Reverse Shoulder +0mm Tray Humeral Adapter - [id number] - [id number] Implanted:Qty: 1 on 06/10/2018 by Steven Downs MD at [facility] Other - see comments Left: Shoulder Exactech 04/07/2028 320-10-00 / [id number] / Exactech 300-30-08 Equinoxe 8mm 70mm Stem Humeral Sterile - [id number] - [id number] Implanted:Qty: 1 on 06/10/2018 by Steven Downs MD at [facility] Other - see comments Left: Shoulder Exactech 11/27/2027 300-30-08 / [id number] / Exactech 320-15-05 Equinoxe Lock Reverse Shoulder Glenosphere Screw Bone - [id number] - [id number] Implanted:Qty: 1 on 06/10/2018 by Steven Downs MD at [facility] Screw Left: Shoulder Exactech 06/08/2023 320-15-05 / [id number] / Exactech 320-20-38 Equinoxe 4.5mm 38mm Kit Compression Lock Cap Reverse Shoulder - [id number] - [id number] Implanted:Qty: 1 on 06/10/2018 by Steven Downs MD at [facility] Screw Left: Shoulder Exactech 01/08/2023 320-20-38 / [id number] / Exactech 320-20-18 Equinoxe 4.5mm 18mm Kit Compression Lock Cap Reverse Shoulder - [id number] - [id number] Implanted:Qty: 1 on 06/10/2018 by Steven Downs MD at [facility] Screw Left: Shoulder Exactech 03/22/2021 320-20-18 / [id number] / Depuy [employer] [id number] Attune 5mm Cruciate Retaining Rotate Platform Knee 8 Insert - [id number] Implanted:Qty: 1 on 06/02/2019 by Steven Downs MD at [facility] Left: Knee [employer] 04/08/2024 [id number] / / [id number] [employer] [id number] Attune Cruciate Retain Cementless Knee Left 8 Component Femoral - [id number] Implanted:Qty: 1 on 06/02/2019 by Steven Downs MD at [facility] Left: Knee [employer] 10/09/2027 [id number] / / [id number] [employer] [id number] Attune Cementless Rotate Platform Knee 8 Baseplate Tibial - [id number] Implanted:Qty: 1 on 06/02/2019 by Steven Downs MD at [facility] Left: Knee [employer] 06/08/2028 [id number] / / [id number] [employer] Attune Cruciate Retain Cementless Knee Right 8 Component Femoral [id number] - [id number] Implanted:Qty: 1 on 06/02/2024 by Steven Downs MD at [facility] Right: Knee [employer] [id number] 04/08/2034 [id number] / / [id number] [employer] Attune Fb Tib Base Sz 7 Por [id number] - [id number] Implanted:Qty: 1 on 06/02/2024 by Steven Downs MD at [facility] Right: Knee [employer] [id number] 03/08/2034 [id number] / / [id number] [employer] Insert Tibial Knee Fixed Rm Posterior Stabilized Attune 6mm Size 8 Polyethylene [id number] - [id number] Implanted:Qty: 1 on 06/02/2024 by Steven Downs MD at [facility] Right: Knee [employer] [id number] 02/06/2031 [id number] / / [id number] Explanted Type Area Physical Metallurgist Device Identifier Shelf Expiration Date Model / Serial / Lot [employer] Inc [id number] 6fr 24cm 145cm Radiopaque Positioner Filiform Flexible Tip - [id number] Implanted:Qty: 1 on 09/13/2022 by Kristie Mcfarland MD at [facility] Explanted:Qty: 1 on 09/21/2022 by Kristie Mcfarland MD Left: Ureter [employer] [id number] 12/05/2024 [id number] / / [id number] [employer] [id number] 6fr 24cm 145cm Radiopaque Positioner Filiform Flexible Tip - [id number] Implanted:Qty: 1 on 09/13/2022 by Kristie Mcfarland MD at [facility] Explanted:Qty: 1 on 09/21/2022 by Kristie Mcfarland MD Right: Ureter [employer] [id number] 12/05/2024 [id number] / / [id number] Procedures Procedure Name Priority Date/Time Associated Diagnosis Comments CT HEART MORPHOLOGY AND CORONARY ARTERIES W CONTRAST Schedule Routine, Read Routine (OP Routine) 02/02/2025 9:50 AM CDT Dyspnea on exertion TRANSTHORACIC ECHO (TTE) COMPLETE W DOPPLER/CF WO [...] Recently Relevant to Health Maintenance Results * CTA Heart and Coronary Arteries W Morphology when Performed (02/02/2025 9:50 AM CDT) Anatomical Region Laterality Modality Chest N/A Computed Tomogra phy 02/02/2025 12:4 0 PM CDT Impressions 02/03/2025 7:55 AM CDT 1. Calculated calcium score 178. 2. Mild atherosclerotic disease in the left circumflex and left anterior descending artery of less than 25% luminal reduction. Dictated by: Hong Soriano M.D. The radiology attending physician has personally reviewed this study, and had reviewed and/or edited this written report and agrees with it. Electronically signed by: Ward Pulido M.D. Narrative 02/03/2025 7:55 AM CDT EXAMINATION: CORONARY CT ANGIOGRAM HISTORY: Ischemic symptoms TECHNIQUE: CT angiography of the coronary arteries was performed after the administration of 93 mL of Optiray 350. Images were also obtained precontrast for the purposes of calcium scoring. 3 mg of metoprolol was administered intravenously prior to the examination. The patient's heart rate and blood pressure at the time of the examination were 75 beats per minute and 137/68 mmHg. Images were transferred to a 3D workstation for additional post-processing. FINDINGS: The coronary arteries are codominant. Normal origin of the coronary arteries Right coronary system: Septal tanning solution maker arising from the proximal RCA. No obstructive coronary artery. Left coronary system: There is no left main coronary artery disease. There is mild atherosclerotic disease noted within the middle segment of both the circumflex and the left anterior descending arteries less than 25% luminal reduction by calcified atherosclerotic plaque. The calculated calcium score is 178. Other findings: There are mild fibrotic changes noted within the lung bases with tree in bud nodularity, likely representing sequelae of aspiration. Procedure Note Ward Pulido MD - 02/03/2025 EXAMINATION: CORONARY CT ANGIOGRAM HISTORY: Ischemic symptoms TECHNIQUE: CT angiography of the coronary arteries was performed after the administration of 93 mL of Optiray 350. Images were also obtained precontrast for the purposes of calcium scoring. 3 mg of metoprolol was administered intravenously prior to the examination. The patient's heart rate and blood pressure at the time of the examination were 75 beats per minute and 137/68 mmHg. Images were transferred to a 3D workstation for additional post-processing. FINDINGS: The coronary arteries are codominant. Normal origin of the coronary arteries Right coronary system: Septal tanning solution maker arising from the proximal RCA. No obstructive coronary artery. Left coronary system: There is no left main coronary artery disease. There is mild atherosclerotic disease noted within the middle segment of both the circumflex and the left anterior descending arteries less than 25% luminal reduction by calcified atherosclerotic plaque. The calculated calcium score is 178. Other findings: There are mild fibrotic changes noted within the lung bases with tree in bud nodularity, likely representing sequelae of aspiration. IMPRESSION: 1. Calculated calcium score 178. 2. Mild atherosclerotic disease in the left circumflex and left anterior descending artery of less than 25% luminal reduction. Dictated by: Hong Soriano M.D. The radiology attending physician has personally reviewed this study, and had reviewed and/or edited this written report and agrees with it. Electronically signed by: Ward Pulido M.D. Walter Yao MD IMG CT PROCEDURES Final Result * TRANSTHORACIC ECHO (TTE) COMPLETE W DOPPLER/CF WO CONTRAST (12/31/2024 9:39 AM CDT) LV EF 65 % CONS SCIMAGE Anatomical Region Laterality Modality Ultrasound 12/31/2024 9:04 AM CDT Narrative 12/31/2024 2:[address] PM [address]T [address] [address] Echocardiogram Report Patient Name: CINTHIA VOSS : [...] Procedure Note Callum Elias MD - 12/31/[address] [address] Echocardiogram Report Patient Name: CINTHIA VOSS : 1950 Study Date: 12/31/2024 9:04:18 AM Gender: M Tech: Location: Echo Lab 2 Ref Provider: FRANKLYN [...] revised on 2020. Testing performed by: [facility], [address] [place] [address]., [address] Blood 12/22/2024 8:31 AM CDT 12/22/2024 2:28 PM CDT us Gary Bergeron MD LAB BLOOD ORDERABLES Final Resu lt [facility] [place] 1 [facility] [place] [address] * Anti-double stranded DNA abs (12/22/2024 8:31 AM CDT) dsDNA Ab <1.0 <=4.0 IUnits/mL Comment: Interpretive Data Negative: < or = 4 IUnits/mL Indeterminate: 5 - 9 IUnits/mL Positive: > or = 10 IUnits/mL Current interpretive data was last revised on 2017. Testing performed by: [facility], [address] [place] [address]., [address] Blood 12/22/2024 8:31 AM CDT 12/22/2024 2:28 PM CDT Narrative [facility] ([place]) - 12/23/2024 10:57 AM CDT [id number] us Gary Bergeron MD LAB BLOOD ORDERABLES Final Resu lt [facility] ([place]) 1 [facility] Department [place] [address] * (ABNORMAL) Urinalysis reflex to microscopic and [...] tendency for uric acid stone formation. Source: [facility] [place] Current Interpretive Data was last revised on [...] will be performed. [facility] ([place]) Urine 12/17/2024 9:27 AM CDT 12/17/2024 10:41 AM CDT Ever Gr MD LAB MICROBIOLOGY - GENER AL ORDERABLES Final Result Performing Organization Address [facility]/ZIP Co de Phone Number [facility] ([place]) 1 [facility] [place] [address] * (ABNORMAL) Urinalysis, microscopic only (12/17/2024 9:27 AM CDT) WBC, ur 21-50(A) 0 - 5 /HPF RBC, ur >50(A) 0 - 2 /HPF [facility] ([place]) Epithelial cells, squamous, ur 1-5 0 - 5 /HPF [facility] ([place]) Mucous, ur Present(A) [facility] ([place]) Culture Reflex Comment Reflex to urine culture will be performed. [facility] ([place]) Urine 12/17/2024 9:27 AM CDT 12/17/2024 10:41 AM CDT Ever Gr MD LAB URINE ORDERABLES Fin al Result Performing Organization Address City/[facility]/ZIP Co de Phone Number [facility] ([place]) 1 [facility] [place] [address] * Urine culture Urine (12/17/2024 9:27 AM CDT) Report Final Report: Less than 100,000 colonies/mL (clinically insignificant growth based on current clinical standards) Comment:Testing performed by : [facility], [address] [place]., [address] Organism (CLINICALLY INSIGNIFICANT GROWTH [facility] ([place]) Urine 12/17/2024 9:27 AM CDT 12/17/2024 3:34 PM CDT Narrative [facility] ([place]) - 12/19/2024 7:41 AM CDT Urine culture reflexed based upon urinalysis results. Testing performed by [facility] Microbiology Laboratory ([phone]) Ever Gr MD LAB MICROBIOLOGY - GENER AL ORDERABLES Final Result Performing Organization Address [facility]/ZIP Co de Phone Number [facility] ([place]) 1 [facility] [place] [address] * Cryoglobulin, serum only (12/12/2024 8:12 AM CDT) Pathologist [facility] Cryoglobulin, quant See Comment Negative [facility] Comment: Negative. The quantity of serum submitted and received is not sufficient to reliably rule out the presence of a cryoglobulin. Suggest submitting a serum sample of at least 2.0 - 2.5 mL. Test Performed by: [facility] [address] [place] [address] Evaporator Helper: Emerald Solares Ph.D.; CLIA# [id number] Blood 12/12/2024 8:12 AM CDT 12/12/2024 8:17 AM CDT Ever Gr MD LAB BLOOD ORDERABLES Fin al Result Performing Organization Address [facility] Co de Phone Number [facility] ([place]) [address] [place] [address] [place] [facility] * HIV 1/2 Antibody plus p24 Antigen Blood (12/11/2024 11:00 AM CDT) Pathologist [facility] HIV 1/2 ab + p24 ag Nonreactive Nonreactive Comment: Nonreactive for HIV-1 antigen and HIV-1/HIV-2 antibodies. No laboratory evidence of HIV infection. If acute HIV infection is suspected, consider testing for HIV-1 RNA. Testing performed by: [facility], [address] [place] [address], [place]., [address] Blood 12/11/2024 11:0 0 AM CDT 12/11/2024 7:15 PM CDT us Ever Gr MD LAB MICROBIOLOGY - GENER AL ORDERABLES Final Result Performing Organization Address City/[facility]/ZIP Co de Phone Number [facility] ([place]) 1 [facility] [place] [address] * (ABNORMAL) Urinalysis reflex to microscopic (12/11/2024 [...] tendency for uric acid stone formation. Source: [facility] [place] Current Interpretive Data was last revised on [...] LAB URINE ORDERABLES Fin al Result [facility] ([place]) 1 [facility] Department [place] [address] * Hepatitis panel, acute Blood (12/11/2024 11:00 AM CDT) Hep A IgM Nonreactive Nonreactive Comment: Interpretive Data: If Hep A IgM Ab is reported as Equivocal, a new sample should be drawn in two weeks for testing. Current interpretive data was last revised on 19. Testing performed by: [facility], [address] [place] [address]., [address] Hep B core IgM Nonreactive Nonreactive C [facility] ([place]) Comment: Interpretive Data If HepB Core IgM Ab is reported as Equivocal, a new sample should be drawn in two weeks for testing. Current interpretive data was last revised on 19. Testing performed by: [facility], [address] [place] [address]., [address] Hep C Ab Nonreactive Nonreactive [facility]N SHAY [...] last revised on 2019. Testing performed by: [facility], [address] [place] [address]., [address] HepBsAg Nonreactive Nonreactive [facility] ([place]) Comment:Testing performed by : [address] [address] Blood 12/11/2024 11:0 0 AM CDT 12/11/2024 4:22 PM CDT Ever Gr MD LAB MICROBIOLOGY - [facility] ORDERABLES Final Result [facility] ([place]) 1 [facility] Department [place] [address] * (ABNORMAL) Urinalysis, microscopic only (12/11/2024 11:00 AM CDT) WBC, ur 6-10(A) 0 - 5 /HPF RBC, ur >50(A) 0 - 2 /HPF [facility] ([place]) Epithelial cells, squamous, ur 1-5 0 - 5 /HPF [facility] ([place]) Mucous, ur Present(A) [facility] [place] ([place]) Urine 12/11/2024 11:0 0 AM CDT 12/11/2024 11:16 AM CDT Ever Gr MD LAB URINE ORDERABLES Fin al Result Performing Organization Address [facility] Co de Phone Number A[facility]N [facility] ([place]) 1 [facility] [place] [address] * Urine culture Urine (12/11/2024 11:00 AM CDT) Report Final Report: Less than 100,000 colonies/mL (clinically insignificant growth based on current clinical standards) Comment:Testing performed by : [facility], [address] [place] [address]., [address] Organism (CLINICALLY INSIGNIFICANT GROWTH [facility] ([place]) Urine 12/11/2024 11:0 0 AM CDT 12/11/2024 2:10 PM CDT Narrative [facility] ([place]) - 12/13/2024 10:27 AM CDT Testing performed by [facility] Microbiology Laboratory ([phone]) Ever Gr MD LAB MICROBIOLOGY - GENER AL ORDERABLES Final Result Performing Organization Address [facility] Co de Phone Number [facility] ([place]) 1 [facility] [place] [address] * Surgical pathology (12/08/2024 12:00 AM CDT) Skin, shave biopsy 12/08/2024 12/09/2024 12:12 PM CDT Narrative 12/17/2024 9:39 PM CDT EPIC results best viewed via link to PDF [facility] [address] [place] [address], [address], [place] [address] [email or web address] Note to Patients: This report [...] Physician Information: Dr. Gary Bergeron M.D. [address] [facility], [address] [place] [address], [phone] DERMATOPATHOLOGY REPORT RESULTS DIAGNOSIS: SKIN, LEFT DISTAL [...] time of procedure. sxt/mat Clerical Data A; 499[address], [address] The characteristics of special, immunohistochemical, and immunofluorescence stains and in-situ hybridization tests performed by the [facility] were deemed acceptable in ongoing quality review specialist measures and in compliance with regulations drawn from the Clinical Laboratory Improvement Act ae7813 (CLIA '88). Control reactions for all stains performed were deemed adequate and appropriate by a pathologist prior to evaluation of patient tissue. Some diagnoses were rendered with the assistance of laboratory-developed tests utilizing analyte-specific reagents; the performance characteristic of these tests were determined by [facility] and are not cleared or approved by the [place] Food an Drug administration. Laboratory developed test may only be performed in a facility that is certified by the [facility] as a high-complexity laboratory under CLIA '88. These tests are used for clinical purposes and are not investigational. Gary Bergeron MD LAB PATHOLOGY ORDERABLES Final Result * Sepsis Lactate w/ Reflex (12/07/2024 9:48 PM CDT) Sepsis Lactate 1.0 0.7 - 2.0 mmol/L Blood 12/07/2024 9:48 PM CDT 12/07/2024 9:51 PM CDT Cecile MORAES LAB BLOOD ORDERABLES Final Resu lt [facility] [place] 1 [facility] Department [place] [address] * eGFR (12/07/2024 9:48 PM [...] BLOOD ORDERABLES Final Resu lt [facility] ([place]) 1 [facility] Department [place] [address] * (ABNORMAL) Differential, auto (12/07/2024 9:48 PM [...] Final Resu lt [facility] ([place] 1 [facility] [place] [address] * (ABNORMAL) CBC with auto differential (12/07/2024 9:48 PM CDT) WBC 14.1(H) 3.8 - 9.9 K/cumm Hgb 16.1 13.0 - 17.5 g/dL [facility] ([place]) Hct 47.0 38.9 - 50.3 % [facility] ([place] Plt 237 150 - 400 K/cumm [facility] [place] MPV 9.0(L) 9.1 - 12.3 fL [facility] RBC 5.52 4.30 - 5.80 M/cumm [facility] [place] MCV 85.1 81.3 - 96.4 fL [facility] [place] MCH 29.2 27.1 - 33.3 pg [facility] [place] MCHC 34.3 32.3 - 35.7 g/dL [facility] [place] RDW CV 13.7 11.1 - 14.9 % [facility] [place] RDW SD 42.7 35.7 - 48.1 fL [facility] [place] NRBC abs 0.00 0.00 - 0.01 K/cumm [facility] [place] Blood 12/07/2024 9:48 PM CDT 12/07/2024 9:51 PM CDT us Cecile MORAES LAB BLOOD ORDERABLES Final Resu lt [facility] [place] 1 [facility] [place] [address] * (ABNORMAL) Comprehensive metabolic panel (12/07/2024 9:48 PM CDT) Sodium 136 135 - 145 mmol/L Potassium, pl 4.0 3.3 - 4.9 mmol/L [facility] [place] Chloride 101 97 - 110 mmol/L [facility] [place]) CO2 24 22 - 32 mmol/L [facility] [place]) Anion gap 11 2 - 15 mmol/L [facility] [place] BUN 12 6 - 25 mg/dL [facility] ([place] Creatinine 1.15 0.80 - 1.30 mg/dL [facility] [place] Glucose 123 70 - 199 mg/dL [facility] [place] Comment: Interpretive Data Fasting [...] MORAES LAB BLOOD ORDERABLES Final Resu lt Performing Organization Address [facility]/ZIP Co de Phone Number [facility] [address] [place] [address] [place] [address] * PSA screen (02/18/2024 8:12 AM CDT) [...] ORDERABLES Fin al Result Performing Organization Address City/[facility]/ZIP Co de Phone Number [facility] 1 [facility] [place] [address] * FLEXIBLE SIGMOIDOSCOPY (04/24/2021 9:06 AM CDT) Anatomical Region Laterality Modality Other Narrative Procedure Note Rosa Maria Nielsen MD - 04/24/2021 9:06 AM CDT [facility] Patient Name: Cinthia Voss Procedure Date: 04/24/2021 9:06 AM Date of : 1950 Admit Type: Inpatient Age: 70 Gender: Male Attending MD: Rosa Maria Nielsen M.D. Room: [facility] ENDOSCOPY ROOM 1 Note Status: Finalized [...] passed under direct vision. The Endoscope GIF-H190 [id number] was introduced through the anus and advanced [...] 9:06 AM Procedure Code(s): --- Professional --- 98463, Sigmoidoscopy, flexible; diagnostic, including collection of specimen(s) by brushing or washing, when performed (separateprocedure) Diagnosis Code(s): --- Professional --- R93.3, Abnormal findings on diagnostic imaging of other parts of digestive tract CPT copyright 2019 [employer]. All rights reserved. The codes documented in this report are preliminary and upon paperhanger contractor reviewmay be revised to meet current compliance requirements. Recognized by the [employer] for promoting quality in endoscopy us Rosa Maria Nielsen MD ENDOSCOPY PROCEDURES Final Result * COLONOSCOPY (03/10/2019 11:02 AM CDT) Anatomical Region Laterality Modality Other Narrative Procedure Note Rosa Maria Nielsen MD - 03/10/2019 11:02 AM CDT [facility] Patient Name: Cinthia Voss Procedure Date: 03/10/2019 11:02 AM Date of : 1950 Admit Type: Outpatient Age: 68 Gender: Male Attending MD: Rosa Maria Nielsen M.D. Room: [facility] ENDOSCOPY [facility] 1 Note Status: Finalized [...] passed under direct vision.The Pediatric Colonoscope [id number]-H190L [id number] was used initially but then replaced with [...] 11:02 AM Procedure Code(s): --- Professional --- 51740, 52, Colonoscopy, flexible; diagnostic, including collection of [...] parts of digestive tract CPT copyright 2017 [employer]. All rights reserved. The codes documented in this report are preliminary and upon paperhanger contractor reviewmay be revised to meet current compliance requirements. 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
--- OUTSIDE RECORDS SUMMARY | 2025-02-11 13:17 | XMS_ITS | Clinical Summary ---
Author Organization [facility] Address [address] 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
--- OUTSIDE RECORDS SUMMARY | 2025-02-11 13:17 | XMS_ITS | Clinical Summary ---
Author Organization [facility] Address [address] [place] [address] Care Team Providers Care Media Monitor Name Role Phone Ever Gr MD Primary Care Provider + Jack Washington MD Unavailable [phone] Ever Gaspar MD Unavailable [phone] Matt Martinez NP Unavailable [phone] Allergies Active Allergy Reactions Criticality Noted Date [...] (08/08/2022): Added automatically from request for surgery [id number] Kidney stone 08/08/2022 Overview (08/08/2022): Added automatically from request for surgery [id number] High cholesterol 07/27/2022 Other chest pain 04/03/2022 [...] (05/14/2019): Added automatically from request for surgery [id number] Abnormal CT scan 02/16/2019 Overview (02/16/2019): Added automatically from request for surgery [id number] Abnormal feces 02/16/2019 Overview (02/16/2019): Added automatically from request for surgery [id number] Chronic pain of left knee 08/27/2018 Arthritis of left knee 08/27/2018 Acute medial meniscus tear of left knee 08/27/20 18 Preoperative evaluation to r ule out surgical contraindication 06/11/2018 Assessment & Plan (04/28/2024 9:03 AM CDT): The patient is cleared for the proposed total knee replacement. Rotator cuff arthropathy of left shoulder 2017 Overview (05/27/2018): Added automatically from request for surgery [id number] Bicipital tendinitis, left 05/27/2018 Overview (05/27/2018): Added automatically from request for surgery [id number] Localized osteoarthritis of left shoulder 2017 Obstructive sleep apnea syndrome 03/21/2018 Myalgia 02/10/2018 Rotator cuff arthropathy, left 11/21/2017 Overview (11/21/2017): Added automatically from request for surgery [id number] Left bicipital tenosynovitis 11/21/2017 Overview (11/21/2017): Added automatically from request for surgery [id number] Cervicalgia 10/15/2017 Cervical radiculopathy 10/15/2017 Spondylosis of [...] (05/24/2021): Added automatically from request for surgery [id number] Assessment & Plan (06/16/2021 6:28 AM CDT): [...] Type Department Care Team Description 02/05/2025 Telephone [place] [facility] [address] [place] [phone] Results 02/02/2025 8:34 AM CDT - 02/02/2025 11:59 PM CDT Hospital Encounter [facility] ([facility]) [address] [place] [address] Dyspnea on exertion Discharge Disposition: Discharge to home or self care 01/22/2025 Telephone [place] [facility] [address] [place] [phone] Nancy Catherine MA R/[facility] Denial 01/19/2025 Orders Only [place] [facility] [address] [place] [phone] Walter Yao MD Dyspnea on exertion (Primary Dx) 01/12/2025 10:00 AM CDT Office Visit [place] [facility] [address] [place] [phone] Walter Yao MD Diastolic dysfunction (Primary Dx); Mixed hyperlipidemia; Left anterior fascicular block; Dyspnea on exertion 01/05/2025 Telephone [place] [facility] [address] [place] [phone] Walter Yao MD 12/31/2024 8:28 AM CDT - 12/31/2024 11:59 PM CDT Hospital Encounter [facility] Cardiology [address] [place] [phone] Dyspnea, unspecified type Discharge Disposition: Discharge to home or self care 12/22/2024 8:25 AM CDT Lab [address] [address] 12/17/2024 9:25 AM CDT Lab [address] [phone] 12/12/2024 8:10 AM CDT Lab [address] [address] 12/11/2024 10:50 AM CDT Lab [address] [address] 12/08/2024 Orders Only [facility] [address] [place] [address] Gary Bergeron MD 12/07/2024 8:10 PM CDT - 12/07/2024 10:41 PM CDT Emergency [facility] Emergency Department [address] [place] [phone] Rash (Primary Dx) Discharge Disposition: Discharge to [...] Diverticulosis Sleep apnea CPAP, it works for me; 05/14/18 last sleep study Osteoarthritis Sleep apnea, [...] e of : Cirrhosis Other Mother Yas Richards dise ase; Cause of : Yas Gehrig [...] on file 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[employer] Gender Identity Not on file Sexual Orientation [...] 05/14/2019, 10/14/2017, Additional history exists Covid-19 Vaccine (2023-2 5 season) 2024 11/30/2020, 11/02/2020 Influenza Vaccine [...] Completed 12/11/2024 Medical Devices Implanted Type Area As400 Programmer Device Identifier Shelf Expiration Date Model / Serial / Lot Exactech 320-38-00 Equinoxe 38mm Reverse Shoulder +0mm Liner Humeral - [id number] - [id number] Implanted:Qty: 1 on 06/10/2018 by Steven Downs MD at [facility] Other - see comments Left: Shoulder Exactech 320-38-00 / [id number] / Exactech 320-01-38 38mm Glenosphere Reverse Shoulder Component Glenoid - [id number] - [id number] Implanted:Qty: 1 on 06/10/2018 by Steven Downs MD at [facility] Other - see comments Left: Shoulder Exactech 05/07/2028 320-01-38 / [id number] / Exactech 320-15-01 Equinoxe Reverse Shoulder Standard Plate Glenoid - [id number] - [id number] Implanted:Qty: 1 on 06/10/2018 by Steven Downs MD at [facility] Other - see comments Left: Shoulder Exactech 04/13/2028 320-15- / [id number] / Exactech 320-20-00 Reverse Torque Define Shoulder Kit Screw - [id number] - [id number] Implanted:Qty: 1 on 06/10/2018 by Steven Downs MD at [facility] Other - see comments Left: Shoulder Exactech 05/07/2023 320-20-00 / [id number] / Exactech 320-20-18 Equinoxe 4.5mm 18mm Kit Compression Lock Cap Reverse Shoulder - [id number] - [id number] Implanted:Qty: 1 on 06/10/2018 by Steven Downs MD at [facility] Other - see comments Left: Shoulder Exactech 01/14/2023 320-20-18 / [id number] / Exactech 320-10-00 Equinoxe Reverse Shoulder +0mm Tray Humeral Adapter - [id number] - [id number] Implanted:Qty: 1 on 06/10/2018 by Steven Downs MD at [facility] Other - see comments Left: Shoulder Exactech 04/07/2028 320-10-00 / [id number] / Exactech 300-30-08 Equinoxe 8mm 70mm Stem Humeral Sterile - [id number] - [id number] Implanted:Qty: 1 on 06/10/2018 by Steven Downs MD at [facility] Other - see comments Left: Shoulder Exactech 11/27/2027 300-30-08 / [id number] / Exactech 320-15-05 Equinoxe Lock Reverse Shoulder Glenosphere Screw Bone - [id number] - [id number] Implanted:Qty: 1 on 06/10/2018 by Steven Downs MD at [facility] Screw Left: Shoulder Exactech 06/08/2023 320-15-05 / [id number] / Exactech 320-20-38 Equinoxe 4.5mm 38mm Kit Compression Lock Cap Reverse Shoulder - [id number] - [id number] Implanted:Qty: 1 on 06/10/2018 by Steven Downs MD at [facility] Screw Left: Shoulder Exactech 01/08/2023 320-20-38 / [id number] / Exactech 320-20-18 Equinoxe 4.5mm 18mm Kit Compression Lock Cap Reverse Shoulder - [id number] - [id number] Implanted:Qty: 1 on 06/10/2018 by Steven Downs MD at [facility] Screw Left: Shoulder Exactech 03/22/2021 320-20-18 / [id number] / [employer] [id number] Attune 5mm Cruciate Retaining Rotate Platform Knee 8 Insert - [id number] Implanted:Qty: 1 on 06/02/2019 by Steven Downs MD at [facility] Left: Knee [employer] 04/08/2024 [id number] / / [id number] [employer] [id number] Attune Cruciate Retain Cementless Knee Left 8 Component Femoral - [id number] Implanted:Qty: 1 on 06/02/2019 by Steven Downs MD at [facility] Left: Knee [employer] 10/09/2027 [id number] / / [id number] [employer] [id number] Attune Cementless Rotate Platform Knee 8 Baseplate Tibial - [id number] Implanted:Qty: 1 on 06/02/2019 by Steven Downs MD at [facility] Left: Knee [employer] 06/08/2028 [id number] / / [id number] [employer] Attune Cruciate Retain Cementless Knee Right 8 Component Femoral [id number] - [id number] Implanted:Qty: 1 on 06/02/2024 by Steven Downs MD at [facility] Right: Knee [employer] [id number] 04/08/2034 [id number] / / [id number] [employer] Attune Fb Tib Base Sz 7 Por [id number] - [id number] Implanted:Qty: 1 on 06/02/2024 by Steven Downs MD at [facility] Right: Knee [employer] [id number] 03/08/2034 [id number] / / [id number] [employer] Insert Tibial Knee Fixed Rm Posterior Stabilized Attune 6mm Size 8 Polyethylene [id number] - [id number] Implanted:Qty: 1 on 06/02/2024 by Steven Downs MD at [facility] Right: Knee [employer] [id number] 02/06/2031 [id number] / / [id number] Explanted Type Area As400 Programmer Device Identifier Shelf Expiration Date Model / Serial / Lot [employer] [id number] 6fr 24cm 145cm Radiopaque Positioner Filiform Flexible Tip - [id number] Implanted:Qty: 1 on 09/13/2022 by Kristie Mcfarland MD at [facility] Explanted:Qty: 1 on 09/21/2022 by Kristie Mcfarland MD Left: Ureter [employer] [id number] 12/05/2024 [id number] / / [id number] [employer] [id number] 6fr 24cm 145cm Radiopaque Positioner Filiform Flexible Tip - [id number] Implanted:Qty: 1 on 09/13/2022 by Kristie Mcfarland MD at [facility] Explanted:Qty: 1 on 09/21/2022 by Kristie Mcfarland MD Right: Ureter [employer] [id number] 12/05/2024 [id number] / / [id number] Procedures Procedure Name Priority Date/Time Associated Diagnosis [...] the coronary arteries Right coronary system: Septal diesel dinkey operator arising from the proximal RCA. No obstructive [...] the coronary arteries Right coronary system: Septal diesel dinkey operator arising from the proximal RCA. No obstructive [...] by: Ward Pulido M.D. Walter Yao MD IM CT PROCEDURES Final Result * TRANSTHORACIC ECHO (TTE) COMPLETE W DOPPLER/CF WO CONTRAST (12/31/2024 9:39 AM CDT) LV EF 65 % CONS SCIMAGE Anatomical Region Laterality Modality Ultrasound 12/31/2024 9:04 AM CDT Narrative 12/31/2024 2:24 PM CDT [address] [address] Echocardiogram Report Patient Name: CINTHIA VOSS : [...] Note Callum Elias MD - 12/31/[address] [address] Echocardiogram Report Patient Name: CINTHIA VOSS : [...] last revised on 2020. Testing performed by: [facility], 1 [facility], [place]., [address] Blood 12/22/2024 8:31 AM CDT 12/22/2024 2:28 PM CDT Gary Bergeron MD LAB BLOOD ORDERABLES Final Resu lt Performing Organization Address 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 Co de Phone Number ASHLYN SH[facility] ([place]) [address] [place] [address] * Anti-double stranded DNA abs (12/22/2024 8:31 AM CDT) dsDNA Ab <1.0 <=4.0 IUnits/mL Comment: Interpretive Data Negative: < or = 4 IUnits/mL Indeterminate: 5 - 9 IUnits/mL Positive: > or = 10 IUnits/mL Current interpretive data was last revised on 2017. Testing performed by: [facility], [address] [place]., [address] Blood 12/22/2024 8:31 AM CDT 12/22/2024 2:28 PM CDT Narrative [facility] ([place]) - 12/23/2024 10:57 AM CDT [id number] Gary Bergeron MD LAB BLOOD ORDERABLES Final Resu lt Performing Organization Address [facility] de Phone Number [facility] ([place]) [address] [place] [address] * (ABNORMAL) Urinalysis reflex to microscopic and culture Urine (12/17/2024 9:27 AM CDT) Color, ur Dark-Yellow Clarity, ur Turbid(A) Clear [facility]N A ([place]) Specific gravity, ur 1.026 1.003 - 1.030 [facility] ([place]) pH, urine 6.0 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 ([place]) Comment: Interpretive Data U rine pH is affected by diet, medications, systemic acid-base disturbances, and renal tubular function. pH may affect urinary stone formation. For example, urine pH below 6.0 may help reduce the tendency for calcium phosphate stones and pH greater than 6.0 may reduce the tendency for uric acid stone formation. Source: [facility] [place] Current Interpretive Data was last revised on [...] Reflex to microscopic UA will be performed. [facility] ([place]) Urine 12/17/2024 9:27 AM CDT 12/17/2024 10:41 AM CDT us Ever Gr MD LAB MICROBIOLOGY - GENER AL ORDERABLES Final Result Performing Organization Address 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 Co de Phone Number [facility]N [facility] ([place]) 1 [facility] [place] [address] * (ABNORMAL) Urinalysis, microscopic only (12/17/2024 9:27 AM CDT) WBC, ur 21-50(A) 0 - 5 /HPF RBC, ur >50(A) 0 - 2 /HPF [facility] ([place]) Epithelial cells, squamous, ur 1-5 0 - 5 /HPF [facility] ([place]) Mucous, ur Present(A) [facility] ([place]) Culture Reflex Comment Reflex to urine culture will be performed. [facility] ([place]) Urine 12/17/2024 9:27 AM CDT 12/17/2024 10:41 AM CDT us Ever Gr MD LAB URINE ORDERABLES Fin al Result Performing Organization Address 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 Co de Phone Number [facility] ([place]) 1 [facility] [place] [address] * Urine culture Urine (12/17/2024 9:27 AM CDT) Report Final Report: Less than 100,000 colonies/mL (clinically insignificant growth based on current clinical standards) Comment:Testing performed by : [facility], [address] [place] [address] Organism (CLINICALLY INSIGNIFICANT GROWTH [facility] ([place]) Urine 12/17/2024 9:27 AM CDT 12/17/2024 3:34 PM CDT Narrative [facility] ([place]) - 12/19/2024 7:41 AM CDT Urine culture reflexed based upon urinalysis results. Testing performed by [facility] Microbiology Laboratory ([phone]) Ever Gr MD LAB MICROBIOLOGY - GENER AL ORDERABLES Final Result Performing Organization Address City/[facility]/ZIP Co de Phone Number 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 ([place]) [address] [place] [address] [place] [address] * Cryoglobulin, serum only (12/12/2024 8:12 AM CDT) Cryoglobulin, quant See Comment Negative [place] ref Lab Comment: Negative. The quantity of serum submitted and received is not sufficient to reliably rule out the presence of a cryoglobulin. Suggest submitting a serum sample of at least 2.0 - 2.5 mL. Test Performed by: [facility] [place] [address] [place] [id number] Clinical Practice Consultant: Emerald Solares Ph.D.; CLIA# [id number] Blood 12/12/2024 8:12 AM CDT 12/12/2024 8:17 AM CDT Ever Gr MD LAB BLOOD ORDERABLES Fin al Result [facility]D [facility] ([place]) 1 [facility] [place] [address] [place] ref [facility] * HIV 1/2 Antibody plus p24 Antigen Blood (12/11/2024 11:00 AM CDT) HIV 1/2 ab + p24 ag Nonreactive Nonreactive Comment: Nonreactive for HIV-1 antigen and HIV-1/HIV-2 antibodies. No laboratory evidence of HIV infection. If acute HIV infection is suspected, consider testing for HIV-1 RNA. Testing performed by: [facility], [address] [place] [address], [place]., [address] Blood 12/11/2024 11:0 0 AM CDT 12/11/2024 7:15 PM CDT us Ever Gr MD LAB MICROBIOLOGY - GENER AL ORDERABLES Final Result [facility]N [facility] ([place]) 1 [facility] [place] [address] * (ABNORMAL) Urinalysis reflex to microscopic (12/11/2024 [...] uric acid stone formation. Source: [facility] [place] Current Interpretive Data was last revised on [...] to microscopic UA will be performed. [facility] ([place]) Urine 12/11/2024 11:0 0 AM CDT 12/11/2024 11:16 AM CDT us Ever Gr MD LAB URINE ORDERABLES Fin al Result [facility]N [facility] ([place]) 1 [facility] [place] [address] * Hepatitis panel, acute Blood (12/11/2024 11:00 AM CDT) Hep A IgM Nonreactive Nonreactive Comment: Interpretive Data: If Hep A IgM Ab is reported as Equivocal, a new sample should be drawn in two weeks for testing. Current interpretive data was last revised on 19. Testing performed by: [address] [address] Hep B core IgM Nonreactive Nonreactive Misael SHAY ([place]) Comment: Interpretive Data If HepB Core IgM Ab is reported as Equivocal, a new sample should be drawn in two weeks for testing. Current interpretive data was last revised on 19. Testing performed by: [facility], [address] [place] [address]., [address] Hep C Ab Nonreactive Nonreactive ASHLYN SHAY [...] last revised on 2019. Testing performed by: [address] [address] HepBsAg Nonreactive Nonreactive [facility]N [facility] ([place]) Comment:Testing performed by : [address] [address] Blood 12/11/2024 11:0 0 AM CDT 12/11/2024 4:22 PM CDT us Ever Gr MD LAB MICROBIOLOGY - GENER AL ORDERABLES Final Result Performing Organization Address City/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 Co de Phone Number A[facility]LYN SHAY ([place]) [address] [place] [address] * (ABNORMAL) Urinalysis, microscopic only (12/11/2024 11:00 AM CDT) WBC, ur 6-10(A) 0 - 5 /HPF RBC, ur >50(A) 0 - 2 /HPF [facility] ([place]) Epithelial cells, squamous, ur 1-5 0 - 5 /HPF [facility] ([place]) Mucous, ur Present(A) [facility] ([place]) Urine 12/11/2024 11:0 0 AM CDT 12/11/2024 11:16 AM CDT Ever Gr MD LAB URINE ORDERABLES Fin al Result Performing Organization Address 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 Co de Phone Number ASHLYN SHAY ([place]) [address] [place] [address] * Urine culture Urine (12/11/2024 11:00 AM CDT) Report Final Report: Less than 100,000 colonies/mL (clinically insignificant growth based on current clinical standards) Comment:Testing performed by : [facility], [address] [place] [address] Organism (CLINICALLY INSIGNIFICANT GROWTH [facility] ([place]) Urine 12/11/2024 11:0 0 AM CDT 12/11/2024 2:10 PM CDT Narrative [facility] ([place]) - 12/13/2024 10:27 AM CDT Testing performed by [facility] Microbiology Laboratory ([phone]) Ever Gr MD LAB MICROBIOLOGY - GENER AL ORDERABLES Final Result Performing Organization Address City/[facility]/ZIP Co de Phone Number [facility] [place] 1 [facility] [place] [address] * Surgical pathology (12/08/2024 12:00 AM CDT) Skin, shave biopsy 12/08/2024 12/09/2024 12:12 PM CDT Narrative 12/17/2024 9:39 PM CDT EPIC results best viewed via link to PDF [facility] Dermatopathology [facility] [address] [place] [address], [address], [place] [address] [email or web address] Note to Patients: This report may contain [...] Physician Information: Dr. Gary Bergeron M.D. [address] [facility], [address] [place] [address], [phone] DERMATOPATHOLOGY REPORT RESULTS DIAGNOSIS: SKIN, LEFT DISTAL [...] time of procedure. sxt/mat Clerical Data A; [address], [address] The characteristics of special, immunohistochemical, and immunofluorescence stains and in-situ hybridization tests performed by the [facility] were deemed acceptable in ongoing quality assurance assessor measures and in compliance with regulations drawn from the Clinical Laboratory Improvement Act aq3590 (CLIA '88). Control reactions for all stains performed were deemed adequate and appropriate by a pathologist prior to evaluation of patient tissue. Some diagnoses were rendered with the assistance of laboratory-developed tests utilizing analyte-specific reagents; the performance characteristic of these tests were determined by [facility] and are not cleared or approved by the [place] Food an Drug administration. Laboratory developed test may only be performed in a facility that is certified by the [facility] as a high-complexity laboratory under CLIA '88. These tests are used for clinical purposes and are not investigational. Gary Bergeron MD LAB PATHOLOGY ORDERABLES Final Result * Sepsis Lactate w/ Reflex (12/07/2024 9:48 PM CDT) Sepsis Lactate 1.0 0.7 - 2.0 mmol/L Blood 12/07/2024 9:48 PM CDT 12/07/2024 9:51 PM CDT Cecile MORAES LAB BLOOD ORDERABLES Final Resu lt ASHLYN SHAY ([place]) 1 [facility] [employer] [place] [address] * eGFR (12/07/2024 9:48 PM CDT) eGFR [...] BLOOD ORDERABLES Final Resu lt ASHLYN SHAY ([place]) 1 [facility] [place] [place] [address] * (ABNORMAL) Differential, auto (12/07/2024 9:48 PM CDT) Neutrophil abs 10.8(H) 1.5 - 6.5 K/cumm Imm gran abs 0.1 0.0 - 0.1 K/cumm ASHLYN SHAY ([place]) Lymphocyte abs 2.1 0.8 - 3.3 [...] Final Resu lt [facility] ([place]) 1 [facility] [place] [address] * (ABNORMAL) CBC with auto differential (12/07/2024 9:48 PM CDT) WBC 14.1(H) 3.8 - 9.9 K/cumm Hgb 16.1 13.0 - 17.5 g/dL [facility] ([place]) Hct 47.0 38.9 - 50.3 % [facility]ER [...] Final Resu lt ASHLYN SHAY ([place]) 1 [facility] [place] [address] * (ABNORMAL) Comprehensive metabolic panel (12/07/2024 9:48 PM CDT) Pathologist [facility] Sodium 136 135 - 145 mmol/L Potassium, [...] Final Resu lt [facility] ([place]) 1 [facility] [place] [address] * PSA screen (02/18/2024 8:12 AM CDT) [...] LAB BLOOD ORDERABLES Fin al Result [facility] ([place]) 1 [facility] Department of Laboratories [place], [place] [id number] * FLEXIBLE SIGMOIDOSCOPY (04/24/2021 9:06 AM CDT) Anatomical Region Laterality Modality Other Narrative Procedure Note Rosa Maria Nielsen MD - 04/24/2021 9:06 AM CDT [facility] Patient Name: Cinthia Voss Procedure Date: 04/24/2021 9:06 AM Date of : 1950 Admit Type: Inpatient Age: 70 Gender: Male Attending MD: Rosa Maria Nielsen M.D. Room: [facility]COPY [facility] 1 Note Status: Finalized Patient [...] passed under direct vision. The Endoscope [id number] [id number] was introduced through the anus and advanced [...] 9:06 AM Procedure Code(s): --- Professional --- 58744, Sigmoidoscopy, flexible; diagnostic, including collection of specimen(s) by brushing or washing, when performed (separateprocedure) Diagnosis Code(s): --- Professional --- R93.3, Abnormal findings on diagnostic imaging of other parts of digestive tract CPT copyright 2019 [employer]. All rights reserved. The codes documented in this report are preliminary and upon food service worker reviewmay be revised to meet current compliance requirements. Recognized by the [employer] for promoting quality in endoscopy Rosa Maria Nielsen MD ENDOSCOPY PROCEDURES Final Result * COLONOSCOPY (03/10/2019 11:02 AM CDT) Anatomical Region Laterality Modality Other Narrative Procedure Note Rosa Maria Nielsne MD - 03/10/2019 11:02 AM CDT [facility] Patient Name: Cinthia Voss Procedure Date: 03/10/2019 11:02 AM Date of : 1950 Admit Type: Outpatient Age: 68 Gender: Male Attending MD: Rosa Maria Nielsen M.D. Room: [facility] 1 Note Status: Finalized Patient [...] passed under direct vision.The Pediatric Colonoscope [id number]-H190L [id number] was used initially but then replaced with [...] 11:02 AM Procedure Code(s): --- Professional --- 91460, 52, Colonoscopy, flexible; diagnostic, including collection of [...] parts of digestive tract CPT copyright 2017 [employer]. All rights reserved. The codes documented in this report are preliminary and upon food service worker reviewmay be revised to meet current compliance requirements. Recognized by the [employer] for promoting quality in endoscopy Rosa Maria Nielsen MD ENDOSCOPY PROCEDURES Final Result from Last 3 Months or Most Recently Relevant to Health Maintenance Insurance [employer] P[employer] MEDICARE AET MEDICARE [facility] HMO/POS MEDICARE [facility] HMO/POS [employer] [place] HMO/POS Advance Directives For more information, please contact: [phone] Documents on File Type Date Recorded Patient Care Taker Expl anation ADVANCE DIRECTIVE 03/10/2018 6:52 PM [...] 10:16 AM 03/10/2019 6:35 PM Care Teams Media Monitor Relationship Specialty Start Date End Date Ever Gr MD [address] [place] [address] PCP - General Internal Medicine 04/24/18 Jack Washington MD [address] [place] [id number] Consulting Physician Infectious Diseases 04/26/21 Ever Gaspar MD [address] [place] [id number] Surgeon General Surgery 04/26/21 Matt Martinez NP [address] [place] [address] [place] [id number] Nurse Practitioner Orthopedic Surgery 06/03/24
== END 2025-02-11 12:45 | disposition home or self-care (01) ==
PROVIDERS: PCP Internal Medicine; Visit Provider Urology
DX: N20.0 Calculus of kidney (principal)
CPT/HCPCS: 74018